=== PATIENT | male | born 1950 | race Caucasian/White ===

== ENCOUNTER 2020-07-18 20:22 | Inpatient (IN) | payer MEDICARE, SELFPAY ==
[2020-07-18 20:31] VITALS: BP 109/72; PULSE 84; RESP 17; TEMP 36.3; O2SAT 97; BMI 38.7
--- NOTE | 2020-07-18 20:43 | CTR_ITS ---
PROCEDURE INFORMATION: Exam: CT Abdomen And Pelvis With Contrast Exam date and time: 07/18/2020 10:46 PM Age: 70 years old Clinical indication: Constipation TECHNIQUE: Imaging protocol: Computed tomography of the abdomen and pelvis with intravenous contrast. Radiation optimization: All CT scans at this facility use at least one of these dose optimization techniques: automated exposure control; mA and/or kV adjustment per patient size (includes targeted exams where dose is matched to clinical indication); or iterative reconstruction. Contrast material: VISI 320; Contrast volume: 95 ml; Contrast route: INTRAVENOUS (IV); COMPARISON: No relevant prior studies available. RADIATION DOSE METRICS: Total DLP (mGy-cm): 1797.71 FINDINGS: Lungs: There is a right upper lobe pulmonary nodularity seen adjacent to the major fissure partially imaged today measuring 3.3 cm AP dimension by 3.5 cm transverse dimension. Further evaluation with a CT examination of the chest is suggested. Liver: Normal. No mass. Gallbladder and bile ducts: Normal. No calcified stones. No ductal dilation. Pancreas: Normal. No ductal dilation. Spleen: Normal. No splenomegaly. Adrenal glands: Normal. No mass. Kidneys and ureters: Normal. No hydronephrosis. Stomach and bowel: Diverticula are seen on the descending and sigmoid colon. There are no inflammatory changes seen to suggest diverticulitis. 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 There is a soft tissue nidus and some fine soft tissue attenuation strands seen within the fatty tumor. There is some irregular bowel wall thickening of the proximal duodenum, possibly the sequela of duodenal ulceration. Appendix: The appendix is visualized and is normal in configuration. Intraperitoneal space: See Vasculature finding. Vasculature: Calcifications are seen within the coronary arteries. Calcifications are present within the thoracic and abdominal aorta, iliac arteries and femoral arteries bilaterally and branches of the celiac and superior mesenteric arteries. Calcifications are seen within the renal arteries bilaterally. There is aneurysmal dilatation of the infrarenal abdominal aorta measuring 3.9 cm transverse dimension by 4.4 cm AP dimension approximately 5 1 cm craniocaudal dimension. Mild irregular mural thrombus is seen predominately within the anterior aspect of the aneurysm. There is no evidence for dissection or extravasation. Lymph nodes: Unremarkable. No enlarged lymph nodes. Urinary bladder: Unremarkable as visualized. Reproductive: Unremarkable as visualized. Bones/joints: Unremarkable. No acute fracture. Soft tissues: See Stomach and bowel finding. CT/CT abdomen pelvis w con* [id number] IMPRESSION: 1. Fat attenuation mucosal mass seen within the stomach along the greater curvature, dimensions given above. Some soft tissue stranding and a soft tissue nidus is seen associated with the fatty mass. 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 2. Irregular bowel wall thickening of the proximal duodenum, possibly the sequela duodenal ulceration. 3. Diverticulosis of the descending and sigmoid colon 4. Aneurysmal dilatation of the infrarenal abdominal aorta measuring 4.4 cm AP dimension and approximately 5.1 cm craniocaudal dimension. There is no evidence for dissection or extravasation. 5. Partially imaged soft tissue nodularity in the right upper lobe adjacent to the major fissure measuring 3.3 cm AP dimension by 3.5 cm transverse dimension. Follow-up evaluation with CT examination is suggested. Radiation Dose CTDIVOL = (mGy): DLP = 1797.71 (mGy-cm)
--- NOTE | 2020-07-18 20:43 | XR_ITS ---
WS: [id number] PORTABLE CHEST HISTORY: sob COMPARISON: None available. Prior CABG. Consolidation in the RIGHT lower lung field. This consolidation has hazy opacification may be related to pleural fluid along the fissure. LEFT lung is clear. Small RIGHT pleural effusion with blunting o f the RIGHT costophrenic angle. Cardiac size: Mildly enlarged cardiac silhouette. Mediastinum/Aorta: Mild atherosclerosis aorta. No osseous abnormality seen. XR/XR chest 1V portable [id number] IMPRESSION: 1. Small RIGHT pleural effusion. 2. Additional hazy opacification at the RIGHT lung base may be fluid along the fissure or pneumonia.
--- NOTE | 2020-07-18 20:43 | CTR_ITS ---
PROCEDURE INFORMATION: Exam: CT Head Without Contrast Exam date and time: 07/18/2020 10:46 PM Age: 70 years old Clinical indication: Weakness, extremity TECHNIQUE: Imaging protocol: Computed tomography of the head without contrast. Radiation optimization: All CT scans at this facility use at least one of these dose optimization techniques: automated exposure control; mA and/or kV adjustment per patient size (includes targeted exams where dose is matched to clinical indication); or iterative reconstruction. COMPARISON: No relevant prior studies available. 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 Mild atrophy and mild white matter chronic microvascular changes are noted. No hemorrhage or CT evidence of acute infarction is seen. Cerebral ventricles: No ventriculomegaly. Bones/joints: Unremarkable. No acute fracture. Paranasal sinuses: Visualized sinuses are unremarkable. No fluid levels. Mastoid air cells: Visualized mastoid air cells are well aerated. Soft tissues: Unremarkable. CT/CT head wo con* [id number] IMPRESSION: No acute intracranial abnormality Radiation Dose CTDIVOL = (mGy): DLP = 857.21 (mGy-cm)
[2020-07-18 20:44] VITALS: BP 124/68; RESP 22; O2SAT 100
--- NOTE | 2020-07-18 20:44 | ECG_ITS ---
[facility] Test Date: 2020-07-18 Pat Name: Ravindra Lam Department: Room: Gender: Male Medical Records Clerk: : 1950 Requested By: Brittany Austin Order Number: [id number] Reading MD: FANAT MARIANO Measurements Intervals [place] Rate: 79 P: 17 WV: 147 QRS: 24 QRSD: 94 T: 93 QT: 359 QTc: 412 Interpretive Statements SINUS RHYTHM NONSPECIFIC ST & T-WAVE ABNORMALITY INTERPRETATION BASED ON A DEFAULT AGE OF 40 YEARS No previous ECG available for comparison Electronically Signed On 07-19-2020 20:05:43 LAMINATING PRESS OPERATOR by FANTA MARIANO [email or web address]/store/NU/[id number] f
--- NOTE | 2020-07-18 20:45 | W.ED.GENADLT ---
HPI - General Adult General: Chief complaint: General Medical Stated complaint: left side numbness/abd swelling Time Seen by Provider: 07/18/20 20:40 Source: patient Mode of arrival: ambulatory Limitations: no limitations History of Present Illness: HPI narrative: 70-year-old male that is here with multiple complaints. He states that he has been having abdominal pain along with nausea and constipation over the last 3 to 4 days. He states his pain is sharp in nature and rates it a 5 out of 10. He also has a history of congestive heart failure and just got over pneumonia 2 weeks ago. He states he had increased swelling in his legs along with chest pain and shortness of breath. He states he had generalized weakness and is having problems getting out of any chairs or standing. He states he is also having numbness to his hands and feet and left side of his face. Associated symptoms: Reports chest pain, dyspnea, malaise and nausea; Deny rash Review of Systems Const: Reports: body aches and malaise Eyes: Denies: blurry vision or eye discomfort ENMT: Denies: throat pain or dental pain Card: Reports: chest pain Resp: Reports: dyspnea GI: Reports: abdominal pain, nausea and constipation : Denies: dysuria Musc: Denies: neck pain or back pain Skin/Breast: Denies: rash Neuro: Reports: numbness in extremities Psych: Denies: depression Simón/Lymph: Denies: easy bruising All/Imm: Denies: urticaria Physical Exam Const: COMMON NORMALS: no acute distress and patient oriented x3 NUTRITIONAL APPEARANCE: obese HENMT: COMMON NORMALS: normocephalic and atraumatic HEAD & SCALP: normocephalic and atraumatic Eye: COMMON NORMALS: Equal, round and reactive pupils present and EOMs intact bilaterally PUPIL: Yes Equal, round and reactive pupils present Neck/C-Spine: COMMON NORMALS: full ROM and supple Chest: COMMONS NORMALS: normal inspection of the chest and normal palpation of entire chest wall Resp: COMMON NORMALS: normal respiratory effort, No retractions, No use of accessory muscles and clear to auscultation bilaterally AUSCULTATION: clear to auscultation bilaterally Cardio: COMMON NORMALS: regular rate, regular rhythm and No murmurs present (Cardio) RATE: regular rate RHYTHM: regular rhythm GI: COMMON NORMALS: Normal to inspection, nondistended, normoactive bowel sounds present, Soft to palpation, non-tender and no masses PALPATION: Yes Soft to palpation Extremity: COMMON NORMALS: normal to inspection and full ROM Neuro: COMMON NORMALS: patient oriented x3, moves all extremities and no focal motor deficits Psych: COMMON NORMALS: mental status grossly normal, Normal thought process present and cooperative THOUGHT PROCESS: Normal thought process present Skin: COMMON NORMALS: no rashes or lesions noted and no wounds GENERAL SKIN EXAM: no rashes or lesions noted Course Vital Signs: Vital signs: Vital Signs Temperature 97.4 F L 07/18/20 20:31 Pulse Rate 90 07/18/20 23:00 Respiratory Rate 14 07/18/20 23:00 Blood Pressure 141/73 07/18/20 23:00 Pulse Oximetry 96 07/18/20 23:00 MDM - General Adult MDM Narrative: Medical decision making narrative: jennifer presents here with generalized weakness and multiple other complaints. CT scan here was negative of his abdomen from no signs of bowel obstruction. Will CT his chest to further evaluate mass seen on CT abdomen. Patient is hyponatremic could be causing his weakness. Spoke to hospitalist will admit for observation for his hyponatremia. Lab Data: Labs: Lab Results 07/18/20 07/18/20 07/18/20 Range/Units 20:49 21:48 21:50 WBC 16.1 H (4.0-10.0) 10^3/ uL RBC 3.17 L (4.1-5.3) 10^6/u L Hgb 9.8 L (11.7-16.6) g/dL Hct 34.2 L (42.0-52.0) % MCV 107.9 H (80-94) fL MCH 30.9 (28.0-34.0) pg MCHC 28.7 L (30.0-36.0) g/dL RDW 13.1 (12.1-15.1) % Plt Count 206 (130-400) 10^3/c mm MPV 10.3 (7.4-10.4) fL Neut % (Auto) 77.0 % Lymph % (Auto) 8.8 % Stephens % (Auto) 10.0 % Eos % (Auto) 2.2 % Baso % (Auto) 0.6 % Neut # (Auto) 12.39 H (1.8-7.7) 10^3/u L Lymph # (Auto) 1.4 (0.8-4.8) 10^3/u L Stephens # (Auto) 1.6 H (0.2-0.9) 10^3/u L Eos # (Auto) 0.4 (0.0-0.8) 10^3/u L Baso # (Auto) 0.1 (0.0-0.1) 10^3/u L Nucleated RBC % (a uto) 0 % Nucleated RBCs # 0.0 /100WBC Sodium (136-145) mmol/L Potassium (3.5-5.1) mmol/L Chloride (98-107) mmol/L Carbon Dioxide (22-29) mmol/L Anion Gap (5-19) BUN (8-23) mg/dL Creatinine (0.7-1.2) mg/dL GFR Calculation (90-130) mL/min Glucose (65-115) mg/dL Calculated Osmolal ity (285-295) mOsm/k g Calcium (8.5-10.5) mg/dL Total Bilirubin (0.15-1.2) mg/dL AST (0-40) U/L ALT (0-41) U/L Alkaline Phosphata se (40-130) IU/L Troponin T Baselin e 40 H (0-15) ng/L NT-Pro-B Natriuret Pep (0-125) pg/mL Total Protein (6.6-8.7) g/dL Albumin (3.5-5.2) g/dL Globulin (1.3-4.6) g/dL Lipase (13-60) U/L Urine Color Yellow (Yellow) Urine Appearance Clear (CLEAR) Urine pH 5 (5-7) Ur Specific Gravit y 1.010 (1.005-1.030) Urine Protein Neg (Negative) Urine Glucose (UA) Norm (Normal) Urine Ketones Negative (Negative) Urine Blood Neg (Negative) Urine Nitrate Negative (Negative) Urine Bilirubin Neg (Negative) Urine Urobilinogen Norm (Negative) mg/dL Ur Leukocyte Mari ase Negative (Negative) SARS-CoV-2 Ag (Rap id) (Negative) 07/18/20 07/18/20 Range/Units 21:50 22:08 WBC (4.0-10.0) 10^3/ uL RBC (4.1-5.3) 10^6/u L Hgb (11.7-16.6) g/dL Hct (42.0-52.0) % MCV (80-94) fL MCH (28.0-34.0) pg MCHC (30.0-36.0) g/dL RDW (12.1-15.1) % Plt Count (130-400) 10^3/c mm MPV (7.4-10.4) fL Neut % (Auto) % Lymph % (Auto) % Stephens % (Auto) % Eos % (Auto) % Baso % (Auto) % Neut # (Auto) (1.8-7.7) 10^3/u L Lymph # (Auto) (0.8-4.8) 10^3/u L Stephens # (Auto) (0.2-0.9) 10^3/u L Eos # (Auto) (0.0-0.8) 10^3/u L Baso # (Auto) (0.0-0.1) 10^3/u L Nucleated RBC % (a uto) % Nucleated RBCs # /100WBC Sodium 124 L (136-145) mmol/L Potassium 4.8 (3.5-5.1) mmol/L Chloride 93 L (98-107) mmol/L Carbon Dioxide 17 L (22-29) mmol/L Anion Gap 18.8 (5-19) BUN 52 H (8-23) mg/dL Creatinine 1.4 H (0.7-1.2) mg/dL GFR Calculation 50.1 L (90-130) mL/min Glucose 102 (65-115) mg/dL Calculated Osmolal ity 272 L (285-295) mOsm/k g Calcium 8.2 L (8.5-10.5) mg/dL Total Bilirubin 0.3 (0.15-1.2) mg/dL AST 17 (0-40) U/L ALT 13 (0-41) U/L Alkaline Phosphata se 68 (40-130) IU/L Troponin T Baselin e (0-15) ng/L NT-Pro-B Natriuret Pep 290 H (0-125) pg/mL Total Protein 6.5 L (6.6-8.7) g/dL Albumin 2.9 L (3.5-5.2) g/dL Globulin 3.6 (1.3-4.6) g/dL Lipase 37 (13-60) U/L Urine Color (Yellow) Urine Appearance (CLEAR) Urine pH (5-7) Ur Specific Gravit y (1.005-1.030) Urine Protein (Negative) Urine Glucose (UA) (Normal) Urine Ketones (Negative) Urine Blood (Negative) Urine Nitrate (Negative) Urine Bilirubin (Negative) Urine Urobilinogen (Negative) mg/dL Ur Leukocyte Mari ase (Negative) SARS-CoV-2 Ag (Rap id) Negative (Negative) Imaging Data^: CT Head: Attestation: I personally reviewed and interpreted this imaging study as follows: Radiologist's impression: [id number] [address] [address] Scan Report Signed Patient: Jennifer Lam Unit #: [id number] : 1950 Age/Sex: 70 / M ADM Date: 07/18/20 Loc: ER Room/Bed: Attending Dr: Ordering Provider/Ordering MD: Brittany Austin MD Date of Service: 07/18/20 Procedure(s): CT head wo con* [id number] Accession Number(s): [id number] Report Number: [id number] PROCEDURE INFORMATION: Exam: CT Head Without Contrast Exam date and time: 07/18/2020 10:46 PM Age: 70 years old Clinical indication: Weakness, extremity TECHNIQUE: Imaging protocol: Computed tomography of the head without contrast. Radiation optimization: All CT scans at this facility use at least one of these dose optimization techniques: automated exposure control; mA and/or kV adjustment per patient size (includes targeted exams where dose is matched to clinical indication); or iterative reconstruction. COMPARISON: No relevant prior studies available. 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 Mild atrophy and mild white matter chronic microvascular changes are noted. No hemorrhage or CT evidence of acute infarction is seen. Cerebral ventricles: No ventriculomegaly. Bones/joints: Unremarkable. No acute fracture. Paranasal sinuses: Visualized sinuses are unremarkable. No fluid levels. Mastoid air cells: Visualized mastoid air cells are well aerated. Soft tissues: Unremarkable. CT/CT head wo con* [id number] IMPRESSION: No acute intracranial abnormality CT Abd/Pel: Radiologist's impression: [facility] [address] [place] [address] CT Scan Report Signed Patient: Jennifer Lam Unit #: [id number] : 1950 Age/Sex: 70 / M ADM Date: 07/18/20 Loc: ER Room/Bed: Attending Dr: Ordering Provider/Ordering MD: Brittany Austin MD Date of Service: 07/18/20 Procedure(s): CT abdomen pelvis w con* [id number] Accession Number(s): [id number] Report Number: [id number] PROCEDURE INFORMATION: Exam: CT Abdomen And Pelvis With Contrast Exam date and time: 07/18/2020 10:46 PM Age: 70 years old Clinical indication: Constipation TECHNIQUE: Imaging protocol: Computed tomography of the abdomen and pelvis with intravenous contrast. Radiation optimization: All CT scans at this facility use at least one of these dose optimization techniques: automated exposure control; mA and/or kV adjustment per patient size (includes targeted exams where dose is matched to clinical indication); or iterative reconstruction. Contrast material: VISI 320; Contrast volume: 95 ml; Contrast route: INTRAVENOUS (IV); COMPARISON: No relevant prior studies available. RADIATION DOSE METRICS: Total DLP (mGy-cm): 1797.71 FINDINGS: Lungs: There is a right upper lobe pulmonary nodularity seen adjacent to the major fissure partially imaged today measuring 3.3 cm AP dimension by 3.5 cm transverse dimension. Further evaluation with a CT examination of the chest is suggested. Liver: Normal. No mass. Gallbladder and bile ducts: Normal. No calcified stones. No ductal dilation. Pancreas: Normal. No ductal dilation. Spleen: Normal. No splenomegaly. Adrenal glands: Normal. No mass. Kidneys and ureters: Normal. No hydronephrosis. Stomach and bowel: Diverticula are seen on the descending and sigmoid colon. There are no inflammatory changes seen to suggest diverticulitis. 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 There is a soft tissue nidus and some fine soft tissue attenuation strands seen within the fatty tumor. There is some irregular bowel wall thickening of the proximal duodenum, possibly the sequela of duodenal ulceration. Appendix: The appendix is visualized and is normal in configuration. Intraperitoneal space: See Vasculature finding. Vasculature: Calcifications are seen within the coronary arteries. Calcifications are present within the thoracic and abdominal aorta, iliac arteries and femoral arteries bilaterally and branches of the celiac and superior mesenteric arteries. Calcifications are seen within the renal arteries bilaterally. There is aneurysmal dilatation of the infrarenal abdominal aorta measuring 3.9 cm transverse dimension by 4.4 cm AP dimension approximately 5 1 cm craniocaudal dimension. Mild irregular mural thrombus is seen predominately within the anterior aspect of the aneurysm. There is no evidence for dissection or extravasation. Lymph nodes: Unremarkable. No enlarged lymph nodes. Urinary bladder: Unremarkable as visualized. Reproductive: Unremarkable as visualized. Bones/joints: Unremarkable. No acute fracture. Soft tissues: See Stomach and bowel finding. CT/CT abdomen pelvis w con* [id number] IMPRESSION: 1. Fat attenuation mucosal mass seen within the stomach along the greater curvature, dimensions given above. Some soft tissue stranding and a soft tissue nidus is seen associated with the fatty mass. 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 2. Irregular bowel wall thickening of the proximal duodenum, possibly the sequela duodenal ulceration. 3. Diverticulosis of the descending and sigmoid colon 4. Aneurysmal dilatation of the infrarenal abdominal aorta measuring 4.4 cm AP dimension and approximately 5.1 cm craniocaudal dimension. There is no evidence for dissection or extravasation. 5. Partially imaged soft tissue nodularity in the right upper lobe adjacent to the major fissure measuring 3.3 cm AP dimension by 3.5 cm transverse dimension. Follow-up evaluation with CT examination is suggested. EKG Data^: EKG 1: Attestation: I personally reviewed and interpreted this EKG as follows: EKG interpretation date: 07/18/20 EKG interpretation time: 21:26 Interpretation: nsr hr [address] or t wave abnormalities qrs 94 qtc 393 Computer generated interpretation: Abdomen/Pelvis CT 07/18/20 20:43 IMPRESSION: 1. Fat attenuation mucosal mass seen within the stomach along the greater curvature, dimensions given above. Some soft tissue stranding and a soft tissue nidus is seen associated with the fatty mass. 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 2. Irregular bowel wall thickening of the proximal duodenum, possibly the sequela duodenal ulceration. 3. Diverticulosis of the descending and sigmoid colon 4. Aneurysmal dilatation of the infrarenal abdominal aorta measuring 4.4 cm AP dimension and approximately 5.1 cm craniocaudal dimension. There is no evidence for dissection or extravasation. 5. Partially imaged soft tissue nodularity in the right upper lobe adjacent to the major fissure measuring 3.3 cm AP dimension by 3.5 cm transverse dimension. Follow-up evaluation with CT examination is suggested. Radiation Dose CTDIVOL = (mGy): DLP = 1797.71 (mGy-cm) Head CT 07/18/20 20:43 IMPRESSION: No acute intracranial abnormality Radiation Dose CTDIVOL = (mGy): DLP = 857.21 (mGy-cm) EKG 2: EKG interpretation date: 07/18/20 EKG interpretation time: 23:11 Interpretation: Normal sinus rhythm heart rate [address] or T wave abnormalities QRS 108 QTc 387 Computer generated interpretation: Abdomen/Pelvis CT 07/18/20 20:43 IMPRESSION: 1. Fat attenuation mucosal mass seen within the stomach along the greater curvature, dimensions given above. Some soft tissue stranding and a soft tissue nidus is seen associated with the fatty mass. 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 2. Irregular bowel wall thickening of the proximal duodenum, possibly the sequela duodenal ulceration. 3. Diverticulosis of the descending and sigmoid colon 4. Aneurysmal dilatation of the infrarenal abdominal aorta measuring 4.4 cm AP dimension and approximately 5.1 cm craniocaudal dimension. There is no evidence for dissection or extravasation. 5. Partially imaged soft tissue nodularity in the right upper lobe adjacent to the major fissure measuring 3.3 cm AP dimension by 3.5 cm transverse dimension. Follow-up evaluation with CT examination is suggested. Radiation Dose CTDIVOL = (mGy): DLP = 1797.71 (mGy-cm) Head CT 07/18/20 20:43 IMPRESSION: No acute intracranial abnormality Radiation Dose CTDIVOL = (mGy): DLP = 857.21 (mGy-cm) Discharge Plan Discharge Patient Disposition: Admitted As Inpatient Clinical Impression: Acute hyponatremia, Weakness Condition: Stable Coding Level of Care Code ED Screen Printer Helper for Mayda Vo
[2020-07-18 22:12] LABS: Add Urine Microscopic? NO
[2020-07-18 22:14] LABS: Basophils # 0.1 10^3/uL (0.0-0.1); Basophils % 0.6 %; Eosinophils # 0.4 10^3/uL (0.0-0.8); Eosinophils % 2.2 %; Hematocrit 34.2 % (42.0-52.0); Hemoglobin 9.8 g/dL (11.7-16.6); Lymphocytes # 1.4 10^3/uL (0.8-4.8); Lymphocytes % 8.8 %; Mean Corpuscular HGB Conc 28.7 g/dL (30.0-36.0); Mean Corpuscular Hemoglobin 30.9 pg (28.0-34.0); Mean Corpuscular Volume 107.9 fL (80-94); Mean Platelet Volume 10.3 fL (7.4-10.4); Monocytes # 1.6 10^3/uL (0.2-0.9); Neutrophils # 12.39 10^3/uL (1.8-7.7); Nucleated Red Blood Cells % 0 %; Platelet Count 206 10^3/cmm (130-400); Red Blood Count 3.17 10^6/uL (4.1-5.3); Red Cell Distribution Width 13.1 % (12.1-15.1); White Blood Count 16.1 10^3/uL (4.0-10.0)
[2020-07-18 22:26] LABS: Bilirubin Urine Neg (Negative); Blood Urine Neg (Negative); Glucose Urine UA Norm (Normal); Ketones Urine Negative (Negative); Leukocyte Esterase Urine Negative (Negative); Nitrate Urine Negative (Negative); Protein Urine Neg (Negative); Urine Appearance Clear (CLEAR); Urine Color Yellow (Yellow); Urobilinogen Urine Norm (Negative); pH Urine 5 (5-7)
[2020-07-18 22:32] LABS: SARS Covid-2 Antigen Negative (Negative)
[2020-07-18 22:35] LABS: Troponin(5th) Baseline 40 ng/L (0-15)
[2020-07-18 22:44] LABS: Alanine Aminotransferase 13 U/L (0-41); Albumin Level 2.9 g/dL (3.5-5.2); Alkaline Phosphatase 68 IU/L (40-130); Blood Urea Nitrogen 52 mg/dL (8-23); Calcium 8.2 mg/dL (8.5-10.5); Carbon Dioxide 17 mmol/L (22-29); Chloride 93 mmol/L (98-107); Globulin 3.6 g/dL (1.3-4.6); Glomerular Filtration Rate 50.1 mL/min (90-130); Glucose 102 mg/dL (65-115); Lipase 37 U/L (13-60); NT Pro B Type Natriuretic Pept 290 pg/mL (0-125); Osmolality Calculated 272 mOsm/kg (285-295); Sodium 124 mmol/L (136-145); Total Bilirubin 0.3 mg/dL (0.15-1.2); Total Protein 6.5 g/dL (6.6-8.7)
--- NOTE | 2020-07-18 22:44 | ECG_ITS ---
[facility] Test Date: 2020-07-18 Pat Name: Ravindra Lam Department: Room: Gender: Male Fiscal Specialist: : 1950 Requested By: Brittany Austin Order Number: [id number] Reading MD: FANTA MARIANO Measurements Intervals [place] Rate: 87 P: 45 AK: 154 QRS: 31 QRSD: 108 T: 87 QT: 342 QTc: 414 Interpretive Statements SINUS RHYTHM WITH OCCASIONAL VENTRICULAR PREMATURE COMPLEXES WITH OCCASIONAL SUPRAVENTRICULAR PREMATURE COMPLEXES NONSPECIFIC ST & T-WAVE ABNORMALITY Compared to ECG 07/18/2020 21:26:39 Ventricular premature complex(es) now present T-wave abnormality still present Electronically Signed On 07-19-2020 20:07:26 RELATIONSHIP EXECUTIVE by FANTA MARIANO [email or web address]/OM/[id number]
[2020-07-18 22:45] LABS: Anion Gap 18.8 (5-19); Aspartate Amino Transferase 17 U/L (0-40); Potassium 4.8 mmol/L (3.5-5.1)
[2020-07-18 22:53] VITALS: BP 124/68; O2SAT 96
[2020-07-18] MEDS: iodixanol 320 mg/mL 100mL Btl IV (22:58)
[2020-07-18 23:00] VITALS: BP 141/73; PULSE 90; RESP 14; O2SAT 96
[2020-07-18] MEDS: sodium chloride 0.9% 1,000 ML 999 ML IV (23:14)
[2020-07-19] VITALS (13 sets, daily range): BP systolic 63–135; BP diastolic 41–74; PULSE 74–108; RESP 16–22; TEMP 36.4–37.1; O2SAT 93–100
--- NOTE | 2020-07-19 00:13 | CTR_ITS ---
PROCEDURE INFORMATION: Exam: CT Chest Without Contrast; Diagnostic Exam date and time: 07/19/2020 12:19 AM Age: 70 years old Clinical indication: Abnormal findings; Abnormal radiologic exam of lung or chest; Prior surgery; Surgery date: 6+ months; Surgery type: Cabg; Additional info: Mass TECHNIQUE: Imaging protocol: Diagnostic computed tomography of the chest without contrast. Radiation optimization: All CT scans at this facility use at least one of these dose optimization techniques: automated exposure control; mA and/or kV adjustment per patient size (includes targeted exams where dose is matched to clinical indication); or iterative reconstruction. COMPARISON: CR XR chest 1V portable [id number] 07/18/2020 9:11 PM RADIATION DOSE METRICS: Total DLP (mGy-cm): 1008.61 FINDINGS: Lungs: Unremarkable. No consolidation. No masses. Pleural space: There is a small right pleural effusion. There is pleural thickening and fluid seen extending into the minor fissure peripherally on the right measuring approximately 3.3 cm transverse dimension by 2.4 cm craniocaudal dimension by 2.5 cm AP dimension. Some irregular parietal pleural thickening is seen inferior to the minor fissure extending to the costophrenic recess as well. Heart: Calcifications are present within the coronary arteries. Aorta: Unremarkable. No aortic aneurysm. Lymph nodes: Unremarkable. No enlarged lymph nodes. Bones/joints: Unremarkable. No acute fracture. Soft tissues: Unremarkable. Other findings: Calcifications are seen within the thoracic and abdominal aorta and within the subclavian arteries bilaterally.. Abdominal findings are reported separately. CT/CT chest con [id number] IMPRESSION: 1. There is a small right pleural effusion 2. There is some irregular pleural thickening seen in the right lower hemithorax with some fluid and pleural thickening seen extending into the minor fissure creating a pseudo mass. This may represent chronic pleural scarring. Radiation Dose CTDIVOL = (mGy): DLP = 1008.61 (mGy-cm)
--- NOTE | 2020-07-19 02:06 | PC.NURSE ---
i agree with this assessment
[2020-07-19 03:34] LABS: Troponin 5 6HR 41.95 ng/L (0-15); Troponin 5 6HR Delta 1.95 ng/L (0-12)
[2020-07-19 03:43] LABS: Thyroid Stimulating Hormone 0.81 uIU/mL (0.27-4.20)
[2020-07-19 03:55] LABS: Cortisol Random 13.94 ug/mL (2.47-19.5)
--- NOTE | 2020-07-19 05:42 | P.HP_ITS ---
Providers/Chief Complaint Admitting Physician: Yu Augustin MD Primary Care Provider: Nellie Joe NP Chief Complaint: left side numbness/abd swelling History of Present Illness Ravindra Lam is a 70 year old male with PMH CAD s/p CABG and stenting, last ~10 years ago, has not had cardiology follow up in few years, HLD, HTN, OA affecting hips and knees per history , recommended multiple joint replacements. Over the past 4-5 months patient has had significant impairment in motility to the point where he is unable to walk, lays on couch at home, has developed pressure ulceration over his sacrum and is developing new weeping ulceration and redness over his left calf. He is able to sit at bedside with much assistance. 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 He follows with [facility] [place] with [facility] most recently. Presented to ER today mainly c/o abdominal discomfort and distension over the past 3-4 days. Though he was constipated an received enema 2 days ago without a BM. Able to pass flatus. Over the same period, also intermittently reports chest disomfort as a band like pain below the ribs radiating to mid chest. He thinks it is made worse by exertion, however unceratin regarding the same. Last stress test was at least 4-5 years ago. No nausea,vomiting. Tolerates po intake. No dyspnea,cough. Diagnostics in the ER notable for leukocytosis with WBC 16, hyponatremia Na 124 (unknown last baseline), Hb 9.8, cr 1.4 , BNP 290, elavted troponin at 40, 2hr delta not significant, negative covid ag. 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 Ct chest with small R pleural effusion and pleural thickening. No gross consolidation. EKG sinus rhythm without acute ST-T wave changes. Review of Systems General: Reports: 10 or more systems reviewed and unremarkable except in HPI and below Const: Denies: fever(s), chills or body aches Eyes: Denies: change in vision, blurry vision or photophobia ENMT: Reports: hoarseness; Denies: throat pain, enlarged tonsils, odynophagia or nasal congestion Card: Denies: chest pain, palpitations, irregular heart rhythm, edema, swelling of feet/ankles, lightheadedness, pre-syncope, dyspnea on exertion or orthopnea Resp: Denies: dyspnea, productive cough, non-productive cough, wheezing, strid or, pain on inspiration, change in phlegm color, hemoptysis or chest congestion GI: Denies: abdominal pain, nausea, vomiting, hematemesis, coffee ground emesis, dysphagia, heartburn, diarrhea, constipation, GI cramping, change in stool character, hematochezia or melena : Denies: flank pain, dysuria, urinary frequency, urinary urgency, urinary hesitancy or hematuria Musc: Denies: neck pain, back pain, extremity pain, joint swelling, joint warmth or deformity Neuro: Denies: headache(s), numbness in extremities, weakness in extremities, sensory changes, difficulty walking, frequent falls, dizziness, vertigo, behavioral changes, Slurred speech present or seizure-like activity Psych: Denies: anxiety, depression, suicidal ideation or homicidal ideation Endo: Denies: polyuria, polydipsia, tired all the time, cold intolerance or hot flashes Simón/Lymph: Denies: easy bruising or easy bleeding Medications/Allergies Home Medications Medication Instructions Recorded Confirmed Last Taken Type atorvastatin 40 mg PO DAILY 07/19/20 07/19/20 Unknown History baclofen 10 mg PO TID PRN 07/19/20 07/19/20 Unknown History carvedilol 12.5 mg PO Q12H 07/19/20 07/19/20 Unknown History furosemide 20 mg PO DAILY 07/19/20 07/19/20 Unknown History gabapentin 400 mg PO TID 07/19/20 07/19/20 Unknown History hydrocodone-acetaminophen 1 tab PO BID PRN 07/19/20 07/19/20 Unknown History lisinopril 40 mg PO DAILY 07/19/20 07/19/20 Unknown History magnesium oxide 400 mg PO DAILY 07/19/20 07/19/20 Unknown History meloxicam 15 mg PO DAILY 07/19/20 07/19/20 Unknown History nitroglycerin 0.4 mg SUBLINGUAL Q5MIN PRN 07/19/20 07/19/20 Unknown History Allergies Allergy/AdvReac Type Severity Reaction Status Date / Time No Known Allergies Allergy Verified 07/18/20 20:38 PFSH Acute PFSH: Medical History (Updated 07/19/20 @ 06:35 by Yu Augustin MD) CAD (coronary artery disease) Hyperlipidemia Surgical History (Updated 07/19/20 @ 06:26 by Yu Augustin MD) Hx of CABG Social History (Updated 07/19/20 @ 06:27 by Yu Augustin MD) Smoking and tobacco status: unknown if ever smoked Vitals/I&O/Wt Last Vital Signs Temp 98.3 F 07/19/20 04:00 Pulse 103 H 07/19/20 04:00 Resp 20 H 07/19/20 04:00 BP 93/60 07/19/20 04:00 Pulse Ox 96 07/19/20 04:00 07/18/20 07/18/20 07/19/20 14:59 22:59 06:59 Output Total 200 / 200 Balance -200 / -200 Weight last 48 hrs Weight 122.47 kg Physical Exam Narrative: EXAM NARRATIVE: GEN: Awake, alert and oriented, no acute distress , CVS: S1S2 N RS: CTA B/L Abd: Soft, nt/nd , bs+ DIRECTOR PARK: no focal neuro deficits, however significantly limited mobility due to arhritis, Ext: joint swelling and deformity over MTP joints, poor pripehral pulses over B/L LE with dusky hue over feet, left mid calf weeping ulcers with cellulitis, Sacral pressure ulcers stage 2, strectched shiny skin, overall appears to be suggestive of PAD. Data : 07/18/20 21:50 07/18/20 21:50 A&P Assessment and plan (1) Cellulitis: Cellulitis and weeping ulcers over LLE start cefazolin empirically and monitor for improvement no reported h/o DM, check HbA1c for screening given CAD, HLD Check LE venous duplex for venous insufficiency Signs of PAD including poor peripheral pulses, dusky feet, strectched shiny skin and ulceration - check LE aretrial duplex to assess for PAD Status: Acute Qualifiers: Site of cellulitis: extremity Site of cellulitis of extremity: lower extremity Laterality: left Qualified Code(s): L03.116 - Cellulitis of left lower limb (2) Pressure ulcer: Over sacrum, stage 2, wet to dry dressing Status: Acute Qualifiers: Pressure injury location: sacral region Pressure injury stage: stage 2 Qualified Code(s): L89.152 - Pressure ulcer of sacral region, stage 2 (3) Acute hyponatremia: unknown last baseline , request records from PMD No neuro deficits check TSH, cortisol, urine lytes Clinically appears to be euvolemic, BNP not elevated Status: Acute (4) Hyperlipidemia: continue statins Status: Acute Qualifiers: Hyperlipidemia type: unspecified Qualified Code(s): E78.5 - Hyper lipidemia, unspecified (5) CAD (coronary artery disease): past h/o CAD with stenting and CABG Lost to f/up with cardiology Do not see ASA on list of medications, he is unsure of his medications Start ASA 81, continue carvediolol, hold lisinorpil given cr 1.4 with unknown baseline C/o atypical chest pain , no acute ST-T wave changes on EKG, tropinin mild elevated but without significant delta, less concerning for AMI, however may need stress test to further evaluate obtain records from PCP echocardiogram to assess for EF, RWMAs Status: Acute Qualifiers: Coronary Disease-Associated Artery/Lesion type: unspecified vessel or lesion type [place] vs. 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 , also concern for duodenal ulceration Start protonix 40mg po BID likely EGD as outpatient Status: Acute (7) CHF (congestive heart failure): unknown if he has CHF, however there is lasix on medication list continue lasix 20mg po for now await echocardiogram currently clinically euvolemic Status: Acute Qualifiers: Heart failure type: unspecified Heart failure chronicity: chronic Qualified Code(s): I50.9 - Heart failure, unspecified (8) Lower limb ulcer: as above Status: Acute Qualifiers: Laterality: left Non-pressure ulcer stage: unspecified non-pressure ulcer stage Qualified Code(s): L97.929 - Non-pressure chronic ulcer of unspecified part of left lower leg with unspecified severity (9) Osteoarthritis: reports OA of knees and hips, has been recommended joint replacements earlier this year due to significant mobility impairment and resulting deconditioing, however this has been delayed due to ongoing pandemic. Currelty mobility restricted to the point of causing pressure ulcers PT/OT eval Family unable to assist with ambulation at home, may benefit from SNF , case mgmt consult for same Status: Acute Qualifiers: Osteoarthritis location: multiple joints Osteoarthritis type: unspecif ied Qualified Code(s): M15.9 - Polyosteoarthritis, unspecified (10) Gait instability: Status: Acute (11) Physical deconditioning: Status: Acute (12) TIMBO (acute kidney injury): unknown last baseline hold lisinorpil for now while awiating records from PCP Stop meloxicam, continue norco and gabapentin for pain Status: Acute Additional A&P Information DVT ppx: lovenox Full code Attestations Medical Necessity Statement*: >anticipate 2midnight admission for iv abx for cellulitis, evalation and management of ulcers incl vascular studies, PT/OT assessment for severe deconditioning, mobility restriction, dispo planning Coding Level of Care Code Acute Internal Affairs Commander for g Fwd Diagnoses Cellulitis L03.116 Site of cellulitis: extremity Site of cellulitis of extremity: lower extremity Laterality: left Pressure ulcer L89.152 Pressure injury location: sacral region Pressure injury stage: stage 2 Acute hyponatremia E87.1 Hyperlipidemia E78.5 Hyperlipidemia type: unspecified CAD (coronary artery disease) I25.119 Coronary Disease-Associated Artery/Lesion type: unspecified vessel or lesion type [place] vs. transplanted heart: [place] heart Associated angina: with unspecified angina Mass of stomach K31.89 CHF (congestive heart failure) I50.9 Heart failure type: unspecified Heart failure chronicity: chronic Lower limb ulcer L97.929 Laterality: left Non-pressure ulcer stage: unspecified non-pressure ulcer stage Osteoarthritis M15.9 Osteoarthritis location: multiple joints Osteoarthritis type: unspecified Gait instability R26.81 Physical deconditioning R53.81 TIMBO (acute kidney injury) N17.9
[2020-07-19] MEDS: enoxaparin 40 mg/0.4 mL Syringe SUBCUT (06:39)
[2020-07-19 06:46] LABS: Chol HDL Ratio 3.42 mg/dL (1.0-5.00); Cholesterol 130 mg/dL (0-200); HDL Cholesterol 38 mg/dL (60-100); LDL Cholesterol Calculated 68 mg/dL (50-129); LDL HDL Ratio 1.79 RATIO (0.00-3.22); Triglycerides 119 mg/dL (0-150)
[2020-07-19 07:18] LABS: Estmated Average Glucose 120; Hemoglobin A1C 5.8 % (4.0-6.0)
[2020-07-19 07:44] LABS: Erythrocyte Sedimentation Rate > 120 mm/hr (0-10)
[2020-07-19 08:21] LABS: Potassium, Radom Urine 37 mmol/L; Urine Creatinine 96 mg/dL (39-259); Urine Random Chloride 24 mmol/L; Urine Random Sodium 29 mmol/L
[2020-07-19] MEDS: carvedilol 12.5 mg Tablet PO (08:27)
[2020-07-19] MEDS: FUROsemide 20 mg Tablet PO (08:27)
[2020-07-19] MEDS: atorvastatin 40 mg Tablet PO (08:27)
[2020-07-19] MEDS: magnesium oxide 400 mg tablet PO (08:27)
[2020-07-19] MEDS: gabapentin 400 mg Capsule PO ×2 (08:27→16:48)
[2020-07-19] MEDS: aspirin 81 mg EC Tablet PO (08:27)
[2020-07-19] MEDS: pantoprazole DR 40 mg Tablet PO ×2 (08:27→18:10)
[2020-07-19] MEDS: HYDROcodone-acetaminophen 5-325 mg Tablet 1 TAB PO (10:11)
[2020-07-19] MEDS: baclofen 10 mg Tablet PO (10:11)
[2020-07-19] MEDS: sodium chloride 0.9% 500 ML 999 ML IV ×2 (13:11→21:34)
[2020-07-19] MEDS: sodium chloride 0.9% 500 ML IV (13:47)
--- NOTE | 2020-07-19 18:05 | ECG_ITS ---
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1950 Requested By: Latasha Addison Order Number: [id number] Reading MD: FANTA MARIANO Measurements Intervals [place] Rate: 110 P: 6 VT: 156 QRS: 6 QRSD: 103 T: 183 QT: 304 QTc: 411 Interpretive Statements SINUS TACHYCARDIA WITH FREQUENT SUPRAVENTRICULAR PREMATURE COMPLEXES ST DEVIATION AND MODERATE T-WAVE ABNORMALITY, CONSIDER IRMA LATERAL ISCHEMIA [-0.1+ mV T WAVE IN I/aVL/V5/V6],Compared to ECG 07/18/2020 23:11:54 Possible ischemia now present Sinus rhythm no longer present Ventricular premature complex(es) no longer present T-wave abnormality still present Electronically Signed On 07-19-2020 19:58:20 PULLING UNIT OPERATOR by FANTA MARIANO [email or web address]
[2020-07-19] MEDS: carvedilol 3.125 mg Tablet PO (18:10)
[2020-07-19] MEDS: sodium chloride 0.9% 500 ML 250 ML IV (18:14)
--- NOTE | 2020-07-19 19:04 | P.PN_ITS ---
Subjective Subjective: Interval history: I have seen patient several times today. This morning he refused echocardiogram and carotid ultrasounds. He was anxious and requesting to go home. I talked with him for a while and he stated that the issue was that he was just not at home. Every time he opened up his eyes he was scared and did not know where he was. At home he takes pain medications frequently by his report, saying that he takes them like candy . He is only prescribed twice daily pain medication that I can see from the home medication list. He does take baclofen sometimes. He had not had any of these in a day or so so we decided to see if he was less anxious or scared after getting them on board. His carvedilol that was at 12.5 mg and Lasix of 20 mg had been given not too long prior to this. After receiving medications, patient's blood pressure dropped as low as 60s to 70s systolic. Responded to fluids, requiring a total of about 2 L over this afternoon. I have decreased his carvedilol to 3.125 p.o. every 12 hours, held the Lasix. Lisinopril is currently held due to unknown baseline renal function. I held nitroglycerin as well. There was no record of him having received any. Twelve- lead EKG with concerning ischemic changes during an episode of chest pain that actually occurred when his blood pressure had normalized. He had no other vital sign changes. He did not receive any specific treatment for the pain and it resolved on its own. Known history of coronary artery disease with prior CABG and stenting though no recent cardiac follow-up. I moved patient to a private room to help deal with his not feeling like he could stay here. He is not willing to admit that he is doing a bit better in this regard but he does seem to be. Discussed EKG findings with Dr. Oneal and he has agreed to see Mr. Lam in consultation. We will move him to first floor for closer monitoring. Vitals/I&O/Wt Last Vital Signs Temp 97.6 F 07/19/20 18:08 Pulse 108 H 07/19/20 18:08 Resp 20 H 07/19/20 18:08 BP 112/65 07/19/20 18:08 Pulse Ox 97 07/19/20 18:08 07/19/20 07/19/20 07/19/20 06:59 14:59 22:59 Intake Total 280 / 280 120 / 400 Output Total 200 / 200 Balance -200 / -200 280 / 280 120 / 400 Weight last 48 hrs Weight 125.6 kg Weight 122.47 kg Physical Exam Narrative: EXAM NARRATIVE: Const: OTHER: Alert, anxious, looks chronically ill and like he does not feel well HENMT: OTHER: Normocephalic atraumatic, moist mucus membranes Eye: OTHER: Extraocular movements intact Neck/C-Spine: OTHER: Supple Resp: OTHER: Clear to auscultation bilaterally, no wheezing noted, no rales or rhonchi Cardio: OTHER: Regular rate and rhythm GI: OTHER: Abdomen soft, nontender, obese, positive bowel sounds Extremity: NARRATIVE EXTREMITY EXAM: Edematous lower extremities Neuro: OTHER: Speech clear, face symmetric, moves all extremities though limited by pain, mildly tremulous when more anxious Skin: OTHER: Chronic stasis changes to both lower extremities, left lower extremity with more erythema and open sores. Erythematous facies. Data : 07/18/20 21:50 07/18/20 21:50 Micro: Microbiology 07/19/20 07:35 MRSA Culture - Final Nose A&P Assessment and plan (1) Weakness: Progressively worsening to the point that he is not able to care for his activities of daily living Status: Acute (2) TIMBO (acute kidney injury): On diuretics and DOYLE inhibitor chronically, volume depleted Status: Acute (3) Hypotension: Timeframe of hypertension developing appears to be related to medication administration including antihypertensives and pain medicine plus muscle relaxers. Has responded to fluids but required boluses today Status: Acute Qualifiers: Hypotension type: hypotension due to drug Qualified Code(s): I95.2 - Hypotension due to drugs (4) Acute hyponatremia: Currently feels secondary to volume but with pulmonary nodule have to keep in mind SIADH Status: Acute (5) Cellulitis: Distal extremities left greater than right Status: Acute Qualifiers: Site of cellulitis: extremity Site of cellulitis of extremity: lower extremity Laterality: left Qualified Code(s): L03.116 - Cellulitis of left lower limb (6) Lower limb ulcer: Left lower extremity Status: Acute Qualifiers: Laterality: left Non-pressure ulcer stage: unspecified non-pressure ulcer stage Qualified Code(s): L97.929 - Non-pressure chronic ulcer of unspecified part of left lower leg with unspecified severity (7) Pressure ulcer: Sacral area Status: Acute Qualifiers: Pressure injury location: sacral region Pressure injury stage: stage 2 Qualified Code(s): L89.152 - Pressure ulcer of sacral region, stage 2 (8) Pulmonary nodule: 3.3 x 3.5 cm right upper lobe noted on CT abs/pelvis; CT chest suggested this was a pseudomass Status: Acute (9) Mass of stomach: 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 and, also noted was some thickening in the duodenum suggesting potential duodenal ulcer Status: Acute (10) CHF (congestive heart failure): Ejection fraction and type unknown, declined echocardiogram this morning but is currently considering allowing it to be done tomorrow Status: Chronic Qualifiers: Heart failure type: unspecified Heart failure chronicity: chronic Qualified Code(s): I50.9 - Heart failure, unspecified (11) CAD (coronary artery disease): With history of previous bypass, has had a couple of episodes of chest pain today and had EKG concerning for ischemic changes, chest pain episode for which EKG was done resolved without focused intervention Status: Chronic Qualifiers: Coronary Disease-Associated Artery/Lesion type: unspecified vessel or lesion type [place] vs. transplanted heart: [place] heart Associated angina: with unspecified angina Qualified Code(s): I25.119 - Atherosclerotic heart disease of [place] coronary artery with unspecified angina pectoris (12) Osteoarthritis: Severe, has been all that he needs joint replacements, limited mobility Status: Chronic Qualifiers: Osteoarthritis location: multiple joints Osteoarthritis type: unspecified Qualified Code(s): M15.9 - Polyosteoarthritis, unspecified (13) Physical deconditioning: Related to above Status: Acute (14) Anxiety: This is a contributing factor to his request to leave AMA today. He does not like the environment because it is not his home and it is not familiar to him. Status: Chronic Additional A&P Information Elevated sed rate Patient moved to a private room to help with his anxiety Added low-dose Xanax to see if it would help Decreased carvedilol to 3.125 mg twice a day, hold Lasix for now Continue fluids Monitor renal function Decreased baclofen dosing secondary to hypotension earlier today, he states that even though it is written as an as needed medicine that he takes it regularly Continue hydrocodone, patient indicated to me that he eats it like candy because he hurts so much though was unable to specify of one particular place hurting more than others Continue antibiotics,wound care Monitor wounds for need for surgical intervention Serial cardiac enzymes Cardiology consultation PPI, watch for any GI bleeding PT eval ordered Lovenox for DVT prpophylaxis Supportive care otherwise Full code Attestations Medical Necessity Statement*: Requires ongoing inpatient stay for management of multiple issues noted above. Coding Level of Care Code Acute Addictions Recovery Specialist for Chg Fwd Diagnoses Weakness R53.1 TIMBO (acute kidney injury) N17.9 Hypotension I95.2 Hypotension type: hypotension due to drug Acute hyponatremia E87.1 Cellulitis L03.116 Site of cellulitis: extremity Site of cellulitis of extremity: lower extremity Laterality: left Lower limb ulcer L97.929 Laterality: left Non-pressure ulcer stage: unspecified non-pressure ulcer stage Pressure ulcer L89.152 Pressure injury location: sacral region Pressure injury stage: stage 2 Pulmonary nodule R91.1 Mass of stomach K31.89 CHF (congestive heart failure) I50.9 Heart failure type: unspecified Heart failure chronicity: chronic CAD (coronary artery disease) I25.119 Coronary Disease-Associated Artery/Lesion type: unspecified vessel or lesion type [place] vs. transplanted heart: [place] heart Associated angina: with unspecified angina Osteoarthritis M15.9 Osteoarthritis location: multiple joints Osteoarthritis type: unspecified Physical deconditioning R53.81 Anxiety F41.9
--- NOTE | 2020-07-19 20:11 | P.CONIM_ITS ---
Providers/Reason For Consult Consulting Physican/Specialty*: Cardiology Reason for Consult*: Hypertension, abnormal EKG Attending Physician: Latasha Addison MD Primary Care Provider: Nellie Joe NP History of Present Illness History of Present Illness Ravindra Lam is a 70 year old male past medical history significant for coronary artery disease history of CABG, history of stent placement in unknown vessels please note that patient is lethargic and confused and not able to ob tain full history data as per Dr. Addison, patient was admitted to the hospital with abdominal distention pain lethargy and confusion. Twelve-lead EKG was suspicious for anterolateral ischemia it is the reason we have been asked to see patient. Patient opens his eyes but do not follow command and go back to sleep he was hypotensive. He has cellulitis on the left leg and sacral ulcer which is also infected. He was also noted to be in acute renal failure. For hypotension he was given IV fluid after that his blood pressure came up above 100 systolic. Twelve-lead repeat EKG showed resolution of anterolateral ST depressions. Currently patient denies any chest pain when I ask him in detail he is he thinks he is feeling better now. Meds/Allergies Home Medications and Allergies Home Medications Medication Instructions Recorded Confirmed Last Taken Type atorvastatin 40 mg PO DAILY 07/19/20 07/19/20 Unknown History baclofen 10 mg PO TID PRN 07/19/20 07/19/20 Unknown History carvedilol 12.5 mg PO Q12H 07/19/20 07/19/20 Unknown History furosemide 20 mg PO DAILY 07/19/20 07/19/20 Unknown History gabapentin 400 mg PO TID 07/19/20 07/19/20 Unknown History hydrocodone-acetaminophen 1 tab PO BID PRN 07/19/20 07/19/20 Unknown History lisinopril 40 mg PO DAILY 07/19/20 07/19/20 Unknown History magnesium oxide 400 mg PO DAILY 07/19/20 07/19/20 Unknown History meloxicam 15 mg PO DAILY 07/19/20 07/19/20 Unknown History nitroglycerin 0.4 mg SUBLINGUAL Q5MIN PRN 07/19/20 07/19/20 Unknown History Allergies Allergy/AdvReac Type Severity Reaction Status Date / Time No Known Allergies Allergy Verified 07/20/20 15:04 Current Medications Current Medications Generic Name Dose Route Start Last Admin Trade Name Freq PRN Reason Stop Dose Admin Hydrocodone Bitart/Acetaminophen 1 tab 07/19/20 05:41 07/19/20 10:11 Hydrocodone-Acetaminophen 5-325 Mg Tablet PO 1 tab BID PRN Administration Pain Aspirin 81 mg 07/19/20 09:00 07/19/20 08:27 Aspirin 81 Mg Ec Tablet PO 81 mg DAILY MANUELA Administration Atorvastatin Calcium 40 mg 07/19/20 09:00 07/19/20 08:27 Atorvastatin 40 Mg Tablet PO 40 mg DAILY MANUELA Administration Carvedilol 3.125 mg 07/19/20 18:00 07/19/20 18:10 Carvedilol 3.125 Mg Tablet PO 3.125 mg Q12H MANUELA Administration Enoxaparin Sodium 40 mg 07/19/20 05:45 07/19/20 06:39 Enoxaparin 40 Mg/0.4 Ml Syringe SUBCUT 40 mg Q24H MANUELA Administration Gabapentin 400 mg 07/19/20 09:00 07/19/20 16:48 Gabapentin 400 Mg Capsule PO 400 mg TID MANUELA Administration Cefazolin Sodium 2,000 mg/ 60 mls @ 100 mls/hr 07/19/20 06:45 07/19/20 15:40 Sodium Chloride IV 100 mls/hr Q8H MANUELA Administration Magnesium Oxide 400 mg 07/19/20 09:00 07/19/20 08:27 Magnesium Oxide 400 Mg Tablet PO 400 mg DAILY MANUELA Administration Pantoprazole Sodium 40 mg 07/19/20 09:00 07/19/20 18:[address] 40 Mg Tablet PO 40 mg BID MANUELA Administration PFSH Acute PFSH: Medical History (Updated 07/20/20 @ 14:47 by Jim Pringle MD) Aneurysm of infrarenal abdominal aorta 4.4cm AP, 5.1 cm craniocaudal on 07/19/2020 CAD (coronary artery disease) CHF (congestive heart failure) Hyperlipidemia Surgical History (Updated 07/19/20 @ 06:26 by Yu Augustin MD) Hx of CABG Social History (Updated 07/19/20 @ 06:27 by Yu Augustin MD) Smoking and tobacco status: unknown if ever smoked Vitals/I&O/Wt Last Vital Signs Temp 98.4 F 07/19/20 19:51 Pulse 79 07/19/20 19:51 Resp 22 H 07/19/20 19:51 BP 93/57 07/19/20 19:51 Pulse Ox 94 07/19/20 19:51 07/19/20 07/19/20 07/19/20 06:59 14:59 22:59 Intake Total 280 / 280 120 / 400 Output Total 200 / 200 Balance -200 / -200 280 / 280 120 / 400 Weight last 48 hrs Weight 276 lb 14.4 oz Weight 270 lb Physical Exam Narrative: EXAM NARRATIVE: GENERAL: Patient is lethargic disoriented and confused opens his eyes occasionally respond to command and try to answer question. He told me he is not any chest pain. NECK: No jugular vein distension. HEENT: No cyanosis. No icterus. No pallor. HEART: Regular S1 and S2. No murmur, rub or gallop. LUNGS: Clear to auscultate bilaterally. ABDOMEN: Mildly distended but nontender no rebound CENTRAL NERVOUS SYSTEM: Grossly nonfocal. EXTREMITIES: Lower extremities with 1+ edema bilaterally. Left leg cellulitis Data Micro: Micro: Microbiology 07/19/20 07:35 MRSA Culture - Fin al Nose A&P Assessment and plan (1) Sepsis: Patient appeared to be septic with white cell count high left leg cellulitis diffuse sacral wound and hypertension. We will give him IV bolus and continue IV fluid. Cultures and antibiotic at as per medicine Status: Acute (2) CAD (coronary artery disease): Currently denies chest pain however abdominal pain could be from coronary artery disease may need other etiology to be ruled out. Continue monitoring cardiac markers. EKG changes due to hypotension and underlying coronary artery disease with demand ischemia. Status: Chronic Qualifiers: Associated angina: with unspecified angina Coronary Disease-Associated Artery/Lesion type: unspecified vessel or lesion type [place] vs. transplanted heart: [place] heart Qualified Code(s): I25.119 - Atherosclerotic heart disease of [place] coronary artery with unspecified angina pectoris (3) Abnormal EKG: As above could be due to demand ischemia secondary to hypotension and sepsis. Continue to monitor repeat EKG shows resolution of anterolateral ST depression and ST elevation in the aVR after bolus of IV fluid Status: Acute (4) CHF (congestive heart failure): Currently on dry side. Discontinue diuretics Status: Chronic Qualifiers: Heart failure chronicity: chronic Heart failure type: unspecified Qualified Code(s): I50.9 - Heart failure, unspecified (5) Hypotension: Secondary to sepsis continue IV fluid and antibiotics Status: Acute (6) TIMBO (acute kidney injury): Due to prerenal, IV fluid challenge was given continue IV fluid Status: Acute (7) Cellulitis: Antibiotics as per medicine. Status: Acute Qualifiers: Laterality: left Site of cellulitis: extremity Site of cellulitis of extremity: lower extremity Qualified Code(s): L03.116 - Cellulitis of left lower limb Consult Attestations Medical Necessity Statement: Patient requires continuation of general hospitalization for above defined care. Coding Level of Care Code New Pt Acute Viscera Washer for Chg Fwd Patient Type New History Comprehensive Exam Comprehensive Medical Decision Making High Complexity Diagnoses Sepsis A41.9 CAD (coronary artery disease) I25.119 Associated angina: with unspecified angina Coronary Disease-Associated Artery/Lesion type: unspecified vessel or lesion type [place] vs. transplanted heart: [place] heart Abnormal EKG R94.31 CHF (congestive heart failure) I50.9 Heart failure chronicity: chronic Heart failure type: unspecified Hypotension I95.9 TIMBO (acute kidney injury) N17.9 Cellulitis L03.116 Laterality: left Site of cellulitis: extremity Site of cellulitis of extremity: lower extremity
[2020-07-19 20:46] LABS: Troponin(5th) Baseline 88 ng/L (0-15)
--- NOTE | 2020-07-19 20:46 | PC.NURSE ---
Patient received from [facility] via bed. Patient is lethargic. Will open eyes to touch. No verbal response. Dr Oneal in to see patient. EKG obtained. Received verbal orders for NS bolus 500ml now and to NS to run 100ml/hr continuous. Assessment completed as documented.
--- NOTE | 2020-07-19 20:59 | ECG_ITS ---
[facility] Test Date: 2020-07-19 Pat Name: Ravindra Lam Department: Room: 107 Gender: Male Hat Maker: : 1950 Requested By: Latasha Addison Order Number: [id number] Paola MD: FANTA MARIANO Measurements Intervals [place] Rate: 77 P: 11 MT: 158 QRS: 16 QRSD: 98 T: 123 QT: 360 QTc: 408 Interpretive Statements SINUS RHYTHM ST ELEVATION, CONSIDER INFERIOR INJURY [MARKED ST ELEVATION W/O NORMALLY INFLECTED T WAVE IN II/aVF] ACUTE SD INTERPRETATION BASED ON A DEFAULT AGE OF 40 YEARS Compared to ECG 07/19/2020 18:14:59 ST (T wave) deviation now present Myocardial infarct finding now present Sinus tachycardia no longer present Possible ischemia no longer present Possible ischemia no longer present T-wave abnormality no longer present Electronically Signed On 07-20-2020 18:15:04 TIN DIPPER by FANTA MARIANO [id number]
--- NOTE | 2020-07-19 21:15 | XRR_ITS ---
PROCEDURE INFORMATION: Exam: XR Left Tibia and Fibula Exam date and time: 07/19/2020 9:19 PM Age: 70 years old Clinical indication: Swelling, leg or foot; Additional info: Evalute for osteomyelitis TECHNIQUE: Imaging protocol: XR Left tibia and fibula. Views: 2 views. COMPARISON: No relevant prior studies available. FINDINGS: Bones/joints: No visible active or acute osseous pathology. Osteopenia/osteoporosis. No visible osteolytic or osteoblastic destructive process. Soft tissues: No visible soft tissue swelling, soft tissue emphysema, or radiopaque foreign body other than surgical sutures. XR/XR tibia fibula LT 2V [id number] IMPRESSION: Nonacute.
--- NOTE | 2020-07-19 21:27 | PC.PHAR ---
Vancomycin is dosed at 1250mg IVPB every 12 hours to produce a predicted trough level of 19.14 (population based pharmacokinetic analysis). A trough level has been ordered from the lab to be obtained before the fourth dose to confirm and adjust if needed. The Zosyn is dosed at 3.375gm IVPB every 8 hours on basis of creatinine clearance of 64.4. Each dose is to be infused over four hours per extended infusion protocol.
[2020-07-19] MEDS: enoxaparin 120 mg/0.8 mL Syringe SUBCUT (21:32)
[2020-07-19] MEDS: sodium chloride 0.9% 1,000 ML 100 ML IV (22:11)
[2020-07-19] MEDS: vancomycin 1,250 MG/250 ML PIGGYBACK 250 MG IV (22:16)
[2020-07-19 22:31] LABS: Troponin 5 2HR 108.2 ng/L (0-15); Troponin 5 2HR Delta 20.2 ABS# (0-10)
[2020-07-19] MEDS: piperacillin-tazobactam 3.375 GM in sodium chloride 0.9% (plus) 50 ML IV (23:27)
[2020-07-20] VITALS (95 sets, daily range): BP systolic 64–143; BP diastolic 41–88; PULSE 64–128; RESP 11–30; TEMP 36.4–38.2; O2SAT 83–100
--- NOTE | 2020-07-20 00:10 | PC.NURSE ---
At 2330 noted patient to have BP at 60/41 per monitor. Obtained manual blood pressure at that time and got 62/38. Patient extremely lethargic. BP has been high and low at times. Informed Dr Augustin. Orders received. Will move to ICU. Martin catheter placed. New IV initiated to left ac. Patient tolerated both well. Levophed delivered to patient's room by pharmacy. Not started at this time. current blood pressure 138/81. Patient was more awake but confused while martin placed and iv started. Patient is currently resting with eyes closed. Dr Augustin in room and noted patient blood pressure was improved but to continue to move to ICU for close monitoring due to instability of blood pressures.
[2020-07-20 00:35] LABS: ABG PCO2 34.5 mmHg (35-45); ABG PH Result 7.41 (7.35-7.45); Alveolar-Arterial Oxygen Gradi 1.6 mmHg (5-10); Arterial Blood Gas Hematocrit 22.9 % (42-52); Base Excess ABG -2.3 mmol/L (-2.0-2.0); Blood Gas Allen Test Pos; Blood Gas Sample Type Arterial; Carboxyhemoglobin 1.1 %THgb (0.4-20.1); HCO3 ABG 21.9 mmol/L (22-26); HGB O2 Sat 96.3 % (95-100); Ionized Calcium Level - ABG 1.2 mmol/L (1.1-1.4); Methemoglobin 1.3 % (0.4-1.5); Oxygen Saturation ABG 98.7; PO2 ABG 94.8 mmHg (80.0-100.0); Potassium Level - ABG 4.5 mmol/L (3.5-5.0); Total Hemoglobin 7.5 g/dL (14-18)
[2020-07-20 00:37] LABS: Blood Gas Operator Identificat JB; Blood Gas Sample Site Radial, right; Oxygen Device NC
--- NOTE | 2020-07-20 00:59 | ECG_ITS ---
[facility] Test Date: 2020-07-20 Pat Name: Ravindra Lam Department: Room: ICU10 Gender: Male Sample Case Porter: : 1950 Requested By: Latasha Addison Order Number: [id number] Reading MD: FANTA MARIANO Measurements Intervals [place] Rate: 89 P: 16 MN: 158 QRS: 19 QRSD: 96 T: 76 QT: 364 QTc: 445 Interpretive Statements SINUS RHYTHM NONSPECIFIC ST & T-WAVE ABNORMALITY Compared to ECG 07/19/2020 20:39:01 T-wave abnormality now present ST (T wave) deviation no longer present Myocardial infarct finding no longer present Electronically Signed On 07-20-2020 18:15:00 AUDIOVISUAL LIBRARIAN by FANTA MARIANO [id number]
--- NOTE | 2020-07-20 01:12 | PC.NURSE ---
Arrived to unit at this time. Pt awake slow to respond at first. Pt is oriented to place, person and month. Breathing is even and non-labored on 2L NC. Lung sounds diminished throughout, apical rhythm distant and regular. Pt is pink and warm with 3+ radial pulses. Unable to palpate bilateral pedal pulses, obtained pulses via doppler. Right leg 1+ pitting edema, left leg hot to touch with 2+ pitting and weepy edema. Cellulitis with ulcerations noted to left lower leg. Erythema and slough covered ulcers. Hardy draining clear pale yellow urine. Pt denies pain of any kind. EKG preformed on arrival to unit due to prior ECG changes. Pt sinus rhythm on bedside monitor. Fluids and zosyn hanging on arrival to unit.
--- NOTE | 2020-07-20 01:18 | PC.NURSE ---
Patient taken to ICU 10. Report called to Lorenza at 0025.
[2020-07-20 01:31] LABS: Basophils # 0.1 10^3/uL (0.0-0.1); Basophils % 0.5 %; Eosinophils # 0.3 10^3/uL (0.0-0.8); Eosinophils % 2.2 %; Hematocrit 24.7 % (42.0-52.0); Hemoglobin 7.5 g/dL (11.7-16.6); Lymphocytes # 2.1 10^3/uL (0.8-4.8); Lymphocytes % 13.6 %; Mean Corpuscular HGB Conc 30.4 g/dL (30.0-36.0); Mean Corpuscular Volume 98.8 fL (80-94); Mean Platelet Volume 10.5 fL (7.4-10.4); Monocytes # 1.7 10^3/uL (0.2-0.9); Neutrophils # 11.09 10^3/uL (1.8-7.7); Neutrophils % 71.4 %; Nucleated Red Blood Cells % 0 %; Platelet Count 276 10^3/cmm (130-400); Red Cell Distribution Width 13.2 % (12.1-15.1); White Blood Count 15.5 10^3/uL (4.0-10.0)
[2020-07-20 01:33] LABS: Alanine Aminotransferase 10 U/L (0-41); Albumin Level 2.7 g/dL (3.5-5.2); Alkaline Phosphatase 61 IU/L (40-130); Anion Gap 18.6 (5-19); Aspartate Amino Transferase 11 U/L (0-40); Blood Urea Nitrogen 65 mg/dL (8-23); Calcium 8.5 mg/dL (8.5-10.5); Carbon Dioxide 20 mmol/L (22-29); Chloride 100 mmol/L (98-107); Creatinine Clr Calc Pharmacy 50.7932; Globulin 3.4 g/dL (1.3-4.6); Glomerular Filtration Rate 37.5 mL/min (90-130); Glucose 97 mg/dL (65-115); Osmolality Calculated 297 mOsm/kg (285-295); Potassium 4.6 mmol/L (3.5-5.1); Sodium 134 mmol/L (136-145); Total Bilirubin 0.2 mg/dL (0.15-1.2); Total Protein 6.1 g/dL (6.6-8.7)
[2020-07-20 01:44] LABS: Troponin 5 6HR 135.4 ng/L (0-15); Troponin 5 6HR Delta 47.4 ng/L (0-12)
[2020-07-20 01:45] LABS: NT Pro B Type Natriuretic Pept 861 pg/mL (0-125)
--- NOTE | 2020-07-20 01:54 | PC.NURSE ---
[place] Non-invasive hemodyamics Basline results CI 2.6 SVI 31 TPRI 1806 PLR method used to assess fluid status. Change in SVI 42.6%. Pt is fluid responsive. Pt tolerated well.
[2020-07-20 04:15] LABS: Basophils # 0.1 10^3/uL (0.0-0.1); Basophils % 0.5 %; Eosinophils # 0.3 10^3/uL (0.0-0.8); Eosinophils % 2.4 %; Hematocrit 24.3 % (42.0-52.0); Hemoglobin 7.5 g/dL (11.7-16.6); Lymphocytes % 13.7 %; Mean Corpuscular HGB Conc 30.9 g/dL (30.0-36.0); Mean Corpuscular Hemoglobin 29.9 pg (28.0-34.0); Mean Corpuscular Volume 96.8 fL (80-94); Monocytes # 1.7 10^3/uL (0.2-0.9); Monocytes % 11.8 %; Neutrophils # 10.05 10^3/uL (1.8-7.7); Neutrophils % 70.1 %; Nucleated Red Blood Cells % 0 %; Platelet Count 308 10^3/cmm (130-400); Red Blood Count 2.51 10^6/uL (4.1-5.3); Red Cell Distribution Width 13.1 % (12.1-15.1); White Blood Count 14.3 10^3/uL (4.0-10.0)
[2020-07-20 04:34] LABS: INR 1.16 (0.8-1.2)
[2020-07-20 04:35] LABS: Partial Thromboplastin Time 48.8 SECONDS (23.9-36.7)
[2020-07-20 04:47] LABS: Procalcitonin 0.37 ng/mL (0-0.5)
[2020-07-20 05:02] LABS: Alanine Aminotransferase 10 U/L (0-41); Albumin Level 2.5 g/dL (3.5-5.2); Alkaline Phosphatase 58 IU/L (40-130); Anion Gap 18.3 (5-19); Aspartate Amino Transferase 10 U/L (0-40); Blood Urea Nitrogen 58 mg/dL (8-23); Calcium 8.6 mg/dL (8.5-10.5); Carbon Dioxide 19 mmol/L (22-29); Chloride 98 mmol/L (98-107); Creatinine Clr Calc Pharmacy 50.7932; Globulin 3.7 g/dL (1.3-4.6); Glomerular Filtration Rate 37.5 mL/min (90-130); Glucose 96 mg/dL (65-115); Osmolality Calculated 288 mOsm/kg (285-295); Potassium 4.3 mmol/L (3.5-5.1); Sodium 131 mmol/L (136-145); Total Bilirubin 0.3 mg/dL (0.15-1.2); Total Protein 6.2 g/dL (6.6-8.7); Uric Acid 9.1 mg/dL (3.4-7.0)
--- NOTE | 2020-07-20 05:19 | CTR_ITS ---
PROCEDURE INFORMATION: Exam: CT Abdomen And Pelvis Without Contrast Exam date and time: 07/20/2020 5:56 AM Age: 70 years old Clinical indication: Other: Hb drop, hypotension; Additional info: Evalute for aaa rupture TECHNIQUE: Imaging protocol: Computed tomography of the abdomen and pelvis without contrast. Radiation optimization: All CT scans at this facility use at least one of these dose optimization techniques: automated exposure control; mA and/or kV adjustment per patient size (includes targeted exams where dose is matched to clinical indication); or iterative reconstruction. COMPARISON: CT abdomen pelvis w con* [id number] 07/18/2020 10:49 PM RADIATION DOSE METRICS: Total DLP (mGy-cm): 1410.1 FINDINGS: Pleural space: There are small bilateral pleural effusions, right larger than left. Strandy and patchy opacities superimposed over the right pleural effusion likely representing atelectasis although pneumonia cannot be entirely excluded. Additionally, there is a thick walled cavitary mass present within the right lower lobe laterally measuring 3.3 x 3.1 cm. This appears stable compared with 07/18/2020. Liver: Normal. No mass. Gallbladder and bile ducts: Hyperdense material seen within the gallbladder lumen likely representing vicarious excretion contrast material from prior CT examination. Pancreas: Normal. No ductal dilation. Spleen: Normal. No splenomegaly. Adrenal glands: Normal. No mass. Kidneys and ureters: Normal. No hydronephrosis. Stomach and bowel: A fat attenuation mucosal kari is again seen within the stomach. Diverticula are present on the sigmoid colon. Appendix: The appendix is visualized and is normal in configuration. Intraperitoneal space: See Vasculature finding. Vasculature: There is an infrarenal abdominal aortic aneurysm present appearing stable compared with 07/18/2020. There is no evidence for dissection or extravasation. Lymph nodes: Unremarkable. No enlarged lymph nodes. Urinary bladder: Hardy catheter is present the bladder appears decompressed. Reproductive: Unremarkable as visualized. Bones/joints: Unremarkable. No acute fracture. Soft tissues: Unremarkable. CT/CT abdomen pelvis wo con [id number] IMPRESSION: There is no change in the CT appearance of the abdomen and pelvis compared with 07/18/2020. There is a stable infrarenal abdominal aortic aneurysm without evidence of dissection or extravasation. Radiation Dose CTDIVOL = (mGy): DLP = 1410.1 (mGy-cm)
--- NOTE | 2020-07-20 05:22 | CTR_ITS ---
PROCEDURE INFORMATION: Exam: CT Head Without Contrast Exam date and time: 07/20/2020 5:56 AM Age: 70 years old Clinical indication: Altered mental status/memory loss; Additional info: Change in mental status, evalute for CVA TECHNIQUE: Imaging protocol: Computed tomography of the head without contrast. Radiation optimization: All CT scans at this facility use at least one of these dose optimization techniques: automated exposure control; mA and/or kV adjustment per patient size (includes targeted exams where dose is matched to clinical indication); or iterative reconstruction. COMPARISON: CT head wo con* [id number] 07/18/2020 10:47 PM RADIATION DOSE METRICS: Total DLP (mGy-cm): 857.77 FINDINGS: Brain: There is mild diffuse cerebral atrophy. Patchy areas of hypoattenuation seen in the deep white matter of the cerebral hemispheres bilaterally compatible with deep white matter microvascular disease. 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 Punctate calcifications are seen at the apices of the basal ganglia bilaterally compatible with idiopathic basal ganglia mineralization. Cerebral ventricles: No ventriculomegaly. Bones/joints: Unremarkable. No acute fracture. Paranasal sinuses: Visualized sinuses are unremarkable. No fluid levels. Mastoid air cells: Visualized mastoid air cells are well aerated. Soft tissues: Unremarkable. CT/CT head wo con* [id number] IMPRESSION: There are no acute intracranial findings. Stable head CT compared with 07/18/2020. Radiation Dose CTDIVOL = (mGy): DLP = 857.77 (mGy-cm)
--- NOTE | 2020-07-20 05:22 | PM.MISC ---
Miscellaneous Note Purpose of Documentation: event note Note: At around midnight after being transferred to [facility] patient's BP was noted to drop to 60 systolic associated withe xtreme lethargy and change in mentation. patient was obtunded, only woke up to state his name but otherwise confused. Hr was 70 at the time. He was started on levophed infusion, currently at 10mcg and transferred to ICU stat labs incl CBC, CMP and Abg obtained rising tropinins and ekg changes earlier in the evening suggestive of NSTEMI per discussion with cardiology, may be type 2 OK from sepsis- abx broadened to zosyn/vanc and blood cx obtained Cbc with Hb drop to 7.5, again at 4 am noted to be at 7.5, one unit transfusion ordered to keep hb goal of 8 in cardiac patient and with ongoing hemodynamic compromise CT abdomen/pelvis ordred as large AAA was noted on CT yesetreday, with Hb and BP drop and full dose lovenox now on board for NSTEMI, would want to exclude dissection or rupture Ct head given fluctuating mental status
--- NOTE | 2020-07-20 06:27 | ECG_ITS ---
[facility] Test Date: 2020-07-20 Pat Name: Ravindra Lam Department: Room: ICU10 Gender: Male Silk Soaker: : 1950 Requested By: Nanda Mariano Order Number: [id number] Reading MD: NANDA MARIANO Measurements Intervals [place] Rate: 107 P: 60 RI: 184 QRS: 16 QRSD: 109 T: 137 QT: 325 QTc: 434 Interpretive Statements SINUS TACHYCARDIA WITH OCCASIONAL SUPRAVENTRICULAR PREMATURE COMPLEXES ANTEROLATERAL ST & T-WAVE ABNORMALITY suggestive of possible ischemia Compared to ECG 07/20/2020 01:02:30 Sinus rhythm no longer present T-wave abnormality still present Electronically Signed On 07-20-2020 18:13:49 TEAROOM HOST/HOSTESS by NANDA MARIANO [id number]
--- NOTE | 2020-07-20 07:07 | PC.NURSE ---
To CT scan at 0605 via bed and transport monitor. Back to unit at 0630. En route back to unit patient started to complain of chest pain rating 7/10. Complaining of jaw discomfort and arm numbness. Sinus tach noted on monitor rate of 116. On arrival back to unit EKG preformed showed sinus tach rate of 107 with pvc's. After few minutes patient reports chest pain easing up reports 4/10. Dr. Augustin notified via phone at 0645 of event, no orders for nitro due to BP issues and on levophed. PRN order for morphine received .Will continue to monitor.
[2020-07-20] MEDS: piperacillin-tazobactam 3.375 GM in sodium chloride 0.9% (plus) 50 ML IV ×2 (07:32→16:30)
--- NOTE | 2020-07-20 08:52 | USR_ITS ---
PROCEDURE INFORMATION: Exam: US Duplex Lower Extremity Veins, Bilateral Exam date and time: 07/20/2020 9:05 AM Age: 70 years old Clinical indication: Swelling (edema) of limb; Lower extremity, bilateral; Additional info: R/O dvt TECHNIQUE: Imaging protocol: Real-time duplex ultrasound of the extremities with 2-D cazares scale, color Doppler flow and spectral waveform analysis with image documentation. Complete exam focused on the bilateral lower extremity veins. COMPARISON: No relevant prior studies available. FINDINGS: Right deep veins: Deep venous thrombosis in the visualized right popliteal, peroneal, and posterior tibial veins. Right superficial veins: Saphenofemoral junction is patent without thrombus. Left deep veins: Deep venous thrombosis in the visualized left common femoral, femoral, popliteal, and peroneal veins. Left superficial veins: Saphenofemoral junction is patent without thrombus. Soft tissues: Subcutaneous edema. US/[place] [id number] IMPRESSION: Bilateral deep venous thrombosis as described above. The aforementioned findings initiated a critical results communication pathway. An addendum will be issued at the time of clincian notification.
[2020-07-20] MEDS: azithromycin 500 MG in sodium chloride 0.9% 250 ML 250 MG IV (09:12)
[2020-07-20] MEDS: pantoprazole 40 mg SDV IVP (09:16)
[2020-07-20] MEDS: atorvastatin 40 mg Tablet PO (09:19)
[2020-07-20] MEDS: aspirin 81 mg EC Tablet PO (09:19)
[2020-07-20] MEDS: magnesium oxide 400 mg tablet PO (09:19)
[2020-07-20] MEDS: sucralfate 1 gm Tablet PO ×2 (09:19→18:23)
[2020-07-20] MEDS: enoxaparin 120 mg/0.8 mL Syringe SUBCUT (09:19)
[2020-07-20] MEDS: sodium chloride 0.9% (100 ml) 100 ML ×2 (09:27→19:21)
[2020-07-20 09:47] LABS: Ferritin 712 ng/mL (30-400); Iron 33 ug/dL (59-158); Lactate (Lactic Acid level) 0.8 mmol/L (0.5-2.2); Percent Saturation 24.4 % (20-50); Total Iron Binding Capacity 135 mcg/dl; Unsaturated Iron Binding 102 ug/dL (112-347)
[2020-07-20] MEDS: sodium chloride 0.9% 1,000 ML 10 ML IV (10:55)
[2020-07-20] MEDS: vancomycin 1,250 MG/250 ML PIGGYBACK 250 MG IV (10:56)
--- NOTE | 2020-07-20 12:04 | NMR_ITS ---
PROCEDURE INFORMATION: Exam: RI Lung Ventilation and Perfusion Imaging Exam date and time: 07/20/2020 12:54 PM Age: 70 years old Clinical indication: Shortness of breath; Prior surgery; Surgery date: 6+ months; Surgery type: Cabg; Patient HX: SOB, bilateral extremity dvts TECHNIQUE: Imaging protocol: Nuclear pulmonary ventilation with aerosol or gas was performed followed by perfusion. Views: Ventilation acquired with multiple projections. Perfusion acquired with multiple projections. Radiopharmaceutical: 32.5 mCi DTPA Aersol (Tc-99m DTPA), Inhalation. 5.4 mCi Tc-99m MAA, IV. COMPARISON: CT chest w con* [id number] 07/19/2020 12:19 AM FINDINGS: Ventilation and perfusion: There are several matched ventilation and perfusion defects. Small right pleural effusion. No mismatched defects are seen. RI/RI pul vent and perfus* [id number] IMPRESSION: No evidence of pulmonary embolism.
--- NOTE | 2020-07-20 12:05 | PM.PN ---
Subjective Subjective: Interval history: This morning patient was examined, overnight patient developed hypotensive episodes, requiring transfer to ICU, received fluid boluses, antibiotic coverage broadened, is currently on minimal Levophed going at 4 mcg, on 2 L, alert oriented x3, blood pressures are in the 90s over 60s, he is answering all questions appropriately Patient tells me that he has not seen a physician in over 10 years, what brought him in was 2 complaints chest pain and abdominal pain He has had intermittent chest pain since he has been here, 1 episode when he finished his CT scan, currently chest pain-free, chest pain is substernal, nonradiating, associated with lightheadedness, some shortness of breath, Abdominal pain fairly nonspecific, more generalized, no nausea, no vomiting, no hematemesis, no hemoptysis, denies bloody or black stools Currently denying chest pain, shortness of breath, lightheadedness, dizziness, nausea, no vomiting Vitals/I&O/Wt Last Vital Signs Temp 100.2 F H 07/20/20 09:05 Pulse 82 07/20/20 12:00 Resp 22 H 07/20/20 12:00 BP 99/50 07/20/20 12:00 Pulse Ox 100 07/20/20 12:00 07/19/20 07/20/20 07/20/20 22:59 06:59 14:59 Intake Total 120 / 400 942.405 / 4681.643 9768.182 / 1142.182 Output Total 1550 / 1550 Balance 120 / 400 -607.595 / -992.877 3276.182 / 1142.182 Weight last 48 hrs Weight 133.9 kg Weight 125.6 kg Weight 122.47 kg Physical Exam Const: COMMON NORMALS: no acute distress GENERAL APPEARANCE: ill appearing NUTRITIONAL APPEARANCE: obese ORIENTATION/CONSCIOUSNESS: Yes awake, Yes oriented to person, Yes oriented to place and Yes oriented to time HENMT: COMMON NORMALS: normocephalic HEAD & SCALP: normocephalic Neck/C-Spine: COMMON NORMALS: no JVD Resp: COMMON NORMALS: normal respiratory effort, No retractions and No use of accessory muscles AUSCULTATION: diminished lung sounds Cardio: COMMON NORMALS: no JVD, regular rate, regular rhythm, S1 normal heart sound present and S2 normal heart sound present RATE: regular rate RHYTHM: regular rhythm HEART SOUNDS: S1 normal heart sound present and S2 normal heart sound present GI: COMMON NORMALS: Normal to inspection, nondistended, normoactive bowel sounds present, Soft to palpation, non-tender, No hepatosplenomegaly present, no masses and no bruits PALPATION: Yes Soft to palpation and Yes No hepatosplenomegaly present Extremity: COMMON NORMALS: capillary refill normal and no clubbing, cyanosis or edema NARRATIVE EXTREMITY EXAM: Left lower extremity, erythema, tenderness, swelling, 1+ pitting edema Neuro: SENSORIUM/ORIENTATION: Yes oriented to person, Yes oriented to place and Yes oriented to time Psych: COMMON NORMALS: mental status grossly normal Urinary Catheter Management^: Hardy: Cath Placed During This Visit: yes Reason for Continuing Indwelling Catheter: Accurate Measurement of Urinary Output in Critically Ill Patients Urinary Catheter Date of Insertion: 07/20/20 Urinary Catheter Time of Insertion: 00:05 Data : 07/20/20 04:03 07/20/20 04:03 Micro: Microbiology 07/20/20 06:30 Blood Culture - Preliminary Blood SPECIMEN COLLECTED 07/19/20 00:35 Blood Culture - Preliminary Blood SPECIMEN COLLECTED 07/19/20 07:35 MRSA Culture - Final Nose A&P Assessment and plan (1) Pneumonia: -Right posterior middle lobe pneumonia, with evidence of sepsis, septic shock -I went over CT scan with V RADS, radiologist believes that in fact patient has a right posterior middle lobe pneumonia, it does not look like a pseudomass, it does not look like a empyema, does not look like a lung abscess -But if patient does not clinically improve, might benefit from a biopsy -White blood cell count 14.3, creatinine 1.8, pro-Asim 0.37 Plan: -Admit to ICU -Continue broad-spectrum antibiotics vancomycin, Zosyn and azithromycin -Follow sputum cultures, blood cultures, urine cultures, urine bacterial antigens -Monitor respiratory status closely, inhaler therapy -We will consider possible biopsy, if patient does not clinically improve -Currently on minimal Levophed, going at 4 mcg, maintain MAP greater than 65 -Fluid boluses as required Status: Acute (2) DVT, bilateral lower limbs: -Right deep veins: Deep venous thrombosis in the visualized right popliteal, peroneal, and posterior tibial veins. Right superficial veins: Saphenofemoral junction is patent without thrombus. Left deep veins: Deep venous thrombosis in the visualized left common femoral, femoral, popliteal, and peroneal veins. Left superficial veins: Saphenofemoral junction is patent without thrombus. -We will order ventilation/perfusion scan to rule out pulmonary emboli -If patient continues to have evidence of bleeding, bloody or black stools, hemoglobin dropping, he will require an IVC filter placement Status: Acute (3) Shock: -Multifactorial -Related to septic shock, related to right posterior middle lobe pneumonia, left lower extremity cellulitis -Some component hemorrhagic, given hemoglobin 7.5, CT evidence of duodenal ulcer -Currently receiving fluids, 1 unit PRBC, on Levophed Status: Acute (4) GI bleed: -Hemoglobin 7.5 -Iron 33, ferritin 712, TIBC 135 -BUN 58 -CT of the abdomen shows: Fat attenuation mucosal mass seen within the stomach along the greater curvature, dimensions given above. Some soft tissue stranding and a soft tissue nidus is seen associated with the fatty mass. 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 2. Irregular bowel wall thickening of the proximal duodenum, possibly the sequela duodenal ulceration. 3. Diverticulosis of the descending and sigmoid colon -No complaints of bloody or black bowel movements this morning -We will receive 1 unit PRBC -Given DVTs, I am highly suspicious of a gastric malignancy and or duodenal ulcers -Inherently this will provide difficulty in terms of anticoagulation Plan: -Monitor hemoglobin closely, monitor INR -Switch to heparin, if hemoglobin drops or has bloody or black movements, will stop all anticoagulation, will have to place a IVC filter -Continue Protonix 40 IV twice daily, Carafate -We will possibly discuss with general surgery based on clinical progress Status: Acute (5) NSTEMI (non-ST elevated myocardial infarction): -Baseline troponin 88, 120-minute 108.2, 6-hour 135.4, delta of 47.4 -EKG early in the morning did show mild ST deviation, T wave inversions, inferior leads -EKG this morning shows no acute ST-T wave changes -Did have one episode of chest pain while being moved, no repeat episodes of chest pain -Is on aspirin, statin, beta-angela on hold -On therapeutic Lovenox, will switch to heparin drip, monitor hemoglobin closely -Echocardiogram ordered Status: Acute (6) Weakness: Progressively worsening to the point that he is not able to care for his activities of daily living Status: Acute (7) TIMBO (acute kidney injury): On diuretics and DOYLE inhibitor chronically, volume depleted Status: Acute (8) Acute hyponatremia: Currently feels secondary to volume but with pulmonary nodule have to keep in mind SIADH Status: Acute (9) Cellulitis: Distal extremities left greater than right Status: Acute Qualifiers: Site of cellulitis: extremity Site of cellulitis of extremity: lower extremity Laterality: left Qualified Code(s): L03.116 - Cellulitis of left lower limb (10) Lower limb ulcer: Left lower extremity Status: Acute Qualifiers: Laterality: left Non-pressure ulcer stage: unspecified non-pressure ulcer stage Qualified Code(s): L97.929 - Non-pressure chronic ulcer of unspecified part of left lower leg with unspecified severity (11) Pressure ulcer: Sacral area Status: Acute Qualifiers: Pressure injury location: sacral region Pressure injury stage: stage 2 Qualified Code(s): L89.152 - Pressure ulcer of sacral region, stage 2 (12) Pulmonary nodule: 3.3 x 3.5 cm right upper lobe noted on CT abs/pelvis; CT chest suggested this was a pseudomass Other CTs suggested that this was a cavitary mass Spoke to be vrads, seems more like a right posterior middle lobe pneumonia If patient clinically does not improve ultimately will require biopsy Status: Acute (13) 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 and, also noted was some thickening in the duodenum suggesting potential duodenal ulcer -But cannot rule out underlying gastric carcinoma and/or duodenal ulcer Status: Acute (14) CHF (congestive heart failure): Type unknown, echocardiogram ordered Status: Chronic Qualifiers: Heart failure type: unspecified Heart failure chronicity: chronic Qualified Code(s): I50.9 - Heart failure, unspecified (15) CAD (coronary artery disease): With history of previous bypass, has had a couple of episodes of chest pain today and had EKG concerning for ischemic changes, chest pain episode for which EKG was done resolved without focused intervention Status: Chronic Qualifiers: Coronary Disease-Associated Artery/Lesion type: unspecified vessel or lesion type [place] vs. transplanted heart: [place] heart Associated angina: with unspecified angina Qualified Code(s): I25.119 - Atherosclerotic heart disease of [place] coronary artery with unspecified angina pectoris (16) Osteoarthritis: Severe, has been all that he needs joint replacements, limited mobility Status: Chronic Qualifiers: Osteoarthritis location: multiple joints Osteoarthritis type: unspecified Qualified Code(s): M15.9 - Polyosteoarthritis, unspecified (17) Physical deconditioning: Related to above Status: Acute (18) Anxiety: This is a contributing factor to his request to leave AMA today. He does not like the environment because it is not his home and it is not familiar to him. Status: Chronic Additional A&P Information Moved to the ICU Added low-dose Xanax to see if it would help Hold Lasix hold Coreg Continue fluids Monitor renal function Continue antibiotics,wound care Monitor wounds for need for surgical intervention Serial cardiac enzymes Cardiology consultation PPI, watch for any GI bleeding PT eval ordered Lovenox for DVT prpophylaxis Supportive care otherwise Full code Attestations Medical Necessity Statement*: Patient requires hospitalization for pneumonia, multifactorial shock, DVTs, GI bleed, NSTEMI Coding Level of Care Code Acute Dna Analyst for [facility] Fwd Exam Comprehensive Diagnoses Pneumonia J18.9 DVT, bilateral lower limbs I82.403 Shock R57.9 GI bleed K92.2 NSTEMI (non-ST elevated myocardial infarction) I21.4 Weakness R53.1 TIMBO (acute kidney injury) N17.9 Acute hyponatremia E87.1 Cellulitis L03.116 Site of cellulitis: extremity Site of cellulitis of extremity: lower extremity Laterality: left Lower limb ulcer L97.929 Laterality: left Non-pressure ulcer stage: unspecified non-pressure ulcer stage Pressure ulcer L89.152 Pressure injury location: sacral region Pressure injury stage: stage 2 Pulmonary nodule R91.1 Mass of stomach K31.89 CHF (congestive heart failure) I50.9 Heart failure type: unspecified Heart failure chronicity: chronic CAD (coronary artery disease) I25.119 Coronary Disease-Associated Artery/Lesion type: unspecified vessel or lesion type [place] vs. transplanted heart: [place] heart Associated angina: with unspecified angina Osteoarthritis M15.9 Osteoarthritis location: multiple joints Osteoarthritis type: unspecified Physical deconditioning R53.81 Anxiety F41.9
--- NOTE | 2020-07-20 15:00 | PC.NURSE ---
Pt back to ICu from [facility]. Pt stated he had a BM. Massive amount of melena noted. Collected and sent to lab. Dr Beasley called and notified of melena. Pericare provided. stat CBC and coags collected.
--- NOTE | 2020-07-20 15:03 | P.CONIM_ITS ---
Providers/Reason For Consult Consulting Physican/Specialty*: Anupam Waddell MD Reason for Consult*: GI BLEED Attending Physician: Jim Pringle MD Primary Care Provider: Nellie Joe NP History of Present Illness History of Present Illness Chief complaint: unobtainable HPI: Mr Ravindra Lam is a 70 year old male with multiple medical comorbidities patient was admitted to the hospitalist service c/o abdominal discomfort and distension over the past few days. also intermittently reports chest disomfort as a band like pain below the ribs radiating to mid chest was found to be anemic, and started shifting his H&H that requiring further resuscitation, initially I was contacted by the hospitalist service for potential EGD due to CT scan findings that showed lesion in the stomach associated with hematochezia.Patient continued to be stable yet upon evaluating the patient in the ICU his blood pressure started to drift down and that the status post nuclear medicine study as the patient had large amount of hematochezia preceded his unstable vital signs. I was able to see the patient in the ICU and participate in the resuscitation and placed an emergency right subclavian central line. Hospitalist service was involved in resuscitation as well and started the patient on pressors. Around the same time family came bedside included the spouse and patient's son, and I was able to explain for them the overall clinical picture According to the spouse when I asked her patient never had a colonoscopy before or upper endoscopy. CT can findings: COMPARISON: CT abdomen pelvis w con* [id number] 07/18/2020 10:49 PM RADIATION DOSE METRICS: Total DLP (mGy-cm): 1410.1 FINDINGS: Pleural space: There are small bilateral pleural effusions, right larger than left. Strandy and patchy opacities superimposed over the right pleural effusion likely representing atelectasis although pneumonia cannot be entirely excluded. Additionally, there is a thick walled cavitary mass present within the right lower lobe laterally measuring 3.3 x 3.1 cm. This appears stable compared with 07/18/2020. Liver: Normal. No mass. Gallbladder and bile ducts: Hyperdense material seen within the gallbladder lumen likely representing vicarious excretion contrast material from prior CT examination. Pancreas: Normal. No ductal dilation. Spleen: Normal. No splenomegaly. Adrenal glands: Normal. No mass. Kidneys and ureters: Normal. No hydronephrosis. Stomach and bowel: A fat attenuation mucosal kari is again seen within the stomach. Diverticula are present on the sigmoid colon. Appendix: The appendix is visualized and is normal in configuration. Intraperitoneal space: See Vasculature finding. Vasculature: There is an infrarenal abdominal aortic aneurysm present appearing stable compared with 07/18/2020. There is no evidence for dissection or extravasation. Lymph nodes: Unremarkable. No enlarged lymph nodes. Urinary bladder: Hardy catheter is present the bladder appears decompressed. Reproductive: Unremarkable as visualized. Bones/joints: Unremarkable. No acute fracture. Soft tissues: Unremarkable. CT/CT abdomen pelvis wo con [id number] IMPRESSION: There is no change in the CT appearance of the abdomen and pelvis compared with 07/18/2020. There is a stable infrarenal abdominal aortic aneurysm without evidence of dissection or extravasation. Venous duplex Right deep veins: Deep venous thrombosis in the visualized right popliteal, peroneal, and posterior tibial veins. Right superficial veins: Saphenofemoral junction is patent without thrombus. Left deep veins: Deep venous thrombosis in the visualized left common femoral, femoral, popliteal, and peroneal veins. Left superficial veins: Saphenofemoral junction is patent without thrombus. Soft tissues: Subcutaneous edema. Patient was supposed to get an IVC filter today by cardiac services Pulmonary perfusion images FINDINGS: Ventilation and perfusion: There are several matched ventilation and perfusion defects. Small right pleural effusion. No mismatched defects are seen. NM/NM pul vent and perfus* [id number] IMPRESSION: No evidence of pulmonary embolism. Post right subclavian central line placement chest x-ray: COMPARISON: CT chest w con* [id number] 07/19/2020 12:19 AM FINDINGS: Tubes, catheters and devices: Right subclavian approach central venous catheter tip terminates in the right atrium. Lungs: There are patchy opacities at the right lung base. Pleural space: Small right pleural effusion. Heart/Mediastinum: Heart size not optimally evaluated with a single AP view of the chest. Bones/joints: There are posterior sternotomy changes and postoperative changes overlying the mediastinum. XR/XR chest 1V portable [id number] IMPRESSION: 1. Right subclavian approach central venous catheter tip terminates in the right atrium. 2. Small right pleural effusion. 3. There are patchy opacities at the right lung base. Review of Systems General: Reports: 10 or more systems reviewed and unremarkable except in HPI and below Meds/Allergies Home Medications and Allergies Home Medications Medication Instructions Recorded Confirmed Last Taken Type atorvastatin 40 mg PO DAILY 07/19/20 07/19/20 Unknown History baclofen 10 mg PO TID PRN 07/19/20 07/19/20 Unknown History carvedilol 12.5 mg PO Q12H 07/19/20 07/19/20 Unknown History furosemide 20 mg PO DAILY 07/19/20 07/19/20 Unknown History gabapentin 400 mg PO TID 07/19/20 07/19/20 Unknown History hydrocodone-acetaminophen 1 tab PO BID PRN 07/19/20 07/19/20 Unknown History lisinopril 40 mg PO DAILY 07/19/20 07/19/20 Unknown History magnesium oxide 400 mg PO DAILY 07/19/20 07/19/20 Unknown History meloxicam 15 mg PO DAILY 07/19/20 07/19/20 Unknown History nitroglycerin 0.4 mg SUBLINGUAL Q5MIN PRN 07/19/20 07/19/20 Unknown History Allergies Allergy/AdvReac Type Severity Reaction Status Date / Time No Known Allergies Allergy Verified 07/20/20 16:29 Current Medications Current Medications Generic Name Dose Route Start Last Admin Trade Name Freq PRN Reason Stop Dose Admin Hydrocodone Bitart/Acetaminophen 1 tab 07/19/20 05:41 07/19/20 10:11 Hydrocodone-Acetaminophen 5-325 Mg Tablet PO 1 tab BID PRN Administration Pain Aspirin 81 mg 07/19/20 09:00 07/20/20 09:19 Aspirin 81 Mg Ec Tablet PO 81 mg DAILY MANUELA Administration Atorvastatin Calcium 40 mg 07/19/20 09:00 07/20/20 09:19 Atorvastatin 40 Mg Tablet PO 40 mg DAILY MANUELA Administration Carvedilol 3.125 mg 07/19/20 18:00 07/19/20 18:10 Carvedilol 3.125 Mg Tablet PO 3.125 mg Q12H MANUELA Administration Gabapentin 400 mg 07/19/20 09:00 07/19/20 21:03 Gabapentin 400 Mg Capsule PO Not Given TID MANUELA Sodium Chloride 1,000 mls @ 100 mls/hr 07/19/20 21:15 07/20/20 10:55 Sodium Chloride 0.9% IV 10 mls/hr .Q10H MANUELA Administration Piperacillin Sod/Tazobactam 50 mls @ 12.5 mls/hr 07/19/20 23:00 07/20/20 07:32 Sod 3.375 gm/ Sodium Chloride IV 12.5 mls/hr Q8H MANUELA Administration Protocol As Directed Vancomycin/PEG/NADA/Lysine/Water 1,250 mg in 250 mls @ 250 mls/hr 07/19/20 22:00 07/20/20 10:56 Vancocin IV 250 mls/hr Q12H MANUELA Administration Norepinephrine Bitartrate 4 mg 254 mls @ 0 mls/hr 07/19/20 23:45 07/20/20 10:57 / Dextrose IV 4 mcg/min .Q0M MANUELA 15.2 mls/hr Titration Protocol Per Protocol Azithromycin 500 mg/ Sodium 250 mls @ 250 mls/hr 07/20/20 08:00 07/20/20 10:20 Chloride IV Infused Q24H MANUELA Infusion Protocol Magnesium Oxide 400 mg 07/19/20 09:00 07/20/20 09:19 Magnesium Oxide 400 Mg Tablet PO 400 mg DAILY MANUELA Administration Pantoprazole Sodium 40 mg 07/20/20 09:00 07/20/20 09:16 Pantoprazole 40 Mg Sdv IVP 40 mg Q12H MANUELA Administration Sucralfate 1 gm 07/20/20 09:00 07/20/20 09:19 Sucralfate 1 Gm Tablet PO 1 gm BIDAC MANUELA Administration PFSH Acute PFSH: Medical History Aneurysm of infrarenal abdominal aorta 4.4cm AP, 5.1 cm craniocaudal on 07/19/2020 CAD (coronary artery disease) CHF (congestive heart failure) Hyperlipidemia Surgical History Hx of CABG Social History Smoking and tobacco status: unknown if ever smoked Vitals/I&O/Wt Last Vital Signs Temp 99.7 F H 07/20/20 11:30 Pulse 82 07/20/20 12:00 Resp 22 H 07/20/20 12:00 BP 99/50 07/20/20 12:00 Pulse Ox 100 07/20/20 12:00 07/20/20 07/20/20 07/20/20 06:59 14:59 22:59 Intake Total 942.405 / 2984.048 9368.182 / 1177.182 Output Total 1550 / 1550 1750 / 1750 Balance -607.595 / -207.595 -572.818 / -572.818 Weight last 48 hrs Weight 295 lb 3.2 oz Weight 276 lb 14.4 oz Weight 270 lb Physical Exam Narrative: EXAM NARRATIVE: Patient is conscious, confused 55/42 BMI 42.4 Head and neck examination PERRLA no masses no cervical lymphadenopathy no jaundice Cardiac examination audible S1-S2 no murmurs no gallops no arrhythmias Chest is clear bilateral,abscence of Rhonchi or wheezes,no surgical emphysema Abdomen nontender nondistended soft no organomegaly guarding or rigidity/no signs of peritonitis Umbilical hernia chronically incarcerated Profound hematochezia Urinary Catheter Management^: Hardy: Cath Placed During This Visit: yes Reason for Continuing Indwelling Catheter: Accurate Measurement of Urinary Output in Critically Ill Patients Urinary Catheter Date of Insertion: 07/20/20 Urinary Catheter Time of Insertion: 00:05 Data Micro: Micro: Microbiology 07/20/20 06:30 Blood Culture - Pr eliminary Blood SPECIMEN [facility] 07/19/20 00:35 Blood Culture - Pr eliminary Blood SPECIMEN [facility] 07/19/20 07:35 MRSA Culture - Fin al Nose A&P Assessment and plan (1) GI bleed: Emergency right subclavian central line placement bedside From surgical standpoint of view patient is unstable for any invasive procedure, and after history taking which was mostly obtained from the hospitalist service, physical examination and reviewing the chart and images with my personal interpretation, in the absence of hematemesis and the overall radiological evaluation of the mass in the stomach less likely the bleeding is coming from the stomach mass and most likely the bleeding is originating from one of the diverticula in sigmoid colon. Patient responding to resuscitation.After further stabilization patient will require an EGD and colonoscopy yet in the presence of unstable picture resuscitation including but not limited to blood transfusion and continuous monitoring in the ICU would be very appropriate at this point. Also giving the fact of bilateral DVTs patient was originally scheduled by cardiac services to get an IVC filter this evening, which make the patient in a higher risk of any invasive procedure without obtaining an IVC filter. Placement of NG T to decompress the stomach and evaluate for potential blood in stomach if any PPI therapy Repeated physical exam Transfusion of blood and blood products per protocol and hospitalist service Strict I's and O's Certainly angioembolization would be a potential requirement if the bleeding source is not being identified or stopped The spouse and patient's son were thoroughly updated with the overall clinical picture and potential outcomes and they do understand that the patient may be in need to be transferred to higher level of care. Assurance and education All questions have been answered and all concerns have been addressed to patient's family satisfaction. Status: Acute Consult Attestations Medical Necessity Statement: Ongoing inpatient hospitalization and critical care in the ICU Time Spent in Patient Care: Greater than 35 minutes (>than 50% of time spent in counselling and/or direct pt care on unit) . Procedures Central Line Placement^ Right SC: Time out performed: Yes Patient placed on monitor/pulse ox: Yes MD prep: mask, gown and gloves Central line prep: Chlorhexidine scrub Ultrasound used for placement: No Central line lumen inserted: triple (7 [place]) Post procedure: sutured in place, good blood return, all ports aspirated, flushed, capped and sterile dressing applied Post procedure x-ray: tip of catheter in good position and no pneumothorax seen Patient tolerated procedure: well Complications: none Coding Level of Care Code Acute Flight Radio Officer for [facility] Diagnoses GI bleed K92.2
[2020-07-20 15:13] LABS: Basophils # 0.1 10^3/uL (0.0-0.1); Basophils % 0.6 %; Eosinophils # 0.4 10^3/uL (0.0-0.8); Eosinophils % 2.4 %; Hematocrit 21.7 % (42.0-52.0); Hemoglobin 6.8 g/dL (11.7-16.6); Lymphocytes # 1.6 10^3/uL (0.8-4.8); Lymphocytes % 10.7 %; Mean Corpuscular HGB Conc 31.3 g/dL (30.0-36.0); Mean Corpuscular Hemoglobin 30.2 pg (28.0-34.0); Mean Corpuscular Volume 96.4 fL (80-94); Mean Platelet Volume 9.9 fL (7.4-10.4); Monocytes # 1.5 10^3/uL (0.2-0.9); Monocytes % 9.7 %; Neutrophils # 11.28 10^3/uL (1.8-7.7); Neutrophils % 74.7 %; Nucleated Red Blood Cells % 0 %; Platelet Count 298 10^3/cmm (130-400); Red Blood Count 2.25 10^6/uL (4.1-5.3); Red Cell Distribution Width 13.6 % (12.1-15.1); White Blood Count 15.1 10^3/uL (4.0-10.0)
[2020-07-20 15:30] LABS: INR 1.28 (0.8-1.2)
--- NOTE | 2020-07-20 15:39 | P.PN_ITS ---
Subjective Subjective: Interval history: Patient was moved to the unit last night due to persistent hypotension given IV fluid found to have low hemoglobin suspicious for GI bleed. Patient was given packed red blood cell and started on Levophed. Now he is stable blood pressure device he was also noted to have DVT on both legs left side up to common femoral right side in the popliteal. This morning he has been GI bleed hemoglobin was dropped down to 7.0 Vitals/I&O/Wt Last Vital Signs Temp 99.7 F H 07/20/20 11:30 Pulse 82 07/20/20 12:00 Resp 22 H 07/20/20 12:00 BP 99/50 07/20/20 12:00 Pulse Ox 100 07/20/20 12:00 07/20/20 07/20/20 07/20/20 06:59 14:59 22:59 Intake Total 942.405 / 3681.033 3421.182 / 1177.182 Output Total 1550 / 1550 1750 / 1750 Balance -607.595 / -207.595 -572.818 / -572.818 Weight last 48 hrs Weight 295 lb 3.2 oz Weight 276 lb 14.4 oz Weight 270 lb Physical Exam Narrative: EXAM NARRATIVE: GENERAL: Patient is lethargic disoriented and confused opens his eyes occasionally respond to command and try to answer question. He told me he is not any chest pain. NECK: No jugular vein distension. HEENT: No cyanosis. No icterus. No pallor. HEART: Regular S1 and S2. No murmur, rub or gallop. LUNGS: Clear to auscultate bilaterally. ABDOMEN: Mildly distended but nontender no rebound CENTRAL NERVOUS SYSTEM: Grossly nonfocal. EXTREMITIES: Lower extremities with 1+ edema bilaterally. Left leg cellulitis Urinary Catheter Management^: Hardy: Cath Placed During This Visit: yes Reason for Continuing Indwelling Catheter: Accurate Measurement of Urinary Output in Critically Ill Patients Urinary Catheter Date of Insertion: 07/20/20 Urinary Catheter Time of Insertion: 00:05 Data : 07/20/20 15:05 07/20/20 04:03 Micro: Microbiology 07/20/20 06:30 Blood Culture - Preliminary Blood SPECIMEN COLLECTED 07/19/20 00:35 Blood Culture - Preliminary Blood SPECIMEN COLLECTED 07/19/20 07:35 MRSA Culture - Final Nose A&P Assessment and plan (1) Sepsis: Continue IV antibiotics broad-spectrum as per ID recommendation. Status: Acute (2) CAD (coronary artery disease): Stable. EKG has stabilized with mild ST depression in anterolateral continue to manage medically due to GI bleed hypotension sepsis at this point we will manage conservatively. Before discharge we may will ask for stress test Status: Chronic Qualifiers: Coronary Disease-Associated Artery/Lesion type: unspecified vessel or lesion type [place] vs. transplanted heart: [place] heart Associated angina: with unspecified angina Qualified Code(s): I25.119 - Atherosclerotic heart disease of [place] coronary artery with unspecified angina pectoris (3) Abnormal EKG: Due to demand ischemia. Now improved and better patient denies any chest pain. Status: Acute (4) CHF (congestive heart failure): Stable and compensated. Status: Chronic Qualifiers: Heart failure type: unspecified Heart failure chronicity: chronic Qualified Code(s): I50.9 - Heart failure, unspecified (5) Hypotension: Improved on pressor and after transfusion. Status: Acute Qualifiers: Hypotension type: hypotension due to drug Qualified Code(s): I95.2 - Hypotension due to drugs (6) TIMBO (acute kidney injury): Most likely secondary to hypotension GI bleed. Hopefully it will improve after improvement of the blood pressure and transfusion. Status: Acute (7) Cellulitis: Antibiotics as per medicine. Status: Acute Qualifiers: Site of cellulitis: extremity Site of cellulitis of extremity: lower extremity Laterality: left Qualified Code(s): L03.116 - Cellulitis of left lower limb (8) Dvt femoral (deep venous thrombosis): Patient has DVT in the left side common femoral and right side popliteal which is new and active. Patient has GI bleed because of that he obtained transfusion and cannot get anticoagulation. Medicine and surgery recommended IVC filter and I agree. We have discussed with the patient and the family all risk benefit and alternative for the procedure patient understand the risk of IVC filter being clogged leading to lower extremity edema, he understand the risk of laceration of IVC during procedure he understand the risk of pulmonary embolism. He would like to proceed with it. I will place IVC filter today hopefully once bleeding resolves we may will take it out within the next 2 to 3 months. Status: Acute (9) GI bleed: Status post transfusion. EGD tomorrow morning with Dr. Waddell. Continue Protonix as per medicine. Status: Acute Attestations Medical Necessity Statement*: Patient require continuation hospitalization for above defined care. Coding Level of Care Code Established Pt Acute Neurological Surgeon for Laurieg Gilda Patient Type Established History Comprehensive Exam Comprehensive Medical Decision Making High Complexity Diagnoses Sepsis A41.9 CAD (coronary artery disease) I25.119 Coronary Disease-Associated Artery/Lesion type: unspecified vessel or lesion type [place] vs. transplanted heart: [place] heart Associated angina: with unspecified angina Abnormal EKG R94.31 CHF (congestive heart failure) I50.9 Heart failure type: unspecified Heart failure chronicity: chronic Hypotension I95.2 Hypotension type: hypotension due to drug TIMBO (acute kidney injury) N17.9 Cellulitis L03.116 Site of cellulitis: extremity Site of cellulitis of extremity: lower extremity Laterality: left Dvt femoral (deep venous thrombosis) I82.419 GI bleed K92.2
--- NOTE | 2020-07-20 16:19 | PC.PT ---
PT note; Dr. Lawrence recommends hold PT evaluation ?2 days, due to bilateral DVTs are a new finding
[2020-07-20] MEDS: sodium chloride 0.9% (100 ml) 100 ML 999 ML ×2 (16:32→16:33)
[2020-07-20] MEDS: sodium chloride 0.9% 1,000 ML 50 ML IV (16:32)
--- NOTE | 2020-07-20 16:33 | XRR_ITS ---
PROCEDURE INFORMATION: Exam: XR Chest, 1 View Exam date and time: 07/20/2020 4:33 PM Age: 70 years old Clinical indication: Other vascular access device placement or adjustment; Central line, non-tunnelled; Prior surgery; Additional info: Central lineplacement TECHNIQUE: Imaging protocol: XR of the chest Views: 1 view. COMPARISON: CT chest w con* [id number] 07/19/2020 12:19 AM FINDINGS: Tubes, catheters and devices: Right subclavian approach central venous catheter tip terminates in the right atrium. Lungs: There are patchy opacities at the right lung base. Pleural space: Small right pleural effusion. Heart/Mediastinum: Heart size not optimally evaluated with a single AP view of the chest. Bones/joints: There are posterior sternotomy changes and postoperative changes overlying the mediastinum. XR/XR chest 1V portable [id number] IMPRESSION: 1. Right subclavian approach central venous catheter tip terminates in the right atrium. 2. Small right pleural effusion. 3. There are patchy opacities at the right lung base.
--- NOTE | 2020-07-20 17:00 | PC.NURSE ---
After first maroon BM, within the hour pt had three more copious maroon stools. Pt turned deathly pale, very lethargic, not making sense talking, and his knees mottled. Pt stated he was feeling anxious. Pt placed supine. Dr Tay at bedside to do consult. Pt became hypotensive, O2 sats dropped to 85%. Oxygen increased to 4lpm. Pt placed in [place] position. Pt then had another maroon stool. IV fluid rate increased to 999ml/hr. Levophed rate increased to 12mcg/min from 4 mcg/min. Dr Tay emergently placed a CVL. in right subclavian. B/P drops further, Levophed increased to 17mcg/min. Pt stated he was going to leave us. Dr Pringle and RT now at bedside. Dr Pringle said to increase the levophed to 20mcg/min. Family notified of dire situation by Dr Lala.Unit of PRBC started. Dr Pringle stated to increase Levophed to 25mcg/min. Second unit of PRBS started infusing thorugh pressure bag. Family in at bedside. Vassopressin gtt started. After about an hour pt started to become more coherent and skin getting color back. Family remained at bedside. Dr Pringle and Dr Tay frequently updating family. SBP over 100. Levophed at 25mcg/min and Vasopressin at 0.04unit/hour.
[2020-07-20] MEDS: phytonadione (ADULT) 10 mg/mL Ampule 1 mL SUBCUT (17:06)
[2020-07-20] MEDS: sodium chloride 0.9% 1,000 ML 100 ML IV (19:30)
--- NOTE | 2020-07-20 19:30 | PC.NURSE ---
Shift summary: Pt resting with eyes closed. Pt remains alert and oriented. Pt rested in bed and watched TV most of the morning. US showed DVTs bilat legs. V/Q scan ordered and completed. While at V/Q scan pt stated he had pooped, upon arrival back to ICU noted that it was a copious amount of maroon stool. He had several more bouts of maroon stool, his knees mottled, his O2sats decreased and his B/P decreased significantly. CVL placement done emergently. He ws maxed out on Levophed gtt. Started on Vassopressin gtt. He has recieved 3 units of PRBC, 4th infusing right now. He has received 1 unit of FFP. Vit K administered. Urine output 2300ml of pale yellow urine. His VSS are improving, Levophed decreased some now. See MAR. Family allowed in due to extremely critical condition.
--- NOTE | 2020-07-20 20:44 | USCV_ITS ---
Ravindra Lam Age: 70 Gender: M : 1950 Exam Date: 07/20/2020 07:12 Ordering Phys: Latasha Addison MD Technologist: Radha Sosa Exam Location: [facility] – [place] Indication: CAD, CHF, ABNORMAL EKG BP: 109 / 58 HR: 85 Rhythm: Sinus Technical Quality: Technically difficult study MEASUREMENTS (Male / Female) Normal Values 2D ECHO LV Diastolic Diameter PLAX 3.9 cm 4.2 - 5.9 / 3.9 - 5.3 cm LV Systolic Diameter PLAX 3.0 cm LV Chamber Size 3.0 cm IVS Diastolic Thickness 1.6 cm 0.6 - 1.0 / 0.6 - 0.9 cm IVS Systolic Thickness 0.9 cm LVPW Diastolic Thickness 1.3 cm 0.6 - 1.0 / 0.6 - 0.9 cm LVPW Systolic Thickness 1.6 cm RV Chamber Size 3.6 cm LVOT Diameter 2.0 cm LV Ejection Fraction 2D Teich 49.0 % LA Diameter 4.2 cm LA Width 2.6 cm LA Height 6.0 cm RA Width 2.2 cm RA Height 5.7 cm Aorta at Sinotubular Diameter 2.7 cm M-MODE LV Diastolic Diameter MM 4.9 cm 4.2 - 5.9 / 3.9 - 5.3 cm LV Systolic Diameter MM 3.8 cm LV Ejection Fraction MM Teich 47.2 % IVS Diastolic Thickness MM 1.8 cm 0.6 - 1.0 / 0.6 - 0.9 cm IVS Systolic Thickness MM 1.9 cm LVPW Diastolic Thickness MM 1.4 cm 0.6 - 1.0 / 0.6 - 0.9 cm LVPW Systolic Thickness MM 1.6 cm RV Diastolic Diameter MM 1.8 cm Aortic Annulus Diameter 3.7 cm LA Ao Ratio MM 1.2 MV E Point Septal Separation 0.6 cm DOPPLER AV Peak Velocity 159.7 cm/s LVOT Peak Velocity 119.0 cm/s AV Area Cont Eq vti 2.6 cm squared AV Area Cont Eq pk 2.4 cm squared MV Area PHT 2.6 cm squared Mitral E to A Ratio 0.8 MV E' Velocity 41.0 cm/s Mitral E to MV E' Ratio 7.3 Mitral E to LV E' Lateral Ratio 6.3 Mitral E to LV E' Septal Ratio 8.7 TV Peak E Velocity 83.0 cm/s Right Atrial Pressure 3.0 mmHg PV Peak Velocity 104.0 cm/s RV Acceleration Time 0.1 s RV Ejection Time 0.2 s RV AcT/ET 0.4 FINDINGS Left Ventricle Normal left ventricular cavity size. Hyperdynamic left ventricular systolic function.left ventricular ejection fraction is estimated at 70 %. Grade I/IV diastolic dysfunction (abnormal relaxation filling pattern), normal to mildly elevated filling pressures. Right Ventricle The right ventricle is normal in size and function. RVSP could not be calculated due to incomplete tricuspid regurgitation velocity profile. Right Atrium The right atrium is normal in size. Left Atrium The left atrium is normal in size. Mitral Valve Structurally normal mitral valve without significant stenosis or prolapse. There is no mitral regurgitation. Aortic Valve Structurally normal aortic valve without significant sclerosis or stenosis. There is no aortic regurgitation. Tricuspid Valve Structurally normal tricuspid valve without significant stenosis or regurgitation. Pulmonic Valve Structurally normal pulmonic valve without significant stenosis. There is no pulmonic regurgitation. Pericardium Normal pericardium without effusion. Aorta Normal ascending aorta dimension. CONCLUSIONS 1-Normal left ventricular cavity size. Hyperdynamic left ventricular systolic function.left ventricular ejection fraction is estimated at 70 %. Grade I/IV diastolic dysfunction (abnormal relaxation filling pattern), normal to mildly elevated filling pressures. 2-There is no pericardial effusion. 3-No significant valve abnormalities. 4-Right atrial pressure is around 0 mm of mercury. Patient appears to be volume depleted. 5-There are no prior echocardiogram studies to compare. Nanda Oneal MD (Electronically Signed) Final Date: 20 July 2020 19:36 S
--- NOTE | 2020-07-20 21:30 | PC.NURSE ---
Bed Assignment Nico Bullock, medication coordinator at [facility] called at this time. Assigned neurotrauma bed 26. Receiving physician Dr. Oleary. Floor # for report [phone]
--- NOTE | 2020-07-20 21:30 | PC.NURSE ---
Report Called to Jacob Del Valle RN at this time.
[2020-07-20] MEDS: LORazepam 2 mg/mL INJ 1 mL 1 MG IVP (22:01)
--- NOTE | 2020-07-20 22:45 | PC.NURSE ---
Air evac lifeteam arrived to unit to facility at this time. Pt left unit on 14mcg/min levophed drip Vasopression at 0.05unit/min and IVF infusing at 100ml/hr. Ativan effective for anxiety of flying, pt is alert, cooperative and confused since administration of ativan. Pt started to have large maroon bm with blood clots. 5th unit of PRBC's spiked and hung for transfer at this time. [facility] notified of transfer and bed assignment at this time.
--- NOTE | 2020-07-21 13:58 | P.TS_ITS ---
Transfer Summary Providers Date of Admission: 07/19/20 00:12 Date of Discharge: 07/21/20 Attending Provider at Admission: Yu Augustin MD Attending Provider at Transfer: Jim Pringle MD Primary Care Provider: Nellie Joe NP Anticipated Date of Transfer: Anticipated date of transfer: 07/21/20 Receiving Facility & Provider: Receiving Provider: [] Receiving facility: [] Diagnoses at Discharge Discharge Diagnosis (1) GI bleed: Status: Acute Reason for Visit Reason for Visit: left side numbness/abd swelling Hospital Course Hospital Course This is a 70-year-old male, with a past medical history of CAD status post CABG and stenting 10 years ago, hypertension, hyperlipidemia, osteoarthritis who presents to [facility] due to chest pain abdominal pain Patient was admitted to [facility], for abdominal pain, fairly initially nonspecific, CT scan of the abdomen showed a fat attenuation mucosal mass along the greater curvature, some soft tissue stranding and soft tissue nidus is seen associated with a fatty mass; in addition CT scan showed irregular bowel thickening of the proximal duodenum, possible duodenal ulceration, diverticulosis. On admission patient was hemodynamically stable, hemoglobin on admission was 9.8, no bloody or black stools. However through the patient's hospital course, his hemoglobin did decrease to 7.5, had hypotensive episodes requiring ICU admission. On admission patient was placed on Lovenox for NSTEMI, which was subsequently stopped on 07/20/2020 when patient's hemoglobin was 7.5, he received 1 unit PRBC. On the evening of 07/20/2020, patient developed significant episodes of bloody stools with clots, roughly 5 units of blood loss, GI bleed with hemorrhagic shock, required an urgent right subclavian central line placement, 4 units of blood, 2 units of FFP, fluid boluses, Levophed, vasopressin. After discussion with patient and family, there was concerns for GI bleed and hemorrhagic shock secondary to gastric malignancy and or duodenal ulcer and or diverticular bleed. Patient was stabilized, had received 4 units of blood, 2 units FFP, Protonix drip, on 20 of Levophed, 0.4 vasopressin, blood pressures were 120s over 80s, patient alert oriented x3, answering all questions appropriately. However patient continued to have bloody stools, patient at this point in my mind required an urgent angiographic embolization procedure that could not be performed at [facility]. After discussion with patient and his family about the risks and benefits of transport, there is significant risks associated with transport and transfer, they voiced understanding, all questions answered, agreed to proceed to transport to [facility]. 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 Patient on admission also was found to have nstemi, baseline troponin 88, 120- minute 108.2, delta 20.2, 6-hour 135.4, 6-hour delta 47.[address] wave changes and T wave inversions, did have a couple of chest pain episodes while inpatient, was on aspirin, statin, Lovenox, beta-angela. Echocardiogram showed a ejection fraction of 70%, grade 1 out of 4 diastolic dysfunction. Cardiology was consulted, felt that likely patient had a type II NSTEMI related to shock and GI bleed and pneumonia and sepsis, however could not rule out underlying cardiac etiology given risk factors, however could not continue Lovenox given GI bleed as above. Patient was transferred to [facility]. Patient also was found to have extensive DVTs of bilateral lower extremities, VQ scan did not show any evidence of a pulmonary emboli, was on anticoagulation with Lovenox, however given GI bleed anticoagulation was discontinued. After discussion with cardiology, plans were to place a IVC filter, however this was delayed given GI bleed as above. Patient was transferred to [facility]. Patient also was found to have sepsis secondary to left lower extremity cellulitis, right posterior middle lobe pneumonia, was placed on broad-spectrum antibiotics, received blood cultures, sputum cultures, urine cultures. Patient was found to have a right posterior middle lobe pneumonia, I reviewed th e CT scan with physician at [facility], as there was different readings based on different physicians, a few of the readings stated it was a cavitary lesion, other readings said that it was more of a pseudomass related to fluid in the fissure. Patient will likely require further CTs to delineate the right posterior middle lobe, if there is no significant change it might require a biopsy Patient also had shock multifactorial related to sepsis, hemorrhagic shock, on vasopressin and Levophed as above. Physical Exam Const: COMMON NORMALS: alert GENERAL APPEARANCE: anxious and ill appearing ORIENTATION/CONSCIOUSNESS: Yes awake, Yes oriented to person, Yes oriented to place and Yes oriented to time Neck/C-Spine: COMMON NORMALS: no JVD OTHER: Right subclavian line in place Chest: COMMONS NORMALS: normal inspection of the chest Resp: COMMON NORMALS: normal respiratory effort, No retractions, No use of accessory muscles and clear to auscultation bilaterally AUSCULTATION: clear to auscultation bilaterally Cardio: COMMON NORMALS: no JVD, regular rate, regular rhythm, S1 normal heart sound present and S2 normal heart sound present RATE: regular rate RHYTHM: regular rhythm HEART SOUNDS: S1 normal heart sound present and S2 normal heart sound present GI: COMMON NORMALS: Normal to inspection, nondistended, normoactive bowel sounds present, Soft to palpation, non-tender and No hepatosplenomegaly present PALPATION: Yes Soft to palpation and Yes No hepatosplenomegaly present : COMMON NORMALS: Yes no CVA tenderness BLADDER/KIDNEY EXAM: Yes no CVA tenderness Back/Pelvis: COMMON NORMALS: no CVA tenderness Extremity: COMMON NORMALS: capillary refill normal, no clubbing, cyanosis or edema and no pedal edema Neuro: SENSORIUM/ORIENTATION: Yes alert, Yes oriented to person, Yes oriented to place and Yes oriented to time Urinary Catheter Management^: Hardy: Cath Placed During This Visit: yes Reason for Continuing Indwelling Catheter: Accurate Measurement of Urinary Output in Critically Ill Patients Urinary Catheter Date of Insertion: 07/20/20 Urinary Catheter Time of Insertion: 00:05 TS Data Data Completed and Pending: Completed Studies During Hospitalization Category Date Time Status CT abdomen pelvis w con* [id number] Urge nt Cat Scan 07/18/20 20:[address] abdomen pelvis wo con 18024 Rout ine Cat Scan 07/20/20 05:[address] chest wo con 7 1250 Urgent Cat Scan 07/19/20 00:[address] head wo con* 7 0450 Routine Cat Scan 07/20/20 05:[address] head wo con* 7 0450 Urgent Cat Scan 07/18/20 20:43 Completed XR chest 1V sarika ble [id number] Stat Exams 07/20/20 16:33 Completed XR chest 1V sarika ble [id number] Urgent Exams 07/18/20 20:43 Completed XR tibia fibula L T 2V [id number] Routine Exams 07/19/20 21:15 Completed NM pul vent and p erfus* [id number] Routi ne Nuc Med 07/20/20 12:04 Completed CV echo complete* [id number] Routine Ultrasound 07/20/20 20:44 [place] [id number] Stat Ultrasound 07/20/20 08:52 Completed Pending at discharge Category Date Time Status [employer]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 Routin e Exams 07/20/20 15:31 Ordered ABO/Rh Type Routi ne Lab 07/20/20 06:30 Results Blood Culture Sta t Lab 07/19/20 00:35 Results Complete Crossmat ch Routine Lab 07/20/20 06:30 Results Frozen Plasma FZ <24 1st Cont Routi ne Lab 07/20/20 06:30 Results Leukocyte Reduced RBC Routine Lab 07/20/20 06:30 Results Rfmbhvxfsth-PU-Ck ld Plus Stat Lab 07/20/20 15:05 Received Type and Screen R outine Lab 07/20/20 06:30 Results Urine Culture Sta t Lab 07/20/20 12:36 Results Labs from last 24 hours 07/20/20 07/20/20 07/20/20 15:05 15:05 15:05 WBC 15.1 H RBC 2.25 L Hgb 6.8 L Hct 21.7 L MCV 96.4 H MCH 30.2 MCHC 31.3 RDW 13.6 Plt Count 298 MPV 9.9 Neut % (Auto) 74.7 Lymph % (Auto) 10.7 [place] % (Auto) 9.7 Eos % (Auto) 2.4 Baso % (Auto) 0.6 Neut # (Auto) 11.28 H Lymph # (Auto) 1.6 [place] # (Auto) 1.5 H Eos # (Auto) 0.4 Baso # (Auto) 0.1 Nucleated RBC % (a uto) 0 Nucleated RBCs # 0.0 PT 16.40 H INR 1.28 H TB (QFT) Gold In T ube Pending TB Test (QFT) Nil Pending TB Test (QFT) Ricky gen Pending TB Test Mitogen - Nil Pending TB Test TB - Nil Pending Blood Type Rho(D) Type Antibody Screen Crossmatch 07/20/20 06:30 WBC RBC Hgb Hct MCV MCH MCHC RDW Plt Count MPV Neut % (Auto) Lymph % (Auto) [place] % (Auto) Eos % (Auto) Baso % (Auto) Neut # (Auto) Lymph # (Auto) [place] # (Auto) Eos # (Auto) Baso # (Auto) Nucleated RBC % (a uto) Nucleated RBCs # PT INR TB (QFT) Gold In T ube TB Test (QFT) Nil TB Test (QFT) Ricky gen TB Test Mitogen - Nil TB Test TB - Nil Blood Type O Positive Rho(D) Type Positive Antibody Screen Negative Crossmatch See Detail Vitals: Last Vital Signs Temp 98.0 F 07/20/20 23:24 Pulse 124 H 07/20/20 23:24 Resp 14 07/20/20 23:24 BP 95/65 07/20/20 23:24 Pulse Ox 99 07/20/20 23:24 TS Medications Medications Home Medications atorvastatin 40 mg PO DAILY 07/19/20 [History Confirmed 07/19/20] baclofen 10 mg PO TID PRN 07/19/20 [History Confirmed 07/19/20] carvedilol 12.5 mg PO Q12H 07/19/20 [History Confirmed 07/19/20] furosemide 20 mg PO DAILY 07/19/20 [History Confirmed 07/19/20] gabapentin 400 mg PO TID 07/19/20 [History Confirmed 07/19/20] hydrocodone-acetaminophen 1 tab PO BID PRN 07/19/20 [History Confirmed 07/19/20] lisinopril 40 mg PO DAILY 07/19/20 [History Confirmed 07/19/20] magnesium oxide 400 mg PO DAILY 07/19/20 [History Confirmed 07/19/20] meloxicam 15 mg PO DAILY 07/19/20 [History Confirmed 07/19/20] nitroglycerin 0.4 mg SUBLINGUAL Q5MIN PRN 07/19/20 [History Confirmed 07/19/20] Discharge Plan Discharge Patient Disposition: Xfer Other Condition: Stable Prescriptions: No Action atorvastatin 40 mg tablet 40 mg PO DAILY RF: 0 carvedilol 12.5 mg tablet 12.5 mg PO Q12H RF: 0 hydrocodone-acetaminophen 5-325 mg tablet 1 tab PO BID PRN (Reason: Pain) RF: 0 meloxicam 15 mg tablet 15 mg PO DAILY RF: 0 gabapentin 400 mg capsule 400 mg PO TID RF: 0 magnesium oxide 400 mg (241.3 mg magnesium) Tablet 400 mg PO DAILY RF: 0 baclofen 10 mg tablet 10 mg PO TID PRN (Reason: Muscle Spasm) RF: 0 nitroglycerin 0.4 mg tablet, sublingual 0.4 mg sublingual Q5MIN PRN (Reason: Chest Pain) RF: 0 furosemide 20 mg Tablet 20 mg PO DAILY RF: 0 lisinopril 40 mg tablet 40 mg PO DAILY RF: 0 Discharge Orders: Discharge Order (Routine); Ordered 07/20/20 Ordered By: Jim Pringle Referrals: Nellie Joe STRAIGHT TRUCK DRIVER [Primary Care Provider] - Transfer Attestations Time Spent in Transfer Care*: critical care time Critical Care Time (min): 120 Quality Metrics Clinical Quality Measures: During this hospital stay, did patient experience: None Coding Level of Care Code Acute Cell Reliner for Chg Fwd Diagnoses GI bleed K92.2
[2020-07-23 12:04] LABS: Quantiferon Mitogen 7.67 IU/mL; Quantiferon Nil 0.03 IU/mL; Quantiferon TB Gold NEGATIVE (NEGATIVE)
== END 2020-07-20 22:50 | disposition short-term general hospital (02) | DRG 871 ==
LOC: ER 23:34 → MEDSURG 07-19 07:36 → CSU 07-19 20:35 → ICU 07-20 00:52
PROVIDERS: Hospitalist; Admitting Provider Student in an Organized Health Care Education/Training Program; Emergency Provider Emergency Medicine; PCP Nurse Practitioner Family; Visit Provider Family Medicine
DX: A41.9 Sepsis, unspecified organism (principal); J18.9 Pneumonia, unspecified organism; R65.21 Severe sepsis with septic shock; I21.A1 Myocardial infarction type 2; L03.116 Cellulitis of left lower limb; E87.1 Hypo-osmolality and hyponatremia; N17.9 Acute kidney failure, unspecified; L97.929 Non-pressure chronic ulcer of unspecified part of left lower leg with unspecified severity; K92.2 Gastrointestinal hemorrhage, unspecified; I82.412 Acute embolism and thrombosis of left femoral vein; I82.431 Acute embolism and thrombosis of right popliteal vein; E78.5 Hyperlipidemia, unspecified; M19.90 Unspecified osteoarthritis, unspecified site; K31.89 Other diseases of stomach and duodenum; I25.119 Atherosclerotic heart disease of native coronary artery with unspecified angina pectoris; Z95.1 Presence of aortocoronary bypass graft; Z95.5 Presence of coronary angioplasty implant and graft; L89.152 Pressure ulcer of sacral region, stage 2; I95.89 Other hypotension; I50.9 Heart failure, unspecified; I11.0 Hypertensive heart disease with heart failure; I71.4 Abdominal aortic aneurysm, without rupture; R53.81 Other malaise; F41.9 Anxiety disorder, unspecified
CPT/HCPCS: 12345; 36415; 36430; 51702; 70450; 71045; 71250; 73590; 74176; 74177; 78014; 80051; 80053; 80061; 81003; 82274; 82330; 82436; 82533; 82570; 82728; 82805; 83036; 83540; 83550; 83605; 83690; 83880; 84133; 84145; 84300; 84443; 84484; 84550; 85025; 85045; 85610; 85651; 85730; 86480; 86850; 86900; 86920; 86927; 87040; 87086; 87426; 87641; 90471; 90686; 93005; 93306; 93970; 96372; 96375; 99282; A9540; A9567; C9113; J0456; J0690; J1650; J2060; J2543; J3370; J3430; J3490; J7030; J7040; J7050; P9016; P9017; Q9967

== ENCOUNTER 2020-08-25 09:36 | Emergency (ER) | payer MEDICARE, SELFPAY ==
[2020-08-25] VITALS (15 sets, daily range): BP systolic 104–164; BP diastolic 73–119; PULSE 69–93; RESP 16–23; TEMP 36.8; O2SAT 92–95; BMI 35.9
--- NOTE | 2020-08-25 09:49 | ED_ITS ---
Documented by User: SPRING Torres 08/25/20 13:39 HPI - General Adult General: Chief complaint: Weakness Stated complaint: INCREASED SHAKING; C DIFF POS Time Seen by Provider: 08/25/20 09:39 Source: patient and EMS Mode of arrival: EMS Limitations: no limitations History of Present Illness: HPI narrative: Patient is a 70-year-old male who presents to ED today via EMS from [facility] for complaints of shaking and jerking motions . [facility] states patient was having trouble eating due to the shaking. Patient tells me he has had shaking for many years now however [facility] staff member states she has had patient all weekend and has not noticed shaking until today. He was apparently also complaining of a cough and trouble swallowing this morning at breakfast. He does have a history of this and recently had barium swallow study and is on liquid diet per [facility] staff. Patient is non-ambulatory. group home staff states his told them he did this a few months ago prior to being admitted for sepsis. Dr. Tilley was notified of patient by [facility] and recommended he come to the ED for further evaluation. [facility] also tells me patient has C. Diff. His medication list from [facility] states he is on Vancomycin. PMH significant for CAD status post CABG and stenting 10 years ago, bilateral LE DVTs, hypertension, hyperlipidemia, osteoarthritis. He was recently admitted to our hospital for a NSTEMI, possible GI bleed, L LE cellulitis, pneumonia/sepsis. He was subsequently transferred to [facility] for further management. Associated symptoms: Deny chest pain, confusion, dyspnea, headache(s), malaise, nausea, palpitations, syncope or vomiting Review of Systems Const: Denies: fever(s), chills, body aches, fatigue or malaise ENMT: Reports: other (pt denies trouble swallowing currently); Denies: odynophagia, hoarseness, mouth pain or oral sores Card: Reports: edema (he states is chronic) and swelling of feet/ankles (chronic); Denies: chest pain, palpitations, irregular heart rhythm, syncope or pre-syncope Resp: Denies: dyspnea, productive cough, non-productive cough, pain on inspiration, change in phlegm color, hemoptysis or chest congestion GI: Denies: abdominal pain, nausea, vomiting or diarrhea : Denies: difficulty urinating, dysuria or urinary urgency Musc: Denies: neck pain or back pain Skin/Breast: Reports: other (redness to L LE that he states is not worsening, redness to R great toe) Neuro: Denies: headache(s), sensory changes, frequent falls, dizziness or confusion PFSH ED PFSH: Medical History Aneurysm of infrarenal abdominal aorta 4.4cm AP, 5.1 cm craniocaudal on 07/19/2020 CAD (coronary artery disease) CHF (congestive heart failure) Hyperlipidemia Surgical History Hx of CABG Social History Smoking and tobacco status: unknown if ever smoked Physical Exam Const: COMMON NORMALS: no acute distress, patient oriented x3, no limitations and alert GENERAL APPEARANCE: cooperative NUTRITIONAL APPEARANCE: obese ORIENTATION/CONSCIOUSNESS: Yes oriented to person, Yes oriented to place and Yes oriented to time OTHER: very mild shaking noted during exam HENMT: COMMON NORMALS: normocephalic and atraumatic HEAD & SCALP: normocephalic and atraumatic Resp: COMMON NORMALS: normal respiratory effort and clear to auscultation louise aterally AUSCULTATION: clear to auscultation bilaterally Cardio: COMMON NORMALS: regular rate and regular rhythm RATE: regular rate RHYTHM: regular rhythm GI: COMMON NORMALS: Normal to inspection, nondistended, normoactive bowel sounds present, Soft to palpation, non-tender, No hepatosplenomegaly present and no masses PALPATION: Yes Soft to palpation and Yes No hepatosplenomegaly present Extremity: OTHER: bilateral LE edema Neuro: COMMON NORMALS: patient oriented x3, CN's II-XII intact bilaterally, moves all extremities, no focal motor deficits and no sensory deficits noted SENSORIUM/ORIENTATION: Yes alert, Yes oriented to person, Yes oriented to place and Yes oriented to time Skin: OTHER: mild erythema to L anterior lower extremity; redness and swelling to supeior aspect of R great toe; [facility] staff are aware of these and feel they may be worsening; he has a stage II sacral ulcer-[facility] staff they have been dressing this and it seems to be improving Course Vital Signs: Vital signs: Vital Signs Temperature 98.2 F 08/25/20 09:42 Pulse Rate 73 08/25/20 13:33 Respiratory Rate 20 H 08/25/20 13:33 Blood Pressure 164/91 08/25/20 13:33 Pulse Oximetry 92 08/25/20 13:33 MDM - General Adult MDM Narrative: Medical decision making narrative: I have spoken to Dr. Vasquez in regards to this patient. He will see patient and assume care and speak to Dr. Tilley regarding plan. Lab Data: Labs: Lab Results 08/25/20 08/25/20 08/25/20 Range/Units 09:52 10:10 10:10 WBC Cancelled Corrected WBC Cancelled RBC Cancelled Hgb Cancelled Hct Cancelled MCV Cancelled MCH Cancelled MCHC Cancelled RDW Cancelled Plt Count Cancelled MPV Cancelled Gran % Cancelled Neut % (Auto) Cancelled Lymph % (Auto) Cancelled Edmunds % (Auto) Cancelled Eos % (Auto) Cancelled Baso % (Auto) Cancelled Neut # (Auto) Cancelled Lymph # (Auto) Cancelled Edmunds # (Auto) Cancelled Eos # (Auto) Cancelled Baso # (Auto) Cancelled Absolute Gran (aut o) Cancelled Nucleated RBC % (a uto) Cancelled Nucleated RBCs # Cancelled PT (12.1-14.9) SECO NDS INR (0.8-1.2) APTT (23.9-36.7) SECO NDS Sodium 135 L (136-145) mmol/L Potassium 4.6 (3.5-5.1) mmol/L Chloride 98 (98-107) mmol/L Carbon Dioxide 27 (22-29) mmol/L Anion Gap 14.6 (5-19) BUN 13 (8-23) mg/dL Creatinine 1.3 H (0.7-1.2) mg/dL GFR Calculation 54.6 L (90-130) mL/min Glucose 137 H (65-115) mg/dL POC Glucose 110 (70-110) mg/dL Calculated Osmolal ity 282 L (285-295) mOsm/k g Lactic Acid (0.5-2.2) mmol/L Calcium 9.0 (8.5-10.5) mg/dL Magnesium 1.7 (1.7-2.3) mg/dL Total Bilirubin 0.3 (0.15-1.2) mg/dL AST 18 (0-40) U/L ALT 15 (0-41) U/L Alkaline Phosphata se 71 (40-130) IU/L Troponin T Baselin e (0-15) ng/L Troponin T 120 Min [facility] (0-15) ng/L Delta Troponin T (0-10) ABS# C-Reactive Protein 9.2 H (0.0-4.9) mg/L NT-Pro-B Natriuret Pep 703 H (0-125) pg/mL Total Protein 6.2 L (6.6-8.7) g/dL Albumin 3.2 L (3.5-5.2) g/dL Globulin 3.0 (1.3-4.6) g/dL Procalcitonin 0.13 (0-0.5) ng/mL Urine Color (Yellow) Urine Appearance (CLEAR) Urine pH (5-7) Ur Specific Gravit y (1.005-1.030) Urine Protein (Negative) Urine Glucose (UA) (Normal) Urine Ketones (Negative) Urine Blood (Negative) Urine Nitrate (Negative) Urine Bilirubin (Negative) Urine Urobilinogen (Negative) mg/dL Ur Leukocyte Mari ase (Negative) 08/25/20 08/25/20 08/25/20 Range/Units 10:10 10:10 10:10 WBC Corrected WBC RBC Hgb Hct MCV MCH MCHC RDW Plt Count MPV Gran % Neut % (Auto) Lymph % (Auto) Edmunds % (Auto) Eos % (Auto) Baso % (Auto) Neut # (Auto) Lymph # (Auto) Edmunds # (Auto) Eos # (Auto) Baso # (Auto) Absolute Gran (aut o) Nucleated RBC % (a uto) Nucleated RBCs # PT 13.50 (12.1-14.9) SECO NDS INR 1.00 (0.8-1.2) APTT 21.3 L (23.9-36.7) SECO NDS Sodium (136-145) mmol/L Potassium (3.5-5.1) mmol/L Chloride (98-107) mmol/L Carbon Dioxide (22-29) mmol/L Anion Gap (5-19) BUN (8-23) mg/dL Creatinine (0.7-1.2) mg/dL GFR Calculation (90-130) mL/min Glucose (65-115) mg/dL POC Glucose (70-110) mg/dL Calculated Osmolal ity (285-295) mOsm/k g Lactic Acid 2.0 (0.5-2.2) mmol/L Calcium (8.5-10.5) mg/dL Magnesium (1.7-2.3) mg/dL Total Bilirubin (0.15-1.2) mg/dL AST (0-40) U/L ALT (0-41) U/L Alkaline Phosphata se (40-130) IU/L Troponin T Baselin e 48 H (0-15) ng/L Troponin T 120 Min [facility] (0-15) ng/L Delta Troponin T (0-10) ABS# C-Reactive Protein (0.0-4.9) mg/L NT-Pro-B Natriuret Pep (0-125) pg/mL Total Protein (6.6-8.7) g/dL Albumin (3.5-5.2) g/dL Globulin (1.3-4.6) g/dL Procalcitonin (0-0.5) ng/mL Urine Color (Yellow) Urine Appearance (CLEAR) Urine pH (5-7) Ur Specific Gravit y (1.005-1.030) Urine Protein (Negative) Urine Glucose (UA) (Normal) Urine Ketones (Negative) Urine Blood (Negative) Urine Nitrate (Negative) Urine Bilirubin (Negative) Urine Urobilinogen (Negative) mg/dL Ur Leukocyte Mari ase (Negative) 08/25/20 08/25/20 08/25/20 Range/Units 12:15 12:25 12:25 WBC 11.2 H Corrected WBC RBC 3.61 L Hgb 10.3 L Hct 34.1 L MCV 94.5 H MCH 28.5 MCHC 30.2 RDW 16.4 H Plt Count 340 MPV 10.6 H Gran % Neut % (Auto) 76.0 Lymph % (Auto) 10.6 Edmunds % (Auto) 9.3 Eos % (Auto) 2.8 Baso % (Auto) 0.8 Neut # (Auto) 8.52 H Lymph # (Auto) 1.2 Edmunds # (Auto) 1.0 H Eos # (Auto) 0.3 Baso # (Auto) 0.1 Absolute Gran (aut o) Nucleated RBC % (a uto) 0 Nucleated RBCs # 0.0 PT (12.1-14.9) SECO NDS INR (0.8-1.2) APTT (23.9-36.7) SECO NDS Sodium (136-145) mmol/L Potassium (3.5-5.1) mmol/L Chloride (98-107) mmol/L Carbon Dioxide (22-29) mmol/L Anion Gap (5-19) BUN (8-23) mg/dL Creatinine (0.7-1.2) mg/dL GFR Calculation (90-130) mL/min Glucose (65-115) mg/dL POC Glucose (70-110) mg/dL Calculated Osmolal ity (285-295) mOsm/k g Lactic Acid (0.5-2.2) mmol/L Calcium (8.5-10.5) mg/dL Magnesium (1.7-2.3) mg/dL Total Bilirubin (0.15-1.2) mg/dL AST (0-40) U/L ALT (0-41) U/L Alkaline Phosphata se (40-130) IU/L Troponin T Baselin e (0-15) ng/L Troponin T 120 Min [facility] 47.30 H (0-15) ng/L Delta Troponin T -0.70 L (0-10) ABS# C-Reactive Protein (0.0-4.9) mg/L NT-Pro-B Natriuret Pep (0-125) pg/mL Total Protein (6.6-8.7) g/dL Albumin (3.5-5.2) g/dL Globulin (1.3-4.6) g/dL Procalcitonin (0-0.5) ng/mL Urine Color Straw (Yellow) Urine Appearance Clear (CLEAR) Urine pH 5 (5-7) Ur Specific Gravit y 1.005 (1.005-1.030) Urine Protein Neg (Negative) Urine Glucose (UA) Norm (Normal) Urine Ketones Negative (Negative) Urine Blood Neg (Negative) Urine Nitrate Negative (Negative) Urine Bilirubin Neg (Negative) Urine Urobilinogen Norm (Negative) mg/dL Ur Leukocyte Mari ase Negative (Negative) Imaging Data^: CXR: Radiologist's impression: [address] [address] XRay Report Signed Patient: Ravindra Lam Unit #: [id number] : 1950 Age/Sex: 70 / M ADM Date: 08/25/20 Loc: ER Room/Bed: Attending Dr: Ordering Provider/Ordering MD: Nanci Montalvo Date of Service: 08/25/20 Procedure(s): XR chest 1V portable [id number] Accession Number(s): [id number] Report Number: [id number] PROCEDURE INFORMATION: Exam: XR Chest, 1 View Exam date and time: 08/25/2020 9:50 AM Age: 70 years old Clinical indication: Shortness of breath; Additional info: Cough TECHNIQUE: Imaging protocol: XR of the chest Views: 1 view. COMPARISON: CR XR chest 1V portable [id number] 07/20/2020 4:29 PM FINDINGS: Lungs: There are small patchy hazy opacities in the right base which may represent mild atelectasis or small amount of fluid in the fissures. No new pulmonary infiltrates are seen. Pleural space: Unremarkable. No pleural effusion. No pneumothorax. Heart/Mediastinum: The patient has undergone coronary bypass surgery. The heart may be normal for the AP semi lordotic projection. Bones/joints: Unremarkable. XR/XR chest 1V portable [id number] IMPRESSION: 1. No significant change in patchy hazy right basilar density consistent with mild atelectasis or small effusion. Dictated By: Ravindra Ayoub Signed By: Ravindra Ayoub Signed Date/Time: 08/25/20 1034 DD/ 1032 Discharge Plan Discharge Patient Disposition: SNF w Plan Readm Clinical Impression: Cellulitis and abscess of toe of right foot, Tremor Condition: Stable Prescriptions: New doxycycline hyclate 100 mg capsule 100 mg PO BID 7 Days Qty: 14 RF: 0 Continued atorvastatin 40 mg tablet 40 mg PO DAILY RF: 0 carvedilol 12.5 mg tablet 12.5 mg PO Q12H RF: 0 hydrocodone-acetaminophen 5-325 mg tablet 1 tab PO BID PRN (Reason: Pain) RF: 0 meloxicam 15 mg tablet 15 mg PO DAILY RF: 0 gabapentin 400 mg capsule 400 mg PO TID RF: 0 magnesium oxide 400 mg (241.3 mg magnesium) Tablet 400 mg PO DAILY RF: 0 baclofen 10 mg tablet 10 mg PO TID PRN (Reason: Muscle Spasm) RF: 0 nitroglycerin 0.4 mg tablet, sublingual 0.4 mg sublingual Q5MIN PRN (Reason: Chest Pain) RF: 0 furosemide 20 mg Tablet 20 mg PO DAILY RF: 0 lisinopril 40 mg tablet 40 mg PO DAILY RF: 0 Discharge Orders: Discharge ED (Routine); Ordered 08/25/20 Ordered By: Lenora Vasquez Referrals: Nellie Joe NP [Primary Care Provider] - Aniket Tilley DO [Physician] - 1-3 days Discharge Diet: Usual diet Discharge Activity: Resume usual activity Patient Instructions: Cellulitis (ED) Activity Restrictions/Additional Instructions: Return for any new or worsening symptoms. Follow-up with your primary care provider within 3 days. Take the antibiotic as prescribed. Continue home medications. Coding Level of Care Code ED Airport Driver for Chg Fwd Exam Detailed Documented by User: Lenora Vasquez MD, [facility] 08/25/20 14:02 HPI - General Adult General: Chief complaint: Weakness Stated complaint: INCREASED SHAKING; C DIFF POS Time Seen by Provider: 08/25/20 09:39 PFSH ED PFSH: Medical History Aneurysm of infrarenal abdominal aorta 4.4cm AP, 5.1 cm craniocaudal on 07/19/2020 CAD (coronary artery disease) CHF (congestive heart failure) Hyperlipidemia Surgical History Hx of CABG Social History Smoking and tobacco status: unknown if ever smoked Course Consultations: Consultation #1: Discussed the patient with his primary care provider, Dr. Tilley. Described the clinical findings including the history, examination, lab findings. Also advised that if patient states his symptoms are not new and he feels fine and wants to be discharged back to the [place] [facility]. Advised that I see no reason to keep him in the hospital. Dr. Tilley agreed to accept him back to the facility. Time: 12:53 Vital Signs: Vital signs: Vital Signs Temperature 98.2 F 08/25/20 09:42 Pulse Rate 73 08/25/20 13:33 Respiratory Rate 20 H 08/25/20 13:33 Blood Pressure 164/91 08/25/20 13:33 Pulse Oximetry 92 08/25/20 13:33 MDM - General Adult MDM Narrative: Medical decision making narrative: Please see the PA's note for a complete history and examination. I evaluated and examined this patient also. 70 [place] who [place]. They felt he was having seizures . The patient's explained that he has been having tremors and this is not new. The patient also states that his symptoms are not new. Evaluation in the emergency department is unremarkable other than a small abscess on his right great toe. The patient states that this is not new and he is receiving treatment for it. Since evaluation is unremarkable he is being discharged back to the [place] [facility]. Lab Data: Labs: Lab Results 08/25/20 08/25/20 08/25/20 Range/Units 09:52 10:10 10:10 WBC Cancelled Corrected WBC Cancelled RBC Cancelled Hgb Cancelled Hct Cancelled MCV Cancelled MCH Cancelled MCHC Cancelled RDW Cancelled Plt Count Cancelled MPV Cancelled Gran % Cancelled Neut % (Auto) Cancelled Lymph % (Auto) Cancelled Edmunds % (Auto) Cancelled Eos % (Auto) Cancelled Baso % (Auto) Cancelled Neut # (Auto) Cancelled Lymph # (Auto) Cancelled Edmunds # (Auto) Cancelled Eos # (Auto) Cancelled Baso # (Auto) Cancelled Absolute Gran (aut o) Cancelled Nucleated RBC % (a uto) Cancelled Nucleated RBCs # Cancelled PT (12.1-14.9) SECO NDS INR (0.8-1.2) APTT (23.9-36.7) SECO NDS Sodium 135 L (136-145) mmol/L Potassium 4.6 (3.5-5.1) mmol/L Chloride 98 (98-107) mmol/L Carbon Dioxide 27 (22-29) mmol/L Anion Gap 14.6 (5-19) BUN 13 (8-23) mg/dL Creatinine 1.3 H (0.7-1.2) mg/dL GFR Calculation 54.6 L (90-130) mL/min Glucose 137 H (65-115) mg/dL POC Glucose 110 (70-110) mg/dL Calculated Osmolal ity 282 L (285-295) mOsm/k g Lactic Acid (0.5-2.2) mmol/L Calcium 9.0 (8.5-10.5) mg/dL Magnesium 1.7 (1.7-2.3) mg/dL Total Bilirubin 0.3 (0.15-1.2) mg/dL AST 18 (0-40) U/L ALT 15 (0-41) U/L Alkaline Phosphata se 71 (40-130) IU/L Troponin T Baselin e (0-15) ng/L Troponin T 120 Min [facility] (0-15) ng/L Delta Troponin T (0-10) ABS# C-Reactive Protein 9.2 H (0.0-4.9) mg/L NT-Pro-B Natriuret Pep 703 H (0-125) pg/mL Total Protein 6.2 L (6.6-8.7) g/dL Albumin 3.2 L (3.5-5.2) g/dL Globulin 3.0 (1.3-4.6) g/dL Procalcitonin 0.13 (0-0.5) ng/mL Urine Color (Yellow) Urine Appearance (CLEAR) Urine pH (5-7) Ur Specific Gravit y (1.005-1.030) Urine Protein (Negative) Urine Glucose (UA) (Normal) Urine Ketones (Negative) Urine Blood (Negative) Urine Nitrate (Negative) Urine Bilirubin (Negative) Urine Urobilinogen (Negative) mg/dL Ur Leukocyte Mari ase (Negative) 08/25/20 08/25/20 08/25/20 Range/Units 10:10 10:10 10:10 WBC Corrected WBC RBC Hgb Hct MCV MCH MCHC RDW Plt Count MPV Gran % Neut % (Auto) Lymph % (Auto) Edmunds % (Auto) Eos % (Auto) Baso % (Auto) Neut # (Auto) Lymph # (Auto) Edmunds # (Auto) Eos # (Auto) Baso # (Auto) Absolute Gran (aut o) Nucleated RBC % (a uto) Nucleated RBCs # PT 13.50 (12.1-14.9) SECO NDS INR 1.00 (0.8-1.2) APTT 21.3 L (23.9-36.7) SECO NDS Sodium (136-145) mmol/L Potassium (3.5-5.1) mmol/L Chloride (98-107) mmol/L Carbon Dioxide (22-29) mmol/L Anion Gap (5-19) BUN (8-23) mg/dL Creatinine (0.7-1.2) mg/dL GFR Calculation (90-130) mL/min Glucose (65-115) mg/dL POC Glucose (70-110) mg/dL Calculated Osmolal ity (285-295) mOsm/k g Lactic Acid 2.0 (0.5-2.2) mmol/L Calcium (8.5-10.5) mg/dL Magnesium (1.7-2.3) mg/dL Total Bilirubin (0.15-1.2) mg/dL AST (0-40) U/L ALT (0-41) U/L Alkaline Phosphata se (40-130) IU/L Troponin T Baselin e 48 H (0-15) ng/L Troponin T 120 Min [facility] (0-15) ng/L Delta Troponin T (0-10) ABS# C-Reactive Protein (0.0-4.9) mg/L NT-Pro-B Natriuret Pep (0-125) pg/mL Total Protein (6.6-8.7) g/dL Albumin (3.5-5.2) g/dL Globulin (1.3-4.6) g/dL Procalcitonin (0-0.5) ng/mL Urine Color (Yellow) Urine Appearance (CLEAR) Urine pH (5-7) Ur Specific Gravit y (1.005-1.030) Urine Protein (Negative) Urine Glucose (UA) (Normal) Urine Ketones (Negative) Urine Blood (Negative) Urine Nitrate (Negative) Urine Bilirubin (Negative) Urine Urobilinogen (Negative) mg/dL Ur Leukocyte Mari ase (Negative) 08/25/20 08/25/20 08/25/20 Range/Units 12:15 12:25 12:25 WBC 11.2 H Corrected WBC RBC 3.61 L Hgb 10.3 L Hct 34.1 L MCV 94.5 H MCH 28.5 MCHC 30.2 RDW 16.4 H Plt Count 340 MPV 10.6 H Gran % Neut % (Auto) 76.0 Lymph % (Auto) 10.6 Edmunds % (Auto) 9.3 Eos % (Auto) 2.8 Baso % (Auto) 0.8 Neut # (Auto) 8.52 H Lymph # (Auto) 1.2 Edmunds # (Auto) 1.0 H Eos # (Auto) 0.3 Baso # (Auto) 0.1 Absolute Gran (aut o) Nucleated RBC % (a uto) 0 Nucleated RBCs # 0.0 PT (12.1-14.9) SECO NDS INR (0.8-1.2) APTT (23.9-36.7) SECO NDS Sodium (136-145) mmol/L Potassium (3.5-5.1) mmol/L Chloride (98-107) mmol/L Carbon Dioxide (22-29) mmol/L Anion Gap (5-19) BUN (8-23) mg/dL Creatinine (0.7-1.2) mg/dL GFR Calculation (90-130) mL/min Glucose (65-115) mg/dL POC Glucose (70-110) mg/dL Calculated Osmolal ity (285-295) mOsm/k g Lactic Acid (0.5-2.2) mmol/L Calcium (8.5-10.5) mg/dL Magnesium (1.7-2.3) mg/dL Total Bilirubin (0.15-1.2) mg/dL AST (0-40) U/L ALT (0-41) U/L Alkaline Phosphata se (40-130) IU/L Troponin T Baselin e (0-15) ng/L Troponin T [address] [facility] 47.30 H (0-15) ng/L Delta Troponin T -0.70 L (0-10) ABS# C-Reactive Protein (0.0-4.9) mg/L NT-Pro-B Natriuret Pep (0-125) pg/mL Total Protein (6.6-8.7) g/dL Albumin (3.5-5.2) g/dL Globulin (1.3-4.6) g/dL Procalcitonin (0-0.5) ng/mL Urine Color Straw (Yellow) Urine Appearance Clear (CLEAR) Urine pH 5 (5-7) Ur Specific Gravit y 1.005 (1.005-1.030) Urine Protein Neg (Negative) Urine Glucose (UA) Norm (Normal) Urine Ketones Negative (Negative) Urine Blood Neg (Negative) Urine Nitrate Negative (Negative) Urine Bilirubin Neg (Negative) Urine Urobilinogen Norm (Negative) mg/dL Ur Leukocyte Mari ase Negative (Negative) Discharge Plan Discharge Patient Disposition: SNF w Plan Readm Clinical Impression: Cellulitis and abscess of toe of right foot, Tremor Condition: Stable Prescriptions: New doxycycline hyclate 100 mg capsule 100 mg PO BID 7 Days Qty: 14 RF: 0 Continued atorvastatin 40 mg tablet 40 mg PO DAILY RF: 0 carvedilol 12.5 mg tablet 12.5 mg PO Q12H RF: 0 hydrocodone-acetaminophen 5-325 mg tablet 1 tab PO BID PRN (Reason: Pain) RF: 0 meloxicam 15 mg tablet 15 mg PO DAILY RF: 0 gabapentin 400 mg capsule 400 mg PO TID RF: 0 magnesium oxide 400 mg (241.3 mg magnesium) Tablet 400 mg PO DAILY RF: 0 baclofen 10 mg tablet 10 mg PO TID PRN (Reason: Muscle Spasm) RF: 0 nitroglycerin 0.4 mg tablet, sublingual 0.4 mg sublingual Q5MIN PRN (Reason: Chest Pain) RF: 0 furosemide 20 mg Tablet 20 mg PO DAILY RF: 0 lisinopril 40 mg tablet 40 mg PO DAILY RF: 0 Discharge Orders: Discharge ED (Routine); Ordered 08/25/20 Ordered By: Lenora Vasquez Referrals: Nellie Joe NP [Primary Care Provider] - Aniket Tilley DO [Physician] - 1-3 days Discharge Diet: Usual diet Discharge Activity: Resume usual activity Patient Instructions: Cellulitis (ED) Activity Restrictions/Additional Instructions: Return for any new or worsening symptoms. Follow-up with your primary care provider within 3 days. Take the antibiotic as prescribed. Continue home medications. Coding Level of Care Code ED Airport Driver for Mayda Fwsteve Exam Detailed
[2020-08-25 09:54] LABS: Glucose Point of Care 110 mg/dL (70-110)
--- NOTE | 2020-08-25 10:01 | ECG_ITS ---
[facility] Test Date: 2020-08-25 Pat Name: Ravindra Lam Department: Room: Gender: Male Passenger Relations Representative: : 1950 Requested By: Nanic Montalvo Order Number: [id number] Paola MD: Geovanni Knapp M.D. Measurements Intervals [place] Rate: 83 P: 62 NM: 166 QRS: 19 QRSD: 92 T: 68 QT: 366 QTc: 431 Interpretive Statements SINUS RHYTHM NONSPECIFIC T-WAVE ABNORMALITY Compared to ECG 07/20/2020 06:24:37 Sinus tachycardia no longer present Possible ischemia no longer present T-wave abnormality still present Electronically Signed On 08-25-2020 17:47:08 SPLITTING MACHINE FEEDER by Geovanni Knapp M.D. [id number]
[2020-08-25 10:42] LABS: Troponin(5th) Baseline 48 ng/L (0-15)
[2020-08-25 10:53] LABS: NT Pro B Type Natriuretic Pept 703 pg/mL (0-125); Procalcitonin 0.13 ng/mL (0-0.5)
[2020-08-25 10:56] LABS: Partial Thromboplastin Time 21.3 SECONDS (23.9-36.7)
[2020-08-25 11:06] LABS: Alanine Aminotransferase 15 U/L (0-41); Albumin Level 3.2 g/dL (3.5-5.2); Alkaline Phosphatase 71 IU/L (40-130); Anion Gap 14.6 (5-19); Aspartate Amino Transferase 18 U/L (0-40); Blood Urea Nitrogen 13 mg/dL (8-23); C Reactive Protein 9.2 mg/L (0.0-4.9); Carbon Dioxide 27 mmol/L (22-29); Chloride 98 mmol/L (98-107); Glomerular Filtration Rate 54.6 mL/min (90-130); Glucose 137 mg/dL (65-115); Magnesium 1.7 mg/dL (1.7-2.3); Osmolality Calculated 282 mOsm/kg (285-295); Potassium 4.6 mmol/L (3.5-5.1); Sodium 135 mmol/L (136-145); Total Bilirubin 0.3 mg/dL (0.15-1.2); Total Protein 6.2 g/dL (6.6-8.7)
[2020-08-25 12:15] LABS: Add Urine Microscopic? NO
[2020-08-25 12:16] LABS: Bilirubin Urine Neg (Negative); Blood Urine Neg (Negative); Glucose Urine UA Norm (Normal); Ketones Urine Negative (Negative); Leukocyte Esterase Urine Negative (Negative); Nitrate Urine Negative (Negative); Protein Urine Neg (Negative); Specific Gravity, Urine 1.005 (1.005-1.030); Urine Appearance Clear (CLEAR); Urine Color Straw (Yellow); Urobilinogen Urine Norm (Negative); pH Urine 5 (5-7)
[2020-08-25 12:32] LABS: Basophils # 0.1 10^3/uL (0.0-0.1); Basophils % 0.8 %; Eosinophils # 0.3 10^3/uL (0.0-0.8); Eosinophils % 2.8 %; Hematocrit 34.1 % (42.0-52.0); Hemoglobin 10.3 g/dL (11.7-16.6); Lymphocytes # 1.2 10^3/uL (0.8-4.8); Lymphocytes % 10.6 %; Mean Corpuscular HGB Conc 30.2 g/dL (30.0-36.0); Mean Corpuscular Hemoglobin 28.5 pg (28.0-34.0); Mean Corpuscular Volume 94.5 fL (80-94); Mean Platelet Volume 10.6 fL (7.4-10.4); Monocytes % 9.3 %; Neutrophils # 8.52 10^3/uL (1.8-7.7); Nucleated Red Blood Cells % 0 %; Platelet Count 340 10^3/cmm (130-400); Red Blood Count 3.61 10^6/uL (4.1-5.3); Red Cell Distribution Width 16.4 % (12.1-15.1); White Blood Count 11.2 10^3/uL (4.0-10.0)
--- NOTE | 2020-08-27 16:58 | PC.NURSE ---
blood culture 1 of 3 gram positive rods preliminary results
== END 2020-08-25 14:42 ==
PROVIDERS: Physician Assistant; Emergency Provider Family Medicine; PCP Nurse Practitioner Family
DX: L03.031 Cellulitis of right toe (principal); L02.611 Cutaneous abscess of right foot; R25.1 Tremor, unspecified; I25.10 Atherosclerotic heart disease of native coronary artery without angina pectoris; I50.9 Heart failure, unspecified; E78.5 Hyperlipidemia, unspecified; Z95.1 Presence of aortocoronary bypass graft
CPT/HCPCS: 12345; 36415; 36416; 71045; 80053; 81003; 82962; 83605; 83735; 83880; 84145; 84484; 85025; 85610; 85730; 86140; 87040; 87205; 93005; 96361; 96374; 99282; 99284

== ENCOUNTER → 2022-07-06 13:51 | Outpatient (BNVA) | payer MEDICARE, SELFPAY | PROVIDERS: PCP Nurse Practitioner Family; Visit Provider Thoracic Surgery (Cardiothoracic Vascular Surgery) | DX: I96 Gangrene, not elsewhere classified (principal); L89.892 Pressure ulcer of other site, stage 2; L89.303 Pressure ulcer of unspecified buttock, stage 3 | CPT/HCPCS: 97597; 97598; 99213 ==

== ENCOUNTER → 2022-07-13 15:19 | Outpatient (BNVA) | payer MEDICARE, SELFPAY | PROVIDERS: PCP Nurse Practitioner Family; Visit Provider Nurse Practitioner Family | DX: I96 Gangrene, not elsewhere classified (principal); L89.313 Pressure ulcer of right buttock, stage 3; L89.892 Pressure ulcer of other site, stage 2 | CPT/HCPCS: 11042; A6197 ==

== ENCOUNTER → 2022-07-20 15:06 | Outpatient (BNVA) | payer MEDICARE, SELFPAY | PROVIDERS: PCP Nurse Practitioner Family; Visit Provider Nurse Practitioner Family | DX: I96 Gangrene, not elsewhere classified (principal); L89.313 Pressure ulcer of right buttock, stage 3; L89.892 Pressure ulcer of other site, stage 2 | CPT/HCPCS: 11042 ==

== ENCOUNTER → 2022-07-27 13:10 | Outpatient (BNVA) | payer MEDICARE, SELFPAY | PROVIDERS: PCP Nurse Practitioner Family; Visit Provider Nurse Practitioner Family | DX: I96 Gangrene, not elsewhere classified (principal); L89.892 Pressure ulcer of other site, stage 2; L89.303 Pressure ulcer of unspecified buttock, stage 3 | CPT/HCPCS: 11042 ==

== ENCOUNTER → 2022-08-03 12:54 | Outpatient (BNVA) | payer MEDICARE, SELFPAY | PROVIDERS: PCP Nurse Practitioner Family; Visit Provider Nurse Practitioner Family | DX: I96 Gangrene, not elsewhere classified (principal); L89.303 Pressure ulcer of unspecified buttock, stage 3; L89.892 Pressure ulcer of other site, stage 2 | CPT/HCPCS: 11042 ==

== ENCOUNTER → 2022-08-10 13:34 | Outpatient (BNVA) | payer MEDICARE, SELFPAY | PROVIDERS: PCP Nurse Practitioner Family; Visit Provider Thoracic Surgery (Cardiothoracic Vascular Surgery) | DX: I96 Gangrene, not elsewhere classified (principal); L89.892 Pressure ulcer of other site, stage 2; L89.303 Pressure ulcer of unspecified buttock, stage 3 | CPT/HCPCS: 11042; A6252 ==

== ENCOUNTER 2022-08-31 13:41 | Outpatient (CLI) | payer MEDICARE, SELFPAY ==
--- NOTE | 2022-08-31 13:57 | XRR_ITS ---
PROCEDURE INFORMATION: Exam: XR Right Foot Exam date and time: 08/31/2022 1:57 PM Age: 72 years old Clinical indication: Condition or disease; Other: Non-healing ulcer bone expos; Patient HX: Hammer toe pain; Additional info: Non-healing ulcer bone expos; R/O osteomyelitis of R big toe, attn to right great toe ulceration and bone TECHNIQUE: Imaging protocol: Radiologic exam of the Right foot. Views: 3 or more views. COMPARISON: [place] [id number] 07/20/2020 9:21 AM FINDINGS: Bones/joints: There is extensive toe flexion which markedly limits the exam. Moderate midfoot DJD. No definite acute fracture. No definite bone destruction. Soft tissues: Diffuse soft tissue swelling. Other findings: Extensive artifacts overlie the foot. XR/XR foot RT min 3V* [id number] IMPRESSION: Challenging exam as described with no strong evidence of focal bone destruction. If concern remains, MRI may be helpful to assess the great toe. Due to flexion deformities, the great toe is not well assessed overall.
== END 2022-08-31 13:42 | disposition home or self-care (01) ==
LOC: RAD 13:49
PROVIDERS: PCP Nurse Practitioner Family; Visit Provider Thoracic Surgery (Cardiothoracic Vascular Surgery)
DX: L97.512 Non-pressure chronic ulcer of other part of right foot with fat layer exposed (principal)
CPT/HCPCS: 11042; 73630; A6212

== ENCOUNTER → 2022-09-07 14:59 | Outpatient (BNVA) | payer MEDICARE, SELFPAY | PROVIDERS: PCP Nurse Practitioner Family; Visit Provider Thoracic Surgery (Cardiothoracic Vascular Surgery) | DX: I96 Gangrene, not elsewhere classified (principal); L89.892 Pressure ulcer of other site, stage 2; L89.303 Pressure ulcer of unspecified buttock, stage 3 | CPT/HCPCS: 11043; 97597; A6212 ==

== ENCOUNTER 2025-08-11 18:15 | Inpatient (IN) | payer MEDICARE, SELFPAY ==
[2025-08-11] VITALS (11 sets, daily range): BP systolic 119–217; BP diastolic 66–124; PULSE 73–92; RESP 16–18; TEMP 36.6–36.7; O2SAT 93–96; BMI 34.4
--- OUTSIDE RECORDS SUMMARY | 2025-08-11 18:23 | XMS_ITS | Encounter Summary ---
Author Organization [facility] Address [address] [place] [address] Care Team Providers Care Hoop Riveting Machine Operator Helper Name Role Phone Nellie Joe SEAT SCOOPER MACHINE Primary Care Provider [phone] Encounter Details Date Type Department Care Team (Late st Contact Info) Description 08/02/2020 Lab Requisition [facility] Laboratory Services [address] [place] [phone] Luis Angel Gavin MD [address] [place] [address] Social History Tobacco Use Types Packs/Day Years Used Date Smoking Tobacco: Former Cigarettes 1 35 0 11/30/1952 - 12/01/1987 Smokeless Tobacco: Never Alcohol Use Standard Drinks/Week Comments Yes 0 (1 standard drink = 0.6 oz pur e alcohol) socially Sex and Gender Information Value Date Recorded Sex Assigned at Not on file Legal Sex Male 3:37 AM BUSINESS APPLICATIONS SPECIALIST Gender Identity Not on file Sexual Orientation Not on file Occupation Industry Job Start Date Job End Date Not on file Not on file Not on file Not on file documented as of this encounter Plan of Treatment Not on file documented as of this encounter Procedures Procedure Name Priority Date/Time Associated Diagnosis Comments MAGNESIUM LEVEL Routine 08/02/2020 1:10 PM BUSINESS APPLICATIONS SPECIALIST documented in this encounter Results * MAGNESIUM LEVEL (08/02/2020 1:10 PM BUSINESS APPLICATIONS SPECIALIST) MAGNESIUM 2.2 1.6 - 2.4 mg/dL 08/02/2020 7:25 PM BUSINESS APPLICATIONS SPECIALIST [facility] [employer] [facility] Blood Collection / Unknown 08/02/2020 1:10 PM BUSINESS APPLICATIONS SPECIALIST 08/02/2020 7:10 PM BUSINESS APPLICATIONS SPECIALIST us Luis Angel Gavin MD CHEMISTRY ORDERABLES Final Res ult [facility] [address] [place] [address] documented in this encounter Visit Diagnoses Not on filedocumented in this encounter Care Teams Hoop Riveting Machine Operator Helper Relationship Specialty Start Date End Date Nellie Joe FNP [address] [place] [address] PCP - General Nurse Practitioner Family 03/07/20 documented as of this encounter
--- OUTSIDE RECORDS SUMMARY | 2025-08-11 18:23 | XMS_ITS | Encounter Summary ---
Author Organization [facility] Address [address] [place] [address] Care Team Providers Care Staff Therapist Name Role Phone Nellie Joe Primary Care Provider [phone] Encounter Details Date Type Department Care Team (Late Contact [facility]) Description 09/23/2005 Outpatient Historical [facility] Neurology [address], [address] [place] [address] Social History Tobacco Use Types Packs/Day Years Used Date Smoking Tobacco: Never Assessed Sex and Gender Information Value Date Recorded Sex Assigned at Not on file Legal Sex Male 3:37 AM ROUSTABOUT PUSHER Gender Identity Not on file Sexual Orientation Not on file documented as of this encounter Plan of Treatment Not on file documented as of this encounter Visit Diagnoses Not on filedocumented in this encounter Care Teams Staff Therapist Relationship Specialty Start Date End Date Nellie Joe FNP [address] [place] [address] PCP - General Nurse Practitioner Family 03/07/20 documented as of this encounter
--- OUTSIDE RECORDS SUMMARY | 2025-08-11 18:23 | XMS_ITS | Encounter Summary ---
Author Organization [facility] Address [address] [place] [address] Care Team Providers Care Lgsw Name Role Phone Nellie Joe Primary Care Provider Encounter Details Date Type Department Care Team (Latest Contact Info) Description 10/16/2005 Outpatient Historical [facility] [address] [place] [address] [place] [address] [address] Tomás Garcia MD NO ADDRESS ON FILE CARPAL TUNNEL SYNDROME (Primary Dx) Social History Tobacco Use Types Packs/Day Years Used Date Smoking Tobacco: Never Assessed Sex and Gender Information Value Date Recorded Sex Assigned at Not on file Legal Sex Male 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
--- OUTSIDE RECORDS SUMMARY | 2025-08-11 18:23 | XMS_ITS | Encounter Summary ---
Author Organization [facility] Address [address] [place] [address] Care Team Providers Care Utility Systems Repairer Operator Name Role Phone Nellie Joe Primary Care Provider [phone] Encounter Details Date Type Department Care Team (Latest Contact Info) Description 01/21/2005 Outpatient Historical [facility] [address] [place] [phone] Lavell Beaulieu MD [address] [facility] [address] [place] [address] PRECORDIAL PAIN (Primary Dx) Social History Tobacco Use Types Packs/Day Years Used Date Smoking Tobacco: Never Assessed Sex and Gender Information Value Date Recorded Sex Assigned at Not on file Legal Sex Male 3:37 AM INTERMEDIATE ACCOUNTANT Gender Identity Not on file Sexual Orientation Not on file documented as of this encounter Plan of Treatment Not on file documented as of this encounter Visit Diagnoses Diagnosis Precordial pain- Primary documented in this encounter Care Teams Utility Systems Repairer Operator Relationship Specialty Start Date End Date Nellie Joe FNP [address] [place] [phone] PCP - General Nurse Practitioner Family 03/07/20 documented as of this encounter
--- OUTSIDE RECORDS SUMMARY | 2025-08-11 18:23 | XMS_ITS | Encounter Summary ---
Author Organization [facility] Address [address] [place] [address] Care Team Providers Care Cut Off Tender Glass Name Role Phone Nellie Joe Primary Care Provider [phone] Encounter Details Date Type Department Care Team (Latest Contact Info) Description 02/12/2005 Outpatient Historical [facility] PreAdmission [place] [address] [place] [address] [place] [phone] Kyle Magaña MD NO ADDRESS ON FILE PREOP EXAM OTHER SPECIFIED (Primary Dx) Social History Tobacco Use Types Packs/Day Years Used Date Smoking Tobacco: Never Assessed Sex and Gender Information Value Date Recorded Sex Assigned at Not on file Legal Sex Male 3:37 AM TAX REVENUE OFFICER Gender Identity Not on file Sexual Orientation Not on file documented as of this encounter Plan of Treatment Not on file documented as of this encounter Visit Diagnoses Diagnosis Other specified pre-operative examination- Primary documented in this encounter Care Teams Cut Off Tender Glass Relationship Specialty Start Date End Date Nellie Joe FNP [address] [place] [phone] PCP - General Nurse Practitioner Family 03/07/20 documented as of this encounter
--- OUTSIDE RECORDS SUMMARY | 2025-08-11 18:23 | XMS_ITS | Encounter Summary ---
Author Organization [facility] Address [address] [place] [address] Care Team Providers Care River [place] Soundings Group Leader Name Role Phone Nellie Joe Primary Care Provider [phone] Encounter Details Date Type Department Care Team (Latest Contact Info) Description 10/28/2005 Outpatient Historical [facility] Orthopedics- [address] [place] [place] [address] Tomás Garcia MD NO ADDRESS ON FILE Carpal Tunnel Syndrome (Primary Dx) Social History Tobacco Use Types Packs/Day Years Used Date Smoking Tobacco: Never Assessed Sex and Gender Information Value Date Recorded Sex Assigned at Not on file Legal Sex Male 3:37 AM SMOKING TOBACCO CUTTER OPERATOR Gender Identity Not on file Sexual Orientation Not on file documented as of this encounter Plan of Treatment Not on file documented as of this encounter Visit Diagnoses Diagnosis Carpal tunnel syndrome- Primary documented in this encounter Care Teams [place] Soundings Group Leader Relationship Specialty Start Date End Date Nellie Joe FNP [address] [place] [address] PCP - General Nurse Practitioner Family 03/07/20 documented as of this encounter
--- OUTSIDE RECORDS SUMMARY | 2025-08-11 18:23 | XMS_ITS | Encounter Summary ---
Author Organization [facility] Address [address] [place] [address] Care Team Providers Care Bailing Machine Operator Name Role Phone Nellie Joe Primary Care Provider [phone] Encounter Details Date Type Department Care Team (Latest Contact Info) Description 09/15/2005 Outpatient Historical [facility] Neurology [address], [address] [place] [address] Tereza Oates MD [address] [place] [address] Pain in limb (Primary Dx); CERVICALGIA Social History Tobacco Use Types Packs/Day Years Used Date Smoking Tobacco: Never Assessed Sex and Gender Information Value Date Recorded Sex Assigned at Not on file Legal Sex Male 3:37 AM WIRER PASSENGER CAR Gender Identity Not on file Sexual Orientation Not on file documented as of this encounter Plan of Treatment Not on file documented as of this encounter Visit Diagnoses Diagnosis Pain in limb- Primary Pain in soft tissues of limb Cervicalgia documented in this encounter Care Teams Bailing Machine Operator Relationship Specialty Start Date End Date Nellie Joe FNP [address] [place] [phone] PCP - General Nurse Practitioner Family 03/07/20 documented as of this encounter
--- OUTSIDE RECORDS SUMMARY | 2025-08-11 18:23 | XMS_ITS | Encounter Summary ---
Author Organization [facility] Address [address] [facility] [place] [address] Care Team Providers Care Roller Inspector And Mender Name Role Phone Nellie Joe Primary Care Provider [phone] Encounter Details Date Type Department Care Team (Latest Contact Info) Description 09/23/2005 Outpatient Historical [facility] Imaging Services [place] [address] [place] [address] Tereza Oates MD [address] [address] CERVICALGIA (Primary Dx) Social History Tobacco Use Types Packs/Day Years Used Date Smoking Tobacco: Never Assessed Sex and Gender Information Value Date Recorded Sex Assigned at Not on file Legal Sex Male 3:37 AM EXHAUSTER ENGINEER Gender Identity Not on file Sexual Orientation Not on file documented as of this encounter Plan of Treatment Not on file documented as of this encounter Visit Diagnoses Diagnosis Cervicalgia- Primary documented in this encounter Care Teams Roller Inspector And Mender Relationship Specialty Start Date End Date Nellie Joe FNP [address] [place] [phone] PCP - General Nurse Practitioner Family 03/07/20 documented as of this encounter
--- OUTSIDE RECORDS SUMMARY | 2025-08-11 18:23 | XMS_ITS | Encounter Summary ---
Author Organization [facility] Address [address] [place] [address] Care Team Providers Care Orchestra Leader Name Role Phone Nellie Joe Primary Care Provider [phone] Encounter Details Date Type Department Care Team (Latest Contact Info) Description 01/28/2005 Outpatient Historical [facility] Cardiology- [place] [address] [place] [address] Luis Angel Beaulieu MD NO ADDRESS ON FILE ANGINA PECTORIS NEC/NOS (Primary Dx); HYPERTENSION NOS; Pure hypercholesterolem Social History Tobacco Use Types Packs/Day Years Used Date Smoking Tobacco: Never Assessed Sex and Gender Information Value Date Recorded Sex Assigned at Not on file Legal Sex Male 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
--- OUTSIDE RECORDS SUMMARY | 2025-08-11 18:23 | XMS_ITS | Encounter Summary ---
Author Organization [facility] Address [address] [place] [address] Care Team Providers Care Malt House Kiln Operator Name Role Phone Nellie Joe Primary Care Provider [phone] Encounter Details Date Type Department Care Team (Latest Contact Info) Description 12/23/2005 Outpatient Historical [facility] Orthopedics- [address] [place] [address] Tomás Garcia MD NO ADDRESS ON FILE Carpal Tunnel Syndrome (Primary Dx) Social History Tobacco Use Types Packs/Day Years Used Date Smoking Tobacco: Never Assessed Sex and Gender Information Value Date Recorded Sex Assigned at Not on file Legal Sex Male 3:37 AM CUSTOMER SUCCESS ASSOCIATE Gender Identity Not on file Sexual Orientation Not on file documented as of this encounter Plan of Treatment Not on file documented as of this encounter Visit Diagnoses Diagnosis Carpal tunnel syndrome- Primary documented in this encounter Care Teams Malt House Kiln Operator Relationship Specialty Start Date End Date Nellie Joe FNP [address] [place] [address] PCP - General Nurse Practitioner Family 03/07/20 documented as of this encounter
--- OUTSIDE RECORDS SUMMARY | 2025-08-11 18:23 | XMS_ITS | Encounter Summary ---
Author Organization [facility] Address [address] [place] [address] Care Team Providers Care Header Boss Name Role Phone Nellie Joe Primary Care Provider [phone] Encounter Details Date Type Department Care Team (Latest Contact Info) Description 09/30/2005 Outpatient Historical [facility] Orthopedics- [address] [place] 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
--- OUTSIDE RECORDS SUMMARY | 2025-08-11 18:23 | XMS_ITS | Encounter Summary ---
Author Organization [facility] Address [address] [place] [address] Care Team Providers Care Clinical Manager Name Role Phone Nellie Joe Primary Care Provider [phone] Encounter Details Date Type Department Care Team (Latest Contact Info) Description 02/12/2005 Outpatient Historical [facility] Cardiac Thoracic Vascular Surg [place] [address] [place] [address] Chuckie Crenshaw MD NO ADDRESS ON FILE CORON ATHEROSCL [place] CORON VESSEL (Primary Dx) Social History Tobacco Use Types Packs/Day Years Used Date Smoking Tobacco: Never Assessed Sex and Gender Information Value Date Recorded Sex Assigned at Not on file Legal Sex Male 3:37 AM HHAS Gender Identity Not on file Sexual Orientation Not on file documented as of this encounter Plan of Treatment Not on file documented as of this encounter Visit Diagnoses Diagnosis Coronary atherosclerosis of [place] coronary artery- Primary documented in this encounter Care Teams Clinical Manager Relationship Specialty Start Date End Date Nellie Joe FNP [address] [place] [address] PCP - General Nurse Practitioner Family 03/07/20 documented as of this encounter
--- OUTSIDE RECORDS SUMMARY | 2025-08-11 18:23 | XMS_ITS | Encounter Summary ---
Author Organization [facility] Address [address] [place] [address] Care Team Providers Care Senior Cobol Developer Name Role Phone Nellie Joe CHEMIST STEROIDS Primary Care Provider Encounter Details Date Type Department Care Team (Latest Contact Info) Description 02/04/2005 Outpatient Historical [facility] Cardiac Reinforced Concrete Inspector [address] [place] [address] Luis Angel Beaulieu MD NO ADDRESS ON FILE CORON ATHEROSCL [place] CORON VESSEL (Primary Dx) Social History Tobacco Use Types Packs/Day Years Used Date Smoking Tobacco: Never Assessed Sex and Gender Information Value Date Recorded Sex Assigned at Not on file Legal Sex Male 3:37 AM CAT OPERATOR Gender Identity Not on file Sexual Orientation Not on file documented as of this encounter Plan of Treatment Not on file documented as of this encounter Procedures Procedure Name Priority Date/Time Associated Diagnosis Comments PT AND APTT Routine 02/04/2005 10:11 AM CDT CBC WITHOUT DIFFERENTIAL Routine 02/04/2005 10:11 AM CDT BASIC METABOLIC PANEL Routine 02/04/2005 10:11 AM CDT documented in this encounter Results * PT AND APTT (02/04/2005 10:11 AM CDT) PROTIME 14.1 12.4 - 14.9 Secs INTERFACE SYSTEM Comment: As of 04 note change in normal range. INR 1.0 INTERFACE SYSTEM Comment: Expected Values for INR: DVT/PE Goal INR 2.5; range 2.0 - 3.0 Valve Replacement Tissue Goal INR 2.5; range 2.0 - 3.0 Mechanical Goal INR 3.0; range 2.5 - 3.5 POST-IN Goal INR 2.5; range 2.0 - 3.0 or Goal 3.0; range 2.5 - 3.5 Atrial Fibrillation Goal INR 2.5; range 2.0 - 3.0 Ischemic Stroke Goal INR 2.5; range 2.0 - 3.0 For additional information see Guidelines for Anticoagulation available from the pharmacy [facility]. PTT 30.8 24.3 - 37.5 Secs INTERFACE SYSTEM Comment:Therapeutic Range: 02/04/2005 10:1 1 AM CDT Luis Angel Beaulieu MD HEMATOLOGY ORDERABLES Final Re sult INTERFACE SYSTEM Refer to clinic/hospital department * CBC WITHOUT DIFFERENTIAL (02/04/2005 10:11 AM CDT) WBC 8.9 4.8 - 10.8 K/ul INTERFACE SYSTEM RBC 5.33 4.60 - 6.20 Mil/ul INTERFACE SYSTEM HEMOGLOBIN 15.6 14.0 - 18.0 g/dL INTERFACE SYSTEM HEMATOCRIT 48.0 41.0 - 53.0 % INTERFACE SYSTEM MCV 90.1 84.0 - 103.0 Fl INTERFACE SYSTEM MCH 29.3 27.0 - 34.0 pg INTERFACE SYSTEM MCHC 32.5 30.0 - 35.0 g/dL INTERFACE SYSTEM RDW 12.4 11.0 - 14.5 % INTERFACE SYSTEM PLATELETS 214 140 - 440 K/ul INTERFACE SYSTEM MPV 11.5 8.9 - 12.8 Fl INTERFACE SYSTEM NEUTROPHILS 63.9 42.2 - 75.2 % INTERFACE SYSTEM LYMPHOCYTES 26.5 24.0 - 44.0 % INTERFACE SYSTEM MONOCYTES 6.8 2.0 - 10.0 % INTERFACE SYSTEM EOSINOPHILS 2.4 0.0 - 7.0 % INTERFACE SYSTEM BASOPHILS 0.4 0.0 - 1.0 % INTERFACE SYSTEM NEUTROPHIL ABSOLUTE 5.7 2.0 - 8.0 K/uL INTERFACE SYSTEM LYMPHOCYTE ABSOLUTE 2.4 1.2 - 4.0 K/ul INTERFACE SYSTEM MONOCYTE ABSOLUTE 0.6 0.1 - 0.6 K/ul INTERFACE SYSTEM EOSINOPHIL ABSOLUTE 0.2 0.0 - 0.7 K/ul INTERFACE SYSTEM BASOPHILS ABSOLUTE 0.0 0.0 - 0.2 K/ul INTERFACE SYSTEM 02/04/2005 10:1 1 AM CDT Luis Angel Beaulieu MD HEMATOLOGY ORDERABLES Final Re sult Performing Organization Address [facility] Co de Phone Number INTERFACE SYSTEM Refer to clinic/hospital department * BASIC METABOLIC PANEL (02/04/2005 10:11 AM CDT) GLUCOSE 86 70 - 110 mg/dL INTERFACE SYSTEM BUN 17 9 - 20 mg/dL INTERFACE SYSTEM CREATININE 0.9 0.7 - 1.5 mg/dL INTERFACE SYSTEM SODIUM 142 136 - 145 mEq/L INTERFACE SYSTEM POTASSIUM 3.9 3.5 - 5.0 mEq/L INTERFACE SYSTEM CHLORIDE 105 95 - 110 mEq/L INTERFACE SYSTEM CO2 26 22 - 32 mmol/l INTERFACE SYSTEM ANION GAP 15 9 - 20 mEq/L INTERFACE SYSTEM OSMOLALITY, CALCULATED 292 275 - 295 mOsm/Kg INTERFACE SYSTEM CALCIUM 8.6 8.4 - 10.5 mg/dL INTERFACE SYSTEM 02/04/2005 10:1 1 AM CDT Luis Angel Beaulieu MD CHEMISTRY ORDERABLES Final Res ult Performing Organization Address City/[facility] Co de Phone Number INTERFACE SYSTEM Refer to clinic/hospital department documented in this encounter Visit Diagnoses Diagnosis Coronary atherosclerosis of [place] coronary artery- Primary documented in this encounter Care Teams Senior Cobol Developer Relationship Specialty Start Date End Date Nellie Joe FNP [address] [place] [phone] PCP - General Nurse Practitioner Family 03/07/20 documented as of this encounter
--- OUTSIDE RECORDS SUMMARY | 2025-08-11 18:23 | XMS_ITS | Encounter Summary ---
Author Organization [facility] Address [address] [place] [address] Care Team Providers Care Political Worker Name Role Phone Nellie Joe Primary Care Provider [phone] Encounter Details Date Type Department Care Team (Latest Contact Info) Description 09/23/2005 Outpatient Historical [facility] Neurology [address], [address] [place] [address] Tereza Oates MD [address] [place] [address] Skin sensation disturb (Primary Dx); Pain in limb Social History Tobacco Use Types Packs/Day Years Used Date Smoking Tobacco: Never Assessed Sex and Gender Information Value Date Recorded Sex Assigned at Not on file Legal Sex Male 3:37 AM TOOLMAN Gender Identity Not on file Sexual Orientation Not on file documented as of this encounter Plan of Treatment Not on file documented as of this encounter Visit Diagnoses Diagnosis Skin sensation disturb- Primary Disturbance of skin sensation Pain in limb Pain in soft tissues of limb documented in this encounter Care Teams Political Worker Relationship Specialty Start Date End Date Nellie Joe FNP [address] [place] [phone] PCP - General Nurse Practitioner Family 03/07/20 documented as of this encounter
--- OUTSIDE RECORDS SUMMARY | 2025-08-11 18:23 | XMS_ITS | Encounter Summary ---
Author Organization [facility] Address [address] [place] [address] Care Team Providers Care Paper Machine Tender Name Role Phone Nellie Joe MAURA Primary Care Provider [phone] Reason for Referral * Radiology Services (Routine) - Closed Specialty Diagnoses / Procedures Referred By Mian bains Referred To Contact Diagnoses Lumbar radiculitis Procedures XR FLUORO NEEDLE GUIDANCE SPINE Marty Alvarez MD [address] [place] [address] Phone: tel: fax: Referral ID Status Reason Start Date Expiration Date Visits Re quested Visits Authorized [id number] Closed 03/27/2020 04/27/2021 1 1 Encounter Details Date Type Department Care Team (Late st Contact Info) Description 03/27/2020 Ancillary Orders [facility] Pain Management Procedures [place] [address] [place] [address] Marty Alvarez MD [address] [place] [address] Lumbar radiculitis Social History Tobacco Use Types Packs/Day Years Used Date Smoking Tobacco: Former Cigarettes 1 35 0 11/30/1952 - 12/01/1987 Smokeless Tobacco: Never Alcohol Use Standard Drinks/Week Comments Yes 0 (1 standard drink = 0.6 oz pur e alcohol) socially Sex and Gender Information Value Date Recorded Sex Assigned at Not on file Legal Sex Male 3:37 AM MANAGER DRUG Gender Identity Not on file Sexual Orientation Not on file Occupation Industry Job Start Date Job End Date Not on file Not on file Not on file Not on file COVID-19 Exposure Response Date Recorded In the last month, have you been in contact with someone who was confirmed or suspected to have Coronavirus / COVID-19? No / Unsure 03/27/2020 8:36 AM CDT documented as of this encounter Plan of Treatment Not on file documented as of this encounter Results * XR FLUORO NEEDLE GUIDANCE SPINE (03/27/2020 9:25 AM CDT) Narrative 03/27/2020 9:27 AM CDT Order information only. Exam was auto-finalized. us Marty Alvarez MD DIAGNOSTIC IMAGING ORDERAB LES Final Result documented in this encounter Visit Diagnoses Diagnosis Lumbar radiculitis Thoracic or lumbosacral neuritis or radiculitis, unspecified Lumbar radiculitis Thoracic or lumbosacral neuritis or radiculitis, unspecified documented in this encounter Care Teams Paper Machine Tender Relationship Specialty Start Date End Date Nellie Joe FNP [address] [place] [address] PCP - General Nurse Practitioner Family 03/07/20 documented as of this encounter
--- OUTSIDE RECORDS SUMMARY | 2025-08-11 18:23 | XMS_ITS | Clinical Summary ---
Author Organization [facility] Address [address] [facility] Attn: Epic Prelude ADT MEGAN SCHNEIDER [address] Care Team Providers Care [employer] Compliance Internship Name Role Phone Nellie Joe TELEPHONE AD TAKER Primary Care Provider [phone] Allergies Active Allergy Reactions Criticality Noted Date Comments Latex Hives High 09/30/2022 Medications gabapentin (NEURONTIN) 400 mg capsule TAKE 1 CAPSULE BY MOUTH THREE TIMES DAILY 270 Capsule 2 11/09/2019 Active Miscellaneous Medical Supply Seated wheeled walker. 1 Each 0 01/25/2019 Active baclofen (LIORESAL) 10 mg tablet TAKE 1 TABLET BY MOUTH THREE TIMES DAILY NEEDED FOR PAIN 270 Tablet 1 08/31/2019 Active Miscellaneous Medical Supply Wheeled seated walker. 1 Each 0 04/13/2019 Active nitroglycerin (NITROSTAT) 0.4 mg Tablet, Sublingual Place 1 Tablet (0.4 mg) under tongue every 5 minutes as needed for Chest Pain. 25 Tablet 2 12/16/2017 Active carvediloL (COREG) 25 mg tablet Take 0.5 Tablet (12.5 mg) by mouth every 12 hours. 30 Tablet 11 05/07/2016 Active magnesium oxide (MAG-OX) 400 mg (241.3 mg magnesium) tablet Take 400 mg by mouth daily. 08/02/2015 Active furosemide (LASIX) 20 mg tabletIndicatio ns:NSTEMI (non-ST elevated myocardial infarction) (CMS/HCC) Take 1 Tablet (20 mg) by mouth 2 times daily. 90 Tablet 3 10/08/2022 Active atorvastatin (LIPITOR) 40 mg tablet Take 1 Tablet (40 mg) by mouth daily at bedtime. 30 Tablet 3 10/07/2022 Active docusate sodium (COLACE) 100 mg capsule Take 1 Capsule (100 mg) by mouth 2 times daily. 30 Capsule 3 10/07/2022 Active hydrophilic wound dressing (TRIAD) Apply to affected area 2 times daily. 71 Gram 1 10/07/2022 Active pantoprazole (PROTONIX) 40 mg Tablet, Delayed Release (E.C.) Take 1 Tablet (40 mg) by mouth 2 times daily. 60 Tablet 1 10/07/2022 Active sertraline (ZOLOFT) 25 mg tablet Take 1 Tablet (25 mg) by mouth daily. 30 Tablet 1 10/08/2022 Active lisinopriL (PRINIVIL) 2.5 mg tablet Take 1 Tablet (2.5 mg) by mouth daily. 30 Tablet 11 05/05/2023 Active miconazole (ELIOT COPELAND R EMEDY AF) 2 % Cream Apply to affected area 2 times daily. 92 Gram 06/08/2023 Active spironolactone (ALDACTONE) 25 mg tablet Take 0.5 Tablets (12.5 mg) by mouth daily. 45 Tablet 06/16/2024 Active Eliquis 5 mg tablet Take 1 tablet by mouth twice daily 60 Tablet 11/13/2024 Active Active Problems Problem Noted Date Diagnosed Date Bleeding from wound 10/31/2023 History of atrial fibrillation 10/30/2023 Shingles 10/30/2023 Activity of daily living alteration 10/30/2023 Generalized weakness 10/30/2023 Decreased oral intake 10/30/2023 Leukocytosis 06/03/2023 TIMBO (acute kidney injury) 06/03/2023 CKD (chronic kidney disease) stage 3, GFR 30-59 ml/min 06/03/2023 Chronic diastolic heart fail ure with preserved ejection fraction 10/04/2022 Atrial fibrillation with rapid ventricular respo nse 10/02/2022 Acute on chronic combined sy stolic and diastolic CHF (congestive heart failure) 10/02/2022 Encephalopathy acute 09/30/2022 COPD (chronic obstructive pulmonary disease) 03/2023 Acute respiratory failure with hypoxia and hyper capnia 09/30/2022 Acute kidney injury superimposed on CKD 09/30/19 23 Severe sepsis without septic shock 09/30/2022 Diabetes mellitus with hyperglycemia 09/30/2022 Decubitus ulcer of buttock, stage 4 09/30/2022 Acute on chronic heart failure 09/30/2022 Severe left ventricular systolic dysfunction 08/2018 Dyslipidemia 12/21/2018 Pseudophakia of both eyes 06/21/2018 Regular astigmatism of both eyes 06/21/2018 History of coronary artery stent placement 12/20 Arthritis of both knees 12/11/2016 Chronic pain of both knees 12/01/2016 Morbid obesity with body mass index of 40.0-49.9 06/01/2016 Neuroforaminal stenosis of spine 12/03/2015 DDD (degenerative disc disease), lumbar 12/03/19 16 Lumbar facet arthropathy 12/03/2015 Spinal stenosis of lumbar re gion with neurogenic claudication 12/03/2015 Overview (12/19/2020): severe L4-5; moderate L5S1 Lumbar radiculitis 12/03/2015 Obese 03/29/2015 Overview (12/19/2020): Body mass index is 37.12 kg/(m^2). Old DC (myocardial infarction) 09/20/2014 Stroke 07/06/2014 Overview (12/19/2020): Atherosclerotic, Atheroemoblic Subacute right pontine infarction. NIHSS 2 on admission. 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 Mild stenoses involving the proximal internal carotid arteries bilaterally, as well as the distal cervical segment of the left internal carotid artery. 2. Severe long segment stenosis involving the proximal right vertebral artery. 3. Multifocal stenoses involving the left vertebral artery, including severe stenosis of the mid cervical segment and intracranial segment. ASHD (arteriosclerotic heart disease) 11/03/2013 CHF (congestive heart failure) Essential hypertension S/P CABG (coronary artery bypass graft) Borderline blood pressure Resolved Problems Problem Noted Date Diagnosed Date Resolved Date Dehydration 10/31/2023 11/04/2023 Pseudophakia, left eye 05/17/201806/21 Symptomatic bradycardia 12/03/2015 05/0 08/2018 PVC (premature ventricular contraction) 04/05/2015 12/21/2018 Ventricular bigeminy 04/05/2015 019 Acute exacerbation of CHF (c ongestive heart failure) 03/22/2015 12/21/2018 Unstable angina 09/28/2014 12/21/2018 Systolic congestive heart fa ilure, NYHA class 3 09/28/2014 12/21/2018 Abnormal stress test 09/28/2014 019 S/P coronary artery stent placement 09/28/2014 12/21/2018 Overview (12/18/2020): 09/28/14 drug eluting stent placement to saphenous vein graft to diagonal NSTEMI (non-ST elevated myoc ardial infarction) 11/03/2013 12/21/2018 Overview (12/18/2020): Effient stopped, changed to clopidogrel (per Dr Gilmore and Dr Greyson Segovia) due to an acute stroke 07/06/2014. Hypertension, uncontrolled 11/03/2013 0 12/21/2018 Coronary artery disease invo lving barrow coronary artery without angina pectoris 12/21/2018 Encounters Date Type Department Care Team Description 06/26/2025 External Device Data STL ABSTRACTION Provider, Abstract from Last 3 Months Immunizations Immunization Administration Dates Next Due (PREVNAR 13)(6 WKS UP) PNEUM OCOCCAL CONJUGATE (PCV13) 0.5 ML, IM 04/02/2015 Family History Medical History Relation Name Comments Heart Attack Brother 1 Hypertension Brother 2 Heart Attack Father Hypertension Father Cancer Mother Hypertension Mother Heart Disease Other family hx Relation Name Status Comments Brother 1 Brother 2 Father Mother Other family hx Alive Social History Tobacco Use Types Packs/Day Years Used Date Smoking Tobacco: Former Cigarettes 1 Q uit: 12/01/1987 Smokeless Tobacco: Never Tobacco Cessation:Counseling Given: Not Answered Alcohol Use Standard Drinks/Week Comments Yes 0 (1 standard drink = 0.6 oz pur e alcohol) Feeling Safe Answer Date Recorded Are you in a relationship wi th someone who hurts you emotionally and/or physically? 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 Gender Identity Not on file Sexual Orientation Not on file Last Filed Vital Signs Vital Sign Reading Time Taken Comments Blood Pressure 148/71 11/03/2023 6:54 AM CDT Pulse 76 11/03/2023 6:54 AM CDT Temperature 36.2 C (97.1 F) 11/03/2023 6:54 AM CDT Respiratory Rate 18 11/03/2023 6:54 AM CDT Oxygen Saturation 96% 11/03/2023 6:54 AM CDT Inhaled Oxygen Concentration - - Weight 139.5 kg (307 lb 8.7 oz) 11/03/2023 4:54 AM CDT Height 177.8 cm (5' 10 ) 10/31/2023 6:00 AM CDT Body Mass Index 44.13 10/31/2023 6:00 AM CDT Plan of Treatment Health Maintenance Due Date Last Done Comments DIABETES ANNUAL FOOT EXAM 1968 DIABETES MICROALBUMIN ANNUAL SCREEN 1968 COLORECTAL SCREENING 1995 Colorectal Cancer Screening 1995 FIT-DNA Q 3 years 1995 FIT/FOBT Q 1 year 1995 Flex Sig/CT Colonography Q 5 years 1995 ZOSTER VACCINE (1 of 2) 2000 DIABETES ANNUAL RETINAL EXAM 05/17/2019, 05/17/2018, 05/17/2018, Additional history exists DIABETES HBA1C Q 6 MONTHS 11/15/2023 05/17/2023, 02/2015 LDL CHOLESTEROL ANNUAL 03/12/2024 03/12/2023 RSV VACCINE (60+ or ) (1 - 1-dose 75+ series) 2025 INFLUENZA VACCINE (#1) 2025 COVID-19 Vaccine (3 - 2024-2 6 season) 2025 02/17/2021, 01/20/2021 DTAP/TDAP/TD VACCINES (2 - T d or Tdap) 02/02/2027 02/02/2017 PNEUMOCOCCAL VACCINE 50+ YEARS Completed 1 , 06/14/2015, 04/02/2015 Medical Devices Implanted Type Area Teacher Resource Device Identifier Shelf Expiration Date Model / Serial / Lot Lens Io Tecnis 1pc 23.0 [id number] - [id number] Implanted:Qty: 1 on 05/03/2018 by Aung Rubi MD Eye Right: Eye [employer] 01/20/2022 [id number] / [id number] / Lens Io Tecnis 1pc 22.0 [id number] - [id number] Implanted:Qty: 1 on 05/17/2018 by Aung Rubi MD Eye Left: Eye [employer] 01/07/2022 [id number] / [id number] / Hemostatic Gelfoam Powder 1gm [id number] - Sn/A Implanted:Qty: 1 on 08/29/2016 by Allen Mckeon MD Hemostatic N/A: Spine Lumbar PFIZER- PHARM 12/20/2018 [id number] / N/A / [id number] Hemostatic Gelfoam Spng 12-7mm [id number] - Csc - Sn/A Implanted:Qty: 1 on 08/29/2016 by Allen Mckeon MD Hemostatic N/A: Spine Lumbar PFIZER- PHARM 01/20/2019 [id number] / N/A / [id number] Ring Vein Marking 10mm [id number] - [id number] Implanted:Qty: 1 on 04/01/2015 by Gabriela Cardenas MD Other Heart [facility]LEX- [facility] P [id number] / / Description:load #[id number] Procedures Procedure Name Priority Date/Time Associated Diagnosis Comments LIPID PANEL Routine 03/12/2023 11:41 AM CDT Coronary artery disease involving barrow coronary artery of barrow heart without angina pectoris HEMOGLOBIN A1C Routine 03/29/2015 6:19 AM CDT from Last 3 Months or Most Recently Relevant to Health Maintenance Results * LIPID PANEL (03/12/2023 11:41 AM CDT) ABSTRACTED CHOLESTEROL 118 EXTERNAL LAB ABSTRACTED TRIGLYCERIDE 112 EXTERNAL LAB ABSTRACTED HDL 26 EXTERNAL LAB ABSTRACTED LDL CALCULATED 70 EXTERNAL LAB Blood 03/12/2023 11:4 1 AM CDT Alejandro Bailey MD CHEMISTRY ORDERABLES Final Result Performing Organization Address City/[facility]/ZIP Co de Phone Number EXTERNAL LAB * HEMOGLOBIN A1C (03/29/2015 6:19 AM CDT) Pathologist [facility] HEMOGLOBIN A1C 5.7 4.0 - 6.0 %A1C 03/29/2015 1:37 PM CDT [facility] TCM Bertha [facility] Comment: This test was performed on a [employer] II Instrument using HPLC methodology. Blood 03/29/2015 6:19 AM CDT Narrative [facility] - 03/29/2015 1:37 PM CDT From am lab From am lab Radha Montero [facility] CHEMISTRY ORDERABLES Fin al Result Performing Organization Address City/[facility]/ZIP Co de Phone Number [facility] CLIA# [id number] [address] [place] [address] [facility] CLIA # [id number] [address] [facility] [place] [address] from Last 3 Months or Most Recently Relevant to Health Maintenance Insurance [facility] [id number] Advance Directives For more information, please contact: [phone] * Full Code (Latest Code Status on File) Date Activated Date Inactivated Comments 10/31/2023 1:55 PM 11/03/2023 7:21 PM * NO CPR (In Event of Cardiopulmonary Arrest) Date Activated Date Inactivated Comments 10/30/2023 10:56 PM 10/31/2023 1:55 PM Question Answer Comments Mechanical Ventilation (for respiratory distress) - Invasive (i.e. intubation): No Mechanical Ventilation (for respiratory distress) - Non-Invasive (i.e. BiPAP, CPAP): Yes * Full Code Date Activated Date Inactivated Comments 06/03/2023 10:55 PM 06/08/2023 6:10 PM * Full Code Date Activated Date Inactivated Comments 09/30/2022 3:19 PM 10/07/2022 4:43 PM Care Teams [employer] Compliance Internship Relationship Specialty Start Date End Date Nellie Joe FNP [address] [place] [phone] PCP - General Nurse Practitioner Family 03/07/20
--- OUTSIDE RECORDS SUMMARY | 2025-08-11 18:23 | XMS_ITS | Clinical Summary ---
Author Organization [facility] Address [address] [place] [address] Phone Care Team Providers Care Gold Leaf Roller Name Role Phone Nellie Joe MAURA Primary Care Provider [phone] Allergies No known active allergies Medications atorvastatin (LIPITOR) 40 mg tablet Take 1 Tab by mouth daily. 30 Tab 0 07/07/2014 Active magnesium oxide (MAG-OX) 400 mg tablet Take 400 mg by mouth daily. Active carvedilol (COREG) 25 mg tablet Take 0.5 Tablet (12.5 mg) by mouth every 12 hours. 30 Tablet 11 05/07/2016 Active furosemide (LASIX) 20 mg tabletIndicatio ns:NSTEMI (non-ST elevated myocardial infarction) (CMS/HCC) Take 1 Tablet (20 mg) by mouth daily. 90 Tablet 3 11/19/2017 Active nitroglycerin (NITROSTAT) 0.4 mg Tablet, Sublingual Place 1 Tablet (0.4 mg) under tongue every 5 minutes as needed for Chest Pain. 25 Tablet 2 12/16/2017 Active meloxicam (MOBIC) 15 mg tablet Take 15 mg by mouth daily at bedtime. Active lisinopril (PRINIVIL) 40 mg tablet TAKE 1 TABLET BY MOUTH ONCE DAILY 90 Tablet 3 11/22/2018 Active Miscellaneous Medical Supply Seated wheeled walker. 1 Each 01/25/2019 Active Miscellaneous Medical Supply Wheeled seated walker. 1 Each 04/13/2019 Active baclofen (LIORESAL) 10 mg tablet TAKE 1 TABLET BY MOUTH THREE TIMES DAILY NEEDED FOR PAIN 270 Tablet 1 08/31/2019 Active gabapentin (NEURONTIN) 400 mg capsule TAKE 1 CAPSULE BY MOUTH THREE TIMES DAILY 270 Capsule 2 11/09/2019 Active Active Problems Problem Noted Date Diagnosed Date Severe left ventricular systolic dysfunction 08/2018 Dyslipidemia 12/21/2018 Pseudophakia of both eyes 06/21/2018 Regular astigmatism of both eyes 06/21/2018 History of coronary artery stent placement 12/20 Arthritis of both knees 12/11/2016 Chronic pain of both knees 12/01/2016 Morbid obesity with body mass index of 40.0-49.9 06/01/2016 Neuroforaminal stenosis of spine 12/03/2015 Lumbar facet arthropathy 12/03/2015 DDD (degenerative disc disease), lumbar 12/03/19 16 Lumbar radiculitis 12/03/2015 Spinal stenosis of lumbar re gion with neurogenic claudication 12/03/2015 Overview (12/03/2015): severe L4-5; moderate L5S1 Obese 03/29/2015 Overview (03/29/2015): Body mass index is 37.12 kg/(m^2). Old OK (myocardial infarction) 09/20/2014 Stroke 07/06/2014 Overview (07/06/2014): Atherosclerotic, Atheroemoblic Subacute right pontine infarction. NIHSS 2 on admission. 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 Mild stenoses involving [...] Problem Noted Date Diagnosed Date Resolved Date Pseudophakia, left eye 05/17/201806/21 Symptomatic bradycardia 12/03/2015 0508/2018 PVC (premature ventricular contraction) 04/05/2015 12/21/2018 Ventricular bigeminy 04/05/2015 019 Acute exacerbation of CHF (c ongestive heart failure) 03/22/2015 12/21/2018 Unstable angina 09/28/2014 12/21/2018 Systolic congestive heart fa ilure, NYHA class 3 09/28/2014 12/21/2018 Abnormal stress test 09/28/2014 019 S/P coronary artery stent placement 09/28/2014 12/21/2018 Overview (09/28/2014): 09/28/14 drug eluting stent placement to saphenous vein graft to diagonal NSTEMI (non-ST elevated myoc ardial infarction) 11/03/2013 12/21/2018 Overview (07/06/2014): Effient stopped, changed to clopidogrel (per Dr Gimlore and Dr Greyson Segovia) due to an acute stroke 07/06/2014. 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 Gender Identity Not on file Sexual Orientation Not on file Occupation Industry Job Start Date Job End Date Not on file Not on file Not on file Not on file Last Filed Vital Signs Vital Sign Reading Time Taken Comments Blood Pressure 126/60 05/29/2020 12:08 PM CDT Pulse 66 05/29/2020 10:11 AM CDT Temperature 36.3 C (97.3 F) 05/29/2020 9:40 AM CDT Respiratory Rate 22 05/29/2020 10:11 AM CDT Oxygen Saturation 99% 05/29/2020 10:11 AM CDT Inhaled Oxygen Concentration - - Weight 124.7 kg (275 lb) 05/29/2020 12:08 PM CDT Height 177.8 cm (5' 10 ) 05/29/2020 12:08 PM CDT Body Mass Index 39.46 05/29/2020 12:08 PM CDT Plan of Treatment Health Maintenance Due Date Last Done Comments DTAP/TDAP/TD VACCINES (1 - Tdap) 1969 COLORECTAL SCREENING 1995 Colorectal Cancer Screening 1995 FIT-DNA Q 3 years 1995 FIT/FOBT Q 1 year 1995 Flex Sig/CT Colonography Q 5 years 1995 ZOSTER VACCINE (1 of 2) 2000 PNEUMOCOCCAL VACCINE 50+ YEA RS (2 of 2 - PCV20 or PCV21) 04/02/2016 04/02/2015 RSV VACCINE (60+ or ) (1 - 1-dose 75+ series) 2025 INFLUENZA VACCINE (#1) 2025 Medical Devices Implanted Type Area Trials Manager Device Identifier Shelf Expiration Date Model / Serial / Lot Lens Io Tecnis 1pc 23.0 [id number] - [id number] Implanted:Qty: 1 on 05/03/2018 by Aung Rubi MD at [facility] Right: Eye [employer] 01/20/2022 [id number] / [id number] / Lens Io Tecnis 1pc 22.0 [id number] - [id number] Implanted:Qty: 1 on 05/17/2018 by Aung Rubi MD at [facility] Left: Eye [employer] 01/07/2022 [id number] / [id number] / Hemostatic Gelfoam Powder 1gm [id number] - Sn/A Implanted:Qty: 1 on 08/29/2016 by Allen Mckeon MD at [facility] Hemostatic N/A: Spine Lumbar PFIZER- PHARM 12/20/2018 [id number] / N/A / [id number] Hemostatic Gelfoam Spng 12-7mm [id number] - Csc - Sn/A Implanted:Qty: 1 on 08/29/2016 by Allen Mckeon MD at [facility] Hemostatic N/A: Spine Lumbar PFIZER- PHARM 01/20/2019 [id number] / N/A / [id number] Ring Vein Marking 10mm [id number] - [id number] Implanted:Qty: 1 on 04/01/2015 by Gabriela Cardenas MD at [facility] Other Heart TELEFLEX- PILL WECK MIGUEL L P [id number] / / Description:[facility] #[id number] Insurance UHC DUAL COMPLETE [facility] PPO D-SNP Advance Directives For more information, please contact: [phone] * Full Code (Latest Code Status on File) Date Activated Date Inactivated Comments 05/17/2018 6:58 AM 05/17/2018 10:39 AM * Full Code Date Activated Date Inactivated Comments 05/03/2018 8:12 AM 05/03/2018 11:30 AM * Full Code Date Activated Date Inactivated Comments 08/29/2016 9:13 AM 08/30/2016 1:13 PM * Full Code Date Activated Date Inactivated Comments 08/27/2016 6:56 AM 08/29/2016 9:13 AM * Full Code Date Activated Date Inactivated Comments 04/01/2015 5:43 PM 04/06/2015 1:23 PM Care Teams Gold Leaf Roller Relationship Specialty Start Date End Date Nellie Joe FNP [address] [place] [address] PCP - General Nurse Practitioner Family 03/07/20
--- OUTSIDE RECORDS SUMMARY | 2025-08-11 18:23 | XMS_ITS | Encounter Summary ---
Author Organization [facility] Address [address] [place] [address] Care Team Providers Care Coffee Grinder Name Role Phone Nellie Joe Primary Care Provider Encounter Details Date Type Department Care Team (Latest Contact Info) Description 08/14/2005 Outpatient Historical [facility] [address] 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
--- OUTSIDE RECORDS SUMMARY | 2025-08-11 18:23 | XMS_ITS | Encounter Summary ---
Author Organization [facility] Address [address] [place] [address] Care Team Providers Care Cognos Tm1 Developer Name Role Phone Nellie Joe Primary Care Provider [phone] Encounter Details Date Type Department Care Team (Latest Contact Info) Description 11/25/2005 Outpatient Historical [facility] Orthopedics- 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
--- OUTSIDE RECORDS SUMMARY | 2025-08-11 18:24 | XMS_ITS | Encounter Summary ---
Author Organization [facility] Address [address] [place] [address] Care Team Providers Care Tire Specialist Name Role Phone Nellie Joe Primary Care Provider [phone] Encounter Details Date Type Department Care Team (Latest Contact Info) Description 04/21/2005 Outpatient Historical [facility] Cardiology- [place] [address] [place] [phone] Luis Angel Beaulieu MD NO ADDRESS ON FILE CORON ATHEROSCL [place] CORON VESSEL (Primary Dx); HYPERTENSION NOS; Pure hypercholesterolem Social History Tobacco Use Types Packs/Day Years Used Date Smoking Tobacco: Never Assessed Sex and Gender Information Value Date Recorded Sex Assigned at Not on file 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
--- OUTSIDE RECORDS SUMMARY | 2025-08-11 18:24 | XMS_ITS | Encounter Summary ---
Author Organization [facility] Address [address] [facility] [place] [address] Care Team Providers Care Gis Web Developer Name Role Phone Nellie Joe MAURA Primary Care Provider Encounter Details Date Type Department Care Team (Late st Contact Info) Description 02/13/2005 Inpatient Historical [facility] IN BED Kyle Magaña MD NO ADDRESS ON FILE CORON ATHEROSCL [place] CORON VES[place] (Primary Dx) Social History Tobacco Use Types Packs/Day Years Used Date Smoking Tobacco: Never Assessed Sex and Gender Information Value Date Recorded Sex Assigned at Not on file 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 Gender Identity Not on file Sexual Orientation Not on file documented as of this encounter Plan of Treatment Not on file documented as of this encounter Procedures Procedure Name Priority Date/Time Associated Diagnosis Comments POC GLUCOSE Routine 02/17/2005 11:46 AM CDT POC GLUCOSE Routine 02/17/2005 6:23 AM CDT CBC WITH DIFFERENTIAL Routine 02/17/2005 5:24 AM CDT POC GLUCOSE Routine 02/16/2005 8:32 PM CDT POC GLUCOSE Routine 02/16/2005 5:20 PM CDT POC GLUCOSE Routine 02/16/2005 12:37 PM CDT POC GLUCOSE Routine 02/16/2005 6:00 AM CDT POC GLUCOSE Routine 02/15/2005 8:57 PM CDT POC GLUCOSE Routine 02/15/2005 6:06 PM CDT POC GLUCOSE Routine 02/15/2005 1:05 PM CDT CBC WITH DIFFERENTIAL Routine 02/15/2005 5:39 AM CDT BASIC METABOLIC PANEL Routine 02/15/2005 5:39 AM CDT POC GLUCOSE Routine 02/15/2005 5:25 AM CDT POC GLUCOSE Routine 02/14/2005 9:19 PM CDT POC GLUCOSE Routine 02/14/2005 5:36 PM CDT POC GLUCOSE Routine 02/14/2005 12:01 PM CDT POC GLUCOSE Routine 02/14/2005 7:28 AM CDT POC GLUCOSE Routine 02/14/2005 5:49 AM CDT CBC WITHOUT DIFFERENTIAL Routine 02/14/2005 3:29 AM CDT BASIC METABOLIC PANEL Routine 02/14/2005 3:29 AM CDT POC GLUCOSE Routine 02/14/2005 2:17 AM CDT POC GLUCOSE Routine 02/14/2005 12:36 AM CDT POC GLUCOSE Routine 02/13/2005 9:38 PM CDT POC GLUCOSE Routine 02/13/2005 8:29 PM CDT POC GLUCOSE Routine 02/13/2005 7:27 PM CDT POC GLUCOSE Routine 02/13/2005 6:12 PM CDT POC BLOOD GAS, LYTES AND H+H Routine 02/13/2005 4:52 PM CDT POC GLUCOSE Routine 02/13/2005 2:00 PM CDT POC BLOOD GAS, LYTES AND H+H Routine 02/13/2005 1:11 PM CDT POC GLUCOSE Routine 02/13/2005 1:06 PM CDT documented in this encounter Results * (ABNORMAL) POC GLUCOSE (02/17/2005 11:46 AM CDT) GLUCOSE POC 109(H) 60 - 100 mg/dL INTERFACE SYSTEM 02/17/2005 11:4 6 AM CDT us Kyle Magaña MD POINT OF CARE TESTING Final Resu lt Performing Organization Address [facility] de Phone Number INTERFACE SYSTEM Refer to clinic/hospital department * POC GLUCOSE (02/17/2005 6:23 AM CDT) GLUCOSE POC 94 60 - 100 mg/dL INTERFACE SYSTEM 02/17/2005 6:23 AM CDT us Kyle Magaña MD POINT OF CARE TESTING Final Resu lt Performing Organization Address [facility] de Phone Number INTERFACE SYSTEM Refer to clinic/hospital department * (ABNORMAL) CBC WITH DIFFERENTIAL (02/17/2005 5:24 AM CDT) WBC 9.8 4.8 - 10.8 K/ul INTERFACE SYSTEM RBC 3.23(L) 4.60 - 6.20 Mil/ul INTERFACE SYSTEM HEMOGLOBIN 9.2(L) 14.0 - 18.0 g/dL INTERFACE SYSTEM HEMATOCRIT 28.5(L) 41.0 - 53.0 % INTERFACE SYSTEM MCV 88.2 84.0 - 103.0 Fl INTERFACE SYSTEM MCH 28.5 27.0 - 34.0 pg INTERFACE SYSTEM MCHC 32.3 30.0 - 35.0 g/dL INTERFACE SYSTEM RDW 12.7 11.0 - 14.5 % INTERFACE SYSTEM PLATELETS 191 140 - 440 K/ul INTERFACE SYSTEM MPV 11.0 8.9 - 12.8 Fl INTERFACE SYSTEM NEUTROPHILS 76.4(H) 42.2 - 75.2 % INTERFACE SYSTEM LYMPHOCYTES 11.3(L) 24.0 - 44.0 % INTERFACE SYSTEM MONOCYTES 8.9 2.0 - 10.0 % INTERFACE SYSTEM EOSINOPHILS 3.2 0.0 - 7.0 % INTERFACE SYSTEM BASOPHILS 0.2 0.0 - 1.0 % INTERFACE SYSTEM NEUTROPHIL ABSOLUTE 7.5 2.0 - 8.0 K/uL INTERFACE SYSTEM LYMPHOCYTE ABSOLUTE 1.1(L) 1.2 - 4.0 K/ul INTERFACE SYSTEM MONOCYTE ABSOLUTE 0.9(H) 0.1 - 0.6 K/ul INTERFACE SYSTEM EOSINOPHIL ABSOLUTE 0.3 0.0 - 0.7 K/ul INTERFACE SYSTEM BASOPHILS ABSOLUTE 0.0 0.0 - 0.2 K/ul INTERFACE SYSTEM PERIPHERAL BLOOD SMEAR REVIEW Automated Diff INTERFACE SYSTEM 02/17/2005 5:24 AM CDT us Kyle Magaña MD HEMATOLOGY ORDERABLES Final Resu lt Performing Organization Address [facility] de Phone Number INTERFACE SYSTEM Refer to clinic/hospital department * (ABNORMAL) POC GLUCOSE (02/16/2005 8:32 PM CDT) GLUCOSE POC 118(H) 60 - 100 mg/dL INTERFACE SYSTEM 02/16/2005 8:32 PM CDT us Kyle Magaña MD POINT OF CARE TESTING Final Resu lt Performing Organization Address [facility] de Phone Number INTERFACE SYSTEM Refer to clinic/hospital department * (ABNORMAL) POC GLUCOSE (02/16/2005 5:20 PM CDT) GLUCOSE POC 105(H) 60 - 100 mg/dL INTERFACE SYSTEM 02/16/2005 5:20 PM CDT us Kyle Magaña MD POINT OF CARE TESTING Final Resu lt Performing Organization Address [facility] de Phone Number INTERFACE SYSTEM Refer to clinic/hospital department * (ABNORMAL) POC GLUCOSE (02/16/2005 12:37 PM CDT) GLUCOSE POC 117(H) 60 - 100 mg/dL INTERFACE SYSTEM 02/16/2005 12:3 7 PM CDT us Kyle Magaña MD POINT OF CARE TESTING Final Resu lt Performing Organization Address [facility] Phone Number INTERFACE SYSTEM Refer to clinic/hospital department * (ABNORMAL) POC GLUCOSE (02/16/2005 6:00 AM CDT) GLUCOSE POC 113(H) 60 - 100 mg/dL INTERFACE SYSTEM 02/16/2005 6:00 AM CDT us Kyle Magaña MD POINT OF CARE TESTING Final Resu lt Performing Organization Address [facility] Phone Number INTERFACE SYSTEM Refer to clinic/hospital department * POC GLUCOSE (02/15/2005 8:57 PM CDT) GLUCOSE POC 97 60 - 100 mg/dL INTERFACE SYSTEM 02/15/2005 8:57 PM CDT us Kyle Magaña MD POINT OF CARE TESTING Final Resu lt Performing Organization Address [facility] Phone Number INTERFACE SYSTEM Refer to clinic/hospital department * (ABNORMAL) POC GLUCOSE (02/15/2005 6:06 PM CDT) GLUCOSE POC 108(H) 60 - 100 mg/dL INTERFACE SYSTEM 02/15/2005 6:06 PM CDT us Kyle Magaña MD POINT OF CARE TESTING Final Resu lt Performing Organization Address [facility] de Phone Number INTERFACE SYSTEM Refer to clinic/hospital department * (ABNORMAL) POC GLUCOSE (02/15/2005 1:05 PM CDT) GLUCOSE POC 114(H) 60 - 100 mg/dL INTERFACE SYSTEM 02/15/2005 1:05 PM CDT Kyle Magaña MD POINT OF CARE TESTING Final Resu lt Performing Organization Address City/State/[facility] Co de Phone Number INTERFACE SYSTEM Refer to clinic/hospital department * (ABNORMAL) CBC WITH DIFFERENTIAL (02/15/2005 5:39 AM CDT) WBC 16.5(H) 4.8 - 10.8 K/ul INTERFACE SYSTEM RBC 3.11(L) 4.60 - 6.20 Mil/ul INTERFACE SYSTEM HEMOGLOBIN 9.0(L) 14.0 - 18.0 g/dL INTERFACE SYSTEM HEMATOCRIT 28.4(L) 41.0 - 53.0 % INTERFACE SYSTEM MCV 91.3 84.0 - 103.0 Fl INTERFACE SYSTEM MCH 28.9 27.0 - 34.0 pg INTERFACE SYSTEM MCHC 31.7 30.0 - 35.0 g/dL INTERFACE SYSTEM RDW 12.9 11.0 - 14.5 % INTERFACE SYSTEM PLATELETS 135(L) 140 - 440 K/ul INTERFACE SYSTEM MPV 10.7 8.9 - 12.8 Fl INTERFACE SYSTEM NEUTROPHILS 83.4(H) 42.2 - 75.2 % INTERFACE SYSTEM LYMPHOCYTES 6.4(L) 24.0 - 44.0 % INTERFACE SYSTEM MONOCYTES 9.7 2.0 - 10.0 % INTERFACE SYSTEM EOSINOPHILS 0.3 0.0 - 7.0 % INTERFACE SYSTEM BASOPHILS 0.2 0.0 - 1.0 % INTERFACE SYSTEM NEUTROPHIL ABSOLUTE 13.8(H) 2.0 - 8.0 K/uL INTERFACE SYSTEM LYMPHOCYTE ABSOLUTE 1.1(L) 1.2 - 4.0 K/ul INTERFACE SYSTEM MONOCYTE ABSOLUTE 1.6(H) 0.1 - 0.6 K/ul INTERFACE SYSTEM EOSINOPHIL ABSOLUTE 0.1 0.0 - 0.7 K/ul INTERFACE SYSTEM BASOPHILS ABSOLUTE 0.0 0.0 - 0.2 K/ul INTERFACE SYSTEM PERIPHERAL BLOOD SMEAR REVIEW Automated Diff INTERFACE SYSTEM 02/15/2005 5:39 AM CDT Klye Magaña MD HEMATOLOGY ORDERABLES Final Resu lt Performing Organization Address City/[facility] Phone Number INTERFACE SYSTEM Refer to clinic/hospital department * (ABNORMAL) BASIC METABOLIC PANEL (02/15/2005 5:39 AM CDT) GLUCOSE 125(H) 70 - 110 mg/dL INTERFACE SYSTEM BUN 22(H) 9 - 20 mg/dL INTERFACE SYSTEM CREATININE 1.3 0.7 - 1.5 mg/dL INTERFACE SYSTEM SODIUM 134(L) 136 - 145 mEq/L INTERFACE SYSTEM POTASSIUM 4.3 3.5 - 5.0 mEq/L INTERFACE SYSTEM CHLORIDE 104 95 - 110 mEq/L INTERFACE SYSTEM CO2 26 22 - 32 mmol/l INTERFACE SYSTEM ANION GAP 8(L) 9 - 20 mEq/L INTERFACE SYSTEM OSMOLALITY, CALCULATED 282 275 - 295 mOsm/Kg INTERFACE SYSTEM CALCIUM 7.9(L) 8.4 - 10.5 mg/dL INTERFACE SYSTEM 02/15/2005 5:39 AM CDT us Kyle Magaña MD CHEMISTRY ORDERABLES Final Resul t Performing Organization Address [facility] Phone Number INTERFACE SYSTEM Refer to clinic/hospital department * (ABNORMAL) POC GLUCOSE (02/15/2005 5:25 AM CDT) GLUCOSE POC 142(H) 60 - 100 mg/dL INTERFACE SYSTEM 02/15/2005 5:25 AM CDT us Kyle Magaña MD POINT OF CARE TESTING Final Resu lt Performing Organization Address [facility] Phone Number INTERFACE SYSTEM Refer to clinic/hospital department * (ABNORMAL) POC GLUCOSE (02/14/2005 9:19 PM CDT) GLUCOSE POC 132(H) 60 - 100 mg/dL INTERFACE SYSTEM 02/14/2005 9:19 PM CDT us Kyle Magaña MD POINT OF CARE TESTING Final Resu lt Performing Organization Address [facility] Phone Number INTERFACE SYSTEM Refer to clinic/hospital department * (ABNORMAL) POC GLUCOSE (02/14/2005 5:36 PM CDT) GLUCOSE POC 133(H) 60 - 100 mg/dL INTERFACE SYSTEM 02/14/2005 5:36 PM CDT Result Lu Magaña MD POINT OF CARE TESTING Final Resu Performing Organization Address [facility] Phone Number INTERFACE SYSTEM Refer to clinic/hospital department * (ABNORMAL) POC GLUCOSE (02/14/2005 12:01 PM CDT) GLUCOSE POC 128(H) 60 - 100 mg/dL INTERFACE SYSTEM 02/14/2005 12:0 1 PM CDT us Kyle Magaña MD POINT OF CARE TESTING Final [facility] Performing Organization Address [facility] Phone Number INTERFACE SYSTEM Refer to clinic/hospital department * (ABNORMAL) POC GLUCOSE (02/14/2005 7:28 AM CDT) GLUCOSE POC 116(H) 60 - 100 mg/dL INTERFACE SYSTEM 02/14/2005 7:28 AM CDT us Kyle Magaña MD POINT OF CARE TESTING Final [facility] Performing Organization Address [facility] Phone Number INTERFACE SYSTEM Refer to clinic/hospital department * (ABNORMAL) POC GLUCOSE (02/14/2005 5:49 AM CDT) GLUCOSE POC 133(H) 60 - 100 mg/dL INTERFACE SYSTEM 02/14/2005 5:49 AM CDT Result Lu Magaña MD POINT OF CARE TESTING Final Resu Performing Organization Address [facility] Phone Number INTERFACE SYSTEM Refer to clinic/hospital department * (ABNORMAL) CBC WITHOUT DIFFERENTIAL (02/14/2005 3:29 AM CDT) WBC 15.4(H) 4.8 - 10.8 K/ul INTERFACE SYSTEM RBC 3.88(L) 4.60 - 6.20 Mil/ul INTERFACE SYSTEM HEMOGLOBIN 11.1(L) 14.0 - 18.0 g/dL INTERFACE SYSTEM HEMATOCRIT 34.7(L) 41.0 - 53.0 % INTERFACE SYSTEM MCV 89.4 84.0 - 103.0 Fl INTERFACE SYSTEM MCH 28.6 27.0 - 34.0 pg INTERFACE SYSTEM MCHC 32.0 30.0 - 35.0 g/dL INTERFACE SYSTEM RDW 12.6 11.0 - 14.5 % INTERFACE SYSTEM PLATELETS 181 140 - 440 K/ul INTERFACE SYSTEM MPV 11.0 8.9 - 12.8 Fl INTERFACE SYSTEM NEUTROPHILS 82.7(H) 42.2 - 75.2 % INTERFACE SYSTEM LYMPHOCYTES 8.9(L) 24.0 - 44.0 % INTERFACE SYSTEM MONOCYTES 8.0 2.0 - 10.0 % INTERFACE SYSTEM EOSINOPHILS 0.1 0.0 - 7.0 % INTERFACE SYSTEM BASOPHILS 0.3 0.0 - 1.0 % INTERFACE SYSTEM NEUTROPHIL ABSOLUTE 12.7(H) 2.0 - 8.0 K/uL INTERFACE SYSTEM LYMPHOCYTE ABSOLUTE 1.4 1.2 - 4.0 K/ul INTERFACE SYSTEM MONOCYTE ABSOLUTE 1.2(H) 0.1 - 0.6 K/ul INTERFACE SYSTEM EOSINOPHIL ABSOLUTE 0.0 0.0 - 0.7 K/ul INTERFACE SYSTEM BASOPHILS ABSOLUTE 0.1 0.0 - 0.2 K/ul INTERFACE SYSTEM 02/14/2005 3:29 AM CDT us Kyle Magaña MD HEMATOLOGY ORDERABLES Final Resu lt INTERFACE SYSTEM Refer to clinic/hospital department * (ABNORMAL) BASIC METABOLIC PANEL (02/14/2005 3:29 AM CDT) GLUCOSE 110 70 - 110 mg/dL INTERFACE SYSTEM BUN 13 9 - 20 mg/dL INTERFACE SYSTEM CREATININE 0.9 0.7 - 1.5 mg/dL INTERFACE SYSTEM SODIUM 140 136 - 145 mEq/L INTERFACE SYSTEM POTASSIUM 4.0 3.5 - 5.0 mEq/L INTERFACE SYSTEM CHLORIDE 106 95 - 110 mEq/L INTERFACE SYSTEM CO2 27 22 - 32 mmol/l INTERFACE SYSTEM ANION GAP 11 9 - 20 mEq/L INTERFACE SYSTEM OSMOLALITY, CALCULATED 289 275 - 295 mOsm/Kg INTERFACE SYSTEM CALCIUM 8.0(L) 8.4 - 10.5 mg/dL INTERFACE SYSTEM 02/14/2005 3:29 AM CDT us Kyle Magaña MD CHEMISTRY ORDERABLES Final Resul t Performing Organization Address [facility] Phone Number INTERFACE SYSTEM Refer to clinic/hospital department * (ABNORMAL) POC GLUCOSE (02/14/2005 2:17 AM CDT) GLUCOSE POC 121(H) 60 - 100 mg/dL INTERFACE SYSTEM 02/14/2005 2:17 AM CDT us Kyle Magaña MD POINT OF CARE TESTING Final Resu lt Performing Organization Address [facility] Phone Number INTERFACE SYSTEM Refer to clinic/hospital department * (ABNORMAL) POC GLUCOSE (02/14/2005 12:36 AM CDT) GLUCOSE POC 152(H) 60 - 100 mg/dL INTERFACE SYSTEM 02/14/2005 12:3 6 AM CDT us Kyle Magaña MD POINT OF CARE TESTING Final Resu lt Performing Organization Address [facility] Phone Number INTERFACE SYSTEM Refer to clinic/hospital department * (ABNORMAL) POC GLUCOSE (02/13/2005 9:38 PM CDT) GLUCOSE POC 114(H) 60 - 100 mg/dL INTERFACE SYSTEM 02/13/2005 9:38 PM CDT us Kyle Magaña MD POINT OF CARE TESTING Final Resu lt Performing Organization Address [facility] Phone Number INTERFACE SYSTEM Refer to clinic/hospital department * (ABNORMAL) POC GLUCOSE (02/13/2005 8:29 PM CDT) GLUCOSE POC 105(H) 60 - 100 mg/dL INTERFACE SYSTEM 02/13/2005 8:29 PM CDT us Kyle Magaña MD POINT OF CARE TESTING Final Resu lt Performing Organization Address [facility] de Phone Number INTERFACE SYSTEM Refer to clinic/hospital department * (ABNORMAL) POC GLUCOSE (02/13/2005 7:27 PM CDT) GLUCOSE POC 139(H) 60 - 100 mg/dL INTERFACE SYSTEM 02/13/2005 7:27 PM CDT Kyle Magaña MD POINT OF CARE TESTING Final Resu lt Performing Organization Address [facility] de Phone Number INTERFACE SYSTEM Refer to clinic/hospital department * (ABNORMAL) POC GLUCOSE (02/13/2005 6:12 PM CDT) GLUCOSE POC 158(H) 60 - 100 mg/dL INTERFACE SYSTEM 02/13/2005 6:12 PM CDT Kyle Magaña MD POINT OF CARE TESTING Final Resu lt Performing Organization Address [facility] de Phone Number INTERFACE SYSTEM Refer to clinic/hospital department * (ABNORMAL) POC ISTAT EG 7+ (02/13/2005 4:52 PM CDT) SPECIMEN TYPE Arterial INTERF DOYLE SYSTEM Comment:PEEP: 03 FIO2 40 INTERFACE SYSTEM TEMPERATURE 100.5 DegC INTERFAC E SYSTEM PH 7.42 7.35 - 7.45 Unit INTERFACE SYSTEM PH TEMP CORRECT 7.41 7.35 - 7.45 Unit INTERFACE SYSTEM PCO2 POC 32(L) 35 - 45 mmHg INTERFACE SYSTEM PCO2 TEMP CORRECT 34(L) 35 - 45 mmHg INTERFACE SYSTEM PO2 117(H) 80 - 105 mmHg INTERFACE SYSTEM PO2 TEMP CORRECT 123(H) 80 - 105 mmHg INTERFACE SYSTEM HCO3 (CALC) POC 20.9(L) 22.0 - 26.0 mmol/l INTERFACE SYSTEM BASE EXCESS -4(L) -2 - 3 mmol/l INTERFACE SYSTEM HEMOGLOBIN POC 10.2(L) 13.5 - 18.0 g/dL INTERFACE SYSTEM HEMATOCRIT ABG 30(L) 38 - 51 % INTER FACE SYSTEM O2 SATURATION 99(H) 95 - 98 % INTERF DOYLE SYSTEM TCO2 (CALC) POC 22(L) 23 - 27 mmol/l INTERFACE SYSTEM SODIUM 140 138 - 146 mEq/L INTERFACE SYSTEM POTASSIUM 4.0 3.5 - 4.9 mEq/L INTERFACE SYSTEM CALCIUM IONIZED 1.03(L) 1.12 - 1.32 mmol/l INTERFACE SYSTEM 02/13/2005 4:52 PM CDT us Kyle Magaña MD POINT OF CARE TESTING COM Final Result Performing Organization Address [facility] de Phone Number INTERFACE SYSTEM Refer to clinic/hospital department * (ABNORMAL) POC GLUCOSE (02/13/2005 2:00 PM CDT) GLUCOSE POC 120(H) 60 - 100 mg/dL INTERFACE SYSTEM 02/13/2005 2:00 PM CDT us Kyle Magaña MD POINT OF CARE TESTING Final Resu lt Performing Organization Address [facility] Phone Number INTERFACE SYSTEM Refer to clinic/hospital department * (ABNORMAL) POC ISTAT EG 7+ (02/13/2005 1:11 PM CDT) SPECIMEN TYPE Arterial INTERF DOYLE SYSTEM Comment: Tidal volume: 800 PEEP: 05 Rate: 10 Pulse OX: 100 FIO2 60 INTERFACE SYSTEM TEMPERATURE 97.6 DegC INTERFAC E SYSTEM PH 7.37 7.35 - 7.45 Unit INTERFACE SYSTEM PH TEMP CORRECT 7.38 7.35 - 7.45 Unit INTERFACE SYSTEM PCO2 POC 43 35 - 45 mmHg INTERFACE SYSTEM PCO2 TEMP CORRECT 42 35 - 45 mmHg INTERFACE SYSTEM PO2 108(H) 80 - 105 mmHg INTERFACE SYSTEM PO2 TEMP CORRECT 104 80 - 105 mmHg INTERFACE SYSTEM HCO3 (CALC) POC 24.7 22.0 - 26.0 mmol/l INTERFACE SYSTEM BASE EXCESS -1 -2 - 3 mmol/l INTERFACE SYSTEM HEMOGLOBIN POC 10.9(L) 13.5 - 18.0 g/dL INTERFACE SYSTEM HEMATOCRIT ABG 32(L) 38 - 51 % INTER FACE SYSTEM O2 SATURATION 98 95 - 98 % INTERF DOYLE SYSTEM TCO2 (CALC) POC 26 23 - 27 mmol/l INTERFACE SYSTEM SODIUM 141 138 - 146 mEq/L INTERFACE SYSTEM POTASSIUM 4.1 3.5 - 4.9 mEq/L INTERFACE SYSTEM CALCIUM IONIZED 1.09(L) 1.12 - 1.32 mmol/l INTERFACE SYSTEM 02/13/2005 1:11 PM CDT us Kyle Magaña MD POINT OF CARE TESTING COM Final Result Performing Organization Address [facility] de Phone Number INTERFACE SYSTEM Refer to clinic/hospital department * (ABNORMAL) POC GLUCOSE (02/13/2005 1:06 PM CDT) GLUCOSE POC 122(H) 60 - 100 mg/dL INTERFACE SYSTEM 02/13/2005 1:06 PM CDT us Kyle Magaña MD POINT OF CARE TESTING Final Resu lt Performing Organization Address [facility] Phone Number INTERFACE SYSTEM Refer to clinic/hospital department documented in this encounter Visit Diagnoses Diagnosis Coronary atherosclerosis of [place] coronary artery- Primary documented in this encounter Care Teams Gis Web Developer Relationship Specialty Start Date End Date Nellie Joe FNP [address] [place] [address] PCP - General Nurse Practitioner Family 03/07/20 documented as of this encounter
--- OUTSIDE RECORDS SUMMARY | 2025-08-11 18:24 | XMS_ITS | Encounter Summary ---
Author Organization [facility] Address [address] [place] [address] Care Team Providers Care Telephone Answerer Name Role Phone Nellie Joe Primary Care Provider [phone] Encounter Details Date Type Department Care Team (Latest Contact Info) Description 2005 Outpatient Historical [facility] Cardiac Thoracic Vascular Surg [place] [address] [place] [id number] Kyle Magaña MD NO ADDRESS ON FILE CORONARY ATHEROSCLER UNSPEC VESSEL (Primary Dx) Social History Tobacco Use Types Packs/Day Years Used Date Smoking Tobacco: Never Assessed Sex and Gender Information Value Date Recorded Sex Assigned at Not on file 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
--- NOTE | 2025-08-11 19:03 | CTR_ITS ---
PROCEDURE INFORMATION: Exam: CT Abdomen And Pelvis Without Contrast Exam date and time: 08/11/2025 7:31 PM Age: 75 years old Clinical indication: Prior surgery; Surgery date: 6+ months; Surgery type: Cabg; C/O constipation; Additional info: Prev constipation with now sounding obstipation TECHNIQUE: Imaging protocol: Computed tomography of the abdomen and pelvis without contrast. Radiation optimization: All CT scans at this facility use at least one of these dose optimization techniques: automated exposure control; mA and/or kV adjustment per patient size (includes targeted exams where dose is matched to clinical indication); or iterative reconstruction. COMPARISON: CT abdomen pelvis wo con [id number] 07/20/2020 6:04 AM RADIATION DOSE METRICS: Total DLP (mGy-cm): 1530.93 FINDINGS: Lungs: Limited evaluation of the lower thorax demonstrates subsegmental atelectasis in the posterior dependent aspect of the lower lobes. Liver: Liver is unremarkable. Gallbladder and biliary ducts: Gallbladder is unremarkable. Pancreas: The pancreas is unremarkable. Spleen: Spleen is normal in size. Adrenal glands: Adrenal glands are unremarkable. Kidneys and ureters: No evidence of renal stones or hydronephrosis. Renal artery calcification noted. Small stable right renal cysts. Stomach and bowel: Bowel loops are nondilated. No evidence of bowel obstruction. A lipoma noted in the wall of the gastric antrum. Moderate stool burden in rectum. Diverticulosis coli. No evidence of acute diverticulitis. Appendix: No evidence of appendicitis. Intraperitoneal space: No ascites. No free air. No significant fluid collection. Vasculature: Infrarenal abdominal aortic aneurysm measuring 4.4 cm. There is diffuse atherosclerotic calcification of the aorta and the iliac arteries. IVC filter seen. Lymph nodes: Unremarkable. No enlarged lymph nodes. Urinary bladder: Urinary bladder unremarkable. Reproductive: Coarse calcification seen in the prostate gland. Bones/joints: Degenerative changes seen involving the spine and both hip joints. Soft tissues: Small fat containing left inguinal hernia. Small fat containing umbilical hernia. CT/CT abdomen pelvis wo con [id number] IMPRESSION: 1. Moderate stool burden in the rectum. No evidence of bowel obstruction. 2. Diverticulosis coli. No evidence of acute diverticulitis. 3. Abdominal aortic aneurysm. COMMENTS: For patients with an IVC filter, recommend assessment for a management plan for the patient's IVC filter. If there is no established management plan, recommend referral to an interventional clinician on a nonemergent basis for evaluation.
--- NOTE | 2025-08-11 19:03 | XRR_ITS ---
PROCEDURE INFORMATION: Exam: XR Chest Exam date and time: 08/11/2025 7:26 PM Age: 75 years old Clinical indication: Pain; Chest pressure; Prior surgery; Surgery date: 6+ months; Surgery type: Cabg, stents; Additional info: Cp TECHNIQUE: Imaging protocol: Radiologic exam of the chest. Views: 1 view. COMPARISON: CR XR chest 1V portable [id number] 08/25/2020 9:49 AM FINDINGS: Lungs: No evidence of airspace consolidation pulmonary edema. Pleural spaces: No evidence of pleural effusion. Biapical pleural thickening noted. Heart/Mediastinum: Normal heart size. Bones/joints: Sternotomy wires are seen. XR/XR chest 1V portable [id number] IMPRESSION: No acute abnormality identified.
--- NOTE | 2025-08-11 19:03 | CTR_ITS ---
PROCEDURE INFORMATION: Exam: CT Head Without Contrast Exam date and time: 08/11/2025 7:28 PM Age: 75 years old Clinical indication: Syncope and collapse; EMS arrival for syncopal episode. ; Additional info: Syncope, AMS TECHNIQUE: Imaging protocol: Computed tomography of the head without contrast. 281 image(s) are submitted. Radiation optimization: All CT scans at this facility use at least one of these dose optimization techniques: automated exposure control; mA and/or kV adjustment per patient size (includes targeted exams where dose is matched to clinical indication); or iterative reconstruction. COMPARISON: CT head wo con* [id number] 07/20/2020 5:59 AM RADIATION DOSE METRICS: Total DLP (mGy-cm): 930.83 FINDINGS: Brain: No change since previous study with chronic inferior left cerebellar stroke. No acute intracranial hemorrhage, mass effect or hydrocephalus, unchanged. Cerebral ventricles: See Brain finding. Paranasal sinuses: Visualized sinuses are unremarkable. No fluid levels. Mastoid air cells: Visualized mastoid air cells are well aerated. Bones: Unremarkable. No acute fracture. Soft tissues: Unremarkable. CT/CT head wo con* [id number] IMPRESSION: No change since previous study with chronic inferior left cerebellar stroke. No acute intracranial hemorrhage, mass effect or hydrocephalus, unchanged.
[2025-08-11 19:36] LABS: Hematocrit 45.0 % (37-53); Hemoglobin 14.30 g/dL (11.27-16.99); Mean Corpuscular HGB Conc 31.8 g/dL (30-55); Mean Corpuscular Hemoglobin 27.6 pg (27-33); Mean Corpuscular Volume 86.7 fl (82-101); Nucleated Red Blood Cells % 0 %; Platelet Count 253 10^3/cmm (157-399); Red Blood Count 5.19 10^6/uL (3.85-5.65); White Blood Count 19.50 10^3/uL (3.29-11.43)
--- NOTE | 2025-08-11 19:39 | W.ED.SYNCOPE ---
HPI - Syncope General: Chief Complaint: Syncope Stated Complaint: syncope Time Seen by Provider: 08/11/25 18:16 History of Present Illness: Patient is a 75-year-old male with past medical history of CHF, CAD, hypertension, HLD, COPD who presents to the ED with a syncopal episode. Patient's brother is currently staying with him, they were watching TV on the couch when the patient had a coughing spell and then seemingly short of breath, then seemingly had a syncopal episode and so called EMS. Lately, he has been constipated but he was given milk of magnesia today and then seemingly had 4 bowel movements. Patient complains of no abdominal pain now, no recent fevers, chills, diaphoresis, urinary issues. Patient's is alert and oriented x 2 at baseline, fluctuating, has a home health nurse that helps him with most of his ADLs. Related Data Home Medications ?Medication ?Instructions ?Recorded ?Confirmed atorvastatin 40 mg tablet 40 mg PO DAILY 07/19/20 07/19/20 baclofen 10 mg tablet 10 mg PO TID PRN Muscle Spasm 07/19/20 07/19/20 carvedilol 12.5 mg tablet 12.5 mg PO Q12H 07/19/20 07/19/20 furosemide 20 mg tablet 20 mg PO DAILY 07/19/20 07/19/20 gabapentin 400 mg capsule 400 mg PO TID 07/19/20 07/19/20 hydrocodone 5 mg-acetaminophen 325 1 tab PO BID PRN Pain 07/19/20 07/19/20 mg tablet lisinopril 40 mg tablet 40 mg PO DAILY 07/19/20 07/19/20 magnesium oxide 400 mg (241.3 mg 400 mg PO DAILY 07/19/20 07/19/20 magnesium) tablet meloxicam 15 mg tablet 15 mg PO DAILY 07/19/20 07/19/20 nitroglycerin 0.4 mg sublingual 0.4 mg sublingual Q5MIN PRN Chest 07/19/20 07/19/20 tablet Pain Allergies Allergy/AdvReac Type Severity Reaction Status Date / Time No Known Allergies Allergy Verified 07/20/20 16:29 Review of Systems General: Reports: ROS unobtainable due to mental status PFS ED PFSH: Medical History (Updated 08/11/25 @ 22:16 by Andi Valdes DO) Aneurysm of infrarenal abdominal aorta 4.4cm AP, 5.1 cm craniocaudal on 07/19/2020 CHF (congestive heart failure) Hyperlipidemia CAD (coronary artery disease) Surgical History Hx of CABG Social History Smoking and tobacco/nicotine status: unknown if used tobacco/nicotine Physical Exam Narrative: EXAM NARRATIVE: Patient obese, chronically ill-appearing, hypertensive but other vital stable on arrival, on 2 L saturating over 96%, afebrile, no acute distress patient with distant coarse breath sounds but nothing adventitious, breathing comfortably on 2 L which was placed by EMS, no increased work of breathing, no signs of respiratory distress. Normal sinus rhythm with no murmurs, mild nonpitting lower extremity edema, pale but good refill, 2+ pulses. Abdomen protuberant but soft, no overlying skin changes, bowel sounds decreased, no reproducible tenderness, no CVA tenderness. GCS 14, able to follow commands and answer questions appropriately. Course Vital Signs: Vital signs: Vital Signs Temperature 98.1 F 08/11/25 18:11 Pulse Rate 87 08/11/25 20:41 Respiratory Rate 16 08/11/25 21:05 Blood Pressure 197/108 08/11/25 20:41 Pulse Oximetry 94 08/11/25 21:05 Oxygen Delivery Me thod Room Air 08/11/25 20:41 Oxygen Flow Rate 2 08/11/25 18:11 MDM - Syncope Medical Decision Making -ddx: Vagal versus orthostatic versus cardiac syncope, URI, pneumonia, hypertensive urgency versus emergency, constipation, SBO, ileus - Patient with syncopal episode at home seemingly after having a coughing fit likely vagal but very comorbid and so we will evaluate with cardiac workup, CT abdomen pelvis in setting of recent constipation with possibly obstipation, is alert and oriented x 2 seemingly at baseline per brother but will also get CT head to evaluate for any bleed, other pathology. Patient has some baseline back pain, will start with oxycodone, with blood pressure a little over 200 systolic will give 20 of labetalol. - Patient's blood pressure hovered around 200, 20 mg more of labetalol given with mild improvements to 180, did not develop any symptoms of chest pain, shortness of breath here, had no further episodes of syncope. Of note, his BMP was seemingly at an all-time IV for him at 1659, his troponins were elevated more than usual with an increasing delta, 51 and then 73. In setting of his very high risk comorbidities, he was admitted to the hospital for further management of his hypertension, syncopal episode, still unexplained white count of 19, pending urinalysis at time of admission, stable at this time. Lab Data 08/11/25:08/11/25 Radiology Impressions Abdomen/Pelvis CT 08/11/25: IMPRESSION: 1. Moderate stool burden in the rectum. No evidence of bowel obstruction. 2. Diverticulosis coli. No evidence of acute diverticulitis. 3. Abdominal aortic aneurysm. COMMENTS: For patients with an IVC filter, recommend assessment for a management plan for the patient's IVC filter. If there is no established management plan, recommend referral to an interventional clinician on a nonemergent basis for evaluation. Chest X-Ray 08/11/25: IMPRESSION: No acute abnormality identified. Head CT 08/11/25: IMPRESSION: No change since previous study with chronic inferior left cerebellar stroke. No acute intracranial hemorrhage, mass effect or hydrocephalus, unchanged. Laboratory Results WBC 19.50 10^3/uL (3.29-11.43) H 08/11/25: RBC 5.19 10^6/uL (3.85-5.65) 08/11/25: Hgb 14.30 g/dL (11.27-16.99) 08/11/25: Hct 45.0 % (37-53) 08/11/25: MCV 86.7 fl (82-101) 08/11/25: MCH 27.6 pg (27-33) 08/11/25: MCHC 31.8 g/dL (30-55) 08/11/25: RDW 13.7 % (12.1-15.1) 08/11/25: Plt Count 253 10^3/cmm (157-399) 08/11/25: MPV 10.2 fL (7.4-10.4) 12/20/25 19:25 Neut % (Auto) 87.6 % 08/11/25 19: Lymph % (Auto) 5.8 % 08/11/25: [place] % (Auto) 4.7 % 08/11/25: Eos % (Auto) 0.6 % 08/11/25:25 Baso % (Auto) 0.3 % 08/11/25: Neut # (Auto) 17.09 10^3/uL (1.8-7.7) H 08/11/25: Lymph # (Auto) 1.1 10^3/uL (0.8-4.8) 08/11/25: [place] # (Auto) 0.9 10^3/uL (0.2-0.9) 08/11/25: Eos # (Auto) 0.1 10^3/uL (0.0-0.8) 08/11/25: Baso # (Auto) 0.1 10^3/uL (0.0-0.1) 08/11/25: Nucleated RBC % (auto) 0 % 08/11/25: Nucleated RBCs # 0.0 /100WBC 08/11/25 19:25 Sodium 134 mmol/L (136-145) L 08/11/25: Potassium 3.9 mmol/L (3.5-5.1) 08/11/25: Chloride 99 mmol/L (98-107) 08/11/25: Carbon Dioxide 21 mmol/L (22-29) L 08/11/25:25 Anion Gap 17.9 (5-19) 08/11/25 19:25 BUN 9 mg/dL (8-23) 08/11/25 19:25 Creatinine 0.6 mg/dL (0.7-1.2) L 08/11/25:25 GFR Calculation Not Reportable 08/11/25: Glucose 163 mg/dL (65-115) H 08/11/25 19:25 Calculated Osmolality 280 mOsm/kg (285-295) L 08/11/25:25 Lactic Acid 1.7 mmol/L (0.5-2.2) 08/11/25: Calcium 8.9 mg/dL (8.5-10.5) 08/11/25 19:25 Phosphorus 2.4 mg/dL (2.5-4.5) L 08/11/25 19:25 Magnesium 2.2 mg/dL (1.7-2.3) 08/11/25 19:25 Total Bilirubin 0.7 mg/dL (0.15-1.2) 08/11/25 19:25 AST 22 U/L (0-40) 08/11/25 19:25 ALT 17 U/L (0-41) 08/11/25 19:25 Alkaline Phosphatase 88 U/L (40-130) 08/11/25 19:25 Troponin T Baseline 51 ng/L (0-15) H 08/11/25 19:25 Troponin T 60 Minute 73.21 ng/L (0-15) H 08/11/25 20:16 Delta Troponin T 22.21 ABS# (0-10) H* 08/11/25 20:16 C-Reactive Protein 16.6 mg/L (0.0-4.9) H 08/11/25 19:25 NT-Pro-B Natriuret Pep 1659 pg/mL (0-450) H 08/11/25 19:25 Total Protein 6.9 g/dL (6.6-8.7) 08/11/25 19:25 Albumin 3.9 g/dL (3.5-5.2) 08/11/25 19:25 Globulin 3.0 g/dL (1.3-4.6) 08/11/25 19:25 All radiology interpretation(s) finalized by discharge Critical Care Time Critical Care Time: Critical Care Time: Yes Total Critical Care Time: 32 Attestation: Hypertensive urgency requiring multiple pushes of IV antihypertensives, elevated troponins in very comorbid patient Discharge Plan Discharge Patient Disposition: Admitted As Inpatient Clinical Impression: Hypertensive urgency, Elevated troponin, Back pain Condition: Stable Coding Level of Care Code ED Project Control Analyst for Mayda Vo
[2025-08-11] MEDS: oxyCODONE 5 mg IR Tab/Cap PO (19:51)
[2025-08-11] MEDS: labetalol 5 mg/mL SDV 20mL 20 MG IVP ×2 (19:51→21:06)
--- NOTE | 2025-08-11 20:05 | ECG_ITS ---
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
[2025-08-11 20:06] LABS: Lactic Sepsis W/Reflex 1.7 mmol/L (0.5-2.2)
[2025-08-11 20:10] LABS: Alanine Aminotransferase 17 U/L (0-41); Albumin Level 3.9 g/dL (3.5-5.2); Alkaline Phosphatase 88 U/L (40-130); Anion Gap 17.9 (5-19); Aspartate Amino Transferase 22 U/L (0-40); Blood Urea Nitrogen 9 mg/dL (8-23); Calcium 8.9 mg/dL (8.5-10.5); Carbon Dioxide 21 mmol/L (22-29); Chloride 99 mmol/L (98-107); Globulin 3.0 g/dL (1.3-4.6); Glucose 163 mg/dL (65-115); Magnesium 2.2 mg/dL (1.7-2.3); Osmolality Calculated 280 mOsm/kg (285-295); Potassium 3.9 mmol/L (3.5-5.1); Sodium 134 mmol/L (136-145); Total Protein 6.9 g/dL (6.6-8.7); Troponin(5th) Baseline 51 ng/L (0-15)
[2025-08-11 20:17] LABS: NT Pro B Type Natriuretic Pept 1659 pg/mL (0-450)
[2025-08-11] MEDS: morphine 4 mg/mL SDV 1 mL IVP (21:05)
[2025-08-11] MEDS: hyDRALAzine 20 mg/mL INJ 1 mL 10 MG IVP (22:48)
--- NOTE | 2025-08-11 23:05 | P.HP_ITS ---
Providers/Chief Complaint 2 Admitting Physician: Peter Myles MD Primary Care Provider: Nellie Joe NP Chief Complaint: syncope History of Present Illness Ravindra Lam is a 75 year old male comes in with episode of nonresponsiveness for 4 minutes. He is accompanied by his brother Jeremiah who gives the history of the event. They were watching football together and patient was conversing regularly then did not answer a question. Jeremiah went over and talk to the patient who did not answer and then shook him also did not answer. Patient was with eyes rolled back in his head and a little bit of jerking in the arms but was not stiff. He called 911 and ambulance. Reports says patient was awake but not answering questions blood sugar 154. Blood pressure 154/88 pulse 99 O2 sat 95% there is no other meaningful documentation from EM. Patient has a history of coronary artery disease CABG, COPD, CHF he has a home health RN because patient cannot walk and he has bedsore in his sacrum as well as the right heel. Patient typically is alert and orient x 2 at least. His Valeria is his caregiver but she is out of town in [facility] because her mother . She left on Wednesday and will be back tomorrow. Patient's brother Jeremiah also from [facility] is caring for the patient. He states he is turning the patient every time he changes the patient but not otherwise. Patient had 4 stools today. He has been constipated with recent Milk of Magnesia given. Patient is confused as to how he got here. He has been told by his brother. Brother states that patient is clear of mind now. Dr. Valdes thought that maybe the patient had vasovagal response to bowel movements today. Patient states that his blood pressure has been high the last 2 days. Patient tells me that his hips are deteriorated and he was told in the hospital during a hospitalization 1 year ago at [facility] that operation may not be possible for the degree of disease in his hips. Patient tells me he also has knee pain. Review of Systems 2 Narrative: General No fevers chills Cardiovascular no chest pain palpitations or change in edema. Respiratory positive for cough with white phlegm GI positive for nausea no vomiting he has had loose stools after Milk of Magnesia given 2 days ago no blood in the stool positive for dysuria but no hematuria Heme he has had no blood clots in legs or lungs Neuro denies seizures he was told maybe 7 or 8 years ago that maybe he had a mild stroke but he does not recall if he had any symptoms and cannot recall limb weakness dysarthria. It may have been related to a CT scan finding Musculoskeletal patient reports that for the last 4 months he cannot walk prior to that he could walk with a walker few steps. He denies any broken bones in his back states his hips deteriorated. Patient reports pain in the hips and knees. Malignancy history negative Medications/Allergies Home Medications ?Medication ?Instructions ?Recorded ?Confirmed ?Last Taken ?Type atorvastatin 40 mg tablet 40 mg PO DAILY 07/19/2006/24 Unknown History baclofen 10 mg tablet 10 mg PO TID PRN Muscle Spas m 07/19/20 07/19/20 Unknown History carvedilol 12.5 mg tablet 12.5 mg PO Q12H 07/19/20 Unknown History furosemide 20 mg tablet 20 mg PO DAILY 07/19/2006/24 Unknown History gabapentin 400 mg capsule 400 mg PO TID 07/19/2007/19 Unknown History hydrocodone 5 mg-acetaminophen 325 1 tab PO BID PRN Pa in 07/19/20 07/19/20 Unknown History mg tablet lisinopril 40 mg tablet 40 mg PO DAILY 07/19/2006/24 Unknown History magnesium oxide 400 mg (241.3 mg 400 mg PO DAILY 07/1907/19/20 Unknown History magnesium) tablet meloxicam 15 mg tablet 15 mg PO DAILY 07/19/2006/24 Unknown History nitroglycerin 0.4 mg sublingual 0.4 mg sublingual Q5MI N PRN Chest 07/19/20 07/19/20 Unknown History tablet Pain Allergies Allergy/AdvReac Type Severity Reaction Status Date / Time No Known Allergies Allergy Verified 07/20/20 16:29 PFSH Acute 2 PFSH: Medical History (Updated 08/11/25 @ 23:29 by Peter Myles MD) Aneurysm of infrarenal abdominal aorta 4.4cm AP, 5.1 cm craniocaudal on 07/19/2020 CHF (congestive heart failure) Hyperlipidemia CAD (coronary artery disease) Surgical History Hx of CABG Social History (Updated 08/11/25 @ 23:14 by Peter Myles MD) Smoking and tobacco/nicotine status: unknown if used tobacco/nicotine Alcohol intake: never Substance/Drug Use: never Additional social history: Patient is companied by his brother Jeremiah. Patient wants full code as discussed today with Peter Myles MD on 08/11/2025. 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 He complains of back pain Abdomen positive bowel tones soft obese nontender Calves left leg is larger than the right 1+ edema left leg trace on the right right heel with shallow pressure divot that appears to be healed not ulcerated Neuro pupils are equally round and reactive light accommodation at 2.5 mm external ocular movements are intact face is symmetric tongue protrusion midline head turn to left and right good strength motor strength 5/5 bilateral handgrips and foot flexion and extension. Gross sensation is decreased below the knees he reports some tingling and then some numbness in the feet. Mentation he is alert and oriented x 3 except he thought it was Wednesday instead of Wednesday On lifting his heels off the bed for exam he is very painful and resistant to exam. Raising his knees to bend them just 5 degrees he is complaining of pain. The knees are not obviously inflamed. Not able to range of motion his hips because of pain. Data 08/11/25 19:25 08/11/25 19:25 A&P Assessment and plan 1. Syncope: Patient with 4 minutes of unresponsiveness and some confusion thereafter that she was just a seizure. Because he was not stiff that goes against seizure but he did lose urinary continence. Other option is that he had a vagal response due to diarrhea from milk of mag but the patient denied abdominal pain and he had immediate vitals showing hypertension and tachycardia not bradycardia. 2. Hypertensive urgency: Patient is admitted and states he did not miss any of medications other than his 7 PM meds tonight. Will increase carvedilol to 25 mg twice a day. Patient be monitored on telemetry. Continue lisinopril. Will give additional doses of hydralazine as needed 3. Elevated troponin: Monitor additional troponins and will check echocardiogram due to syncope and elevated troponin 4. DVT, bilateral lower limbs: Patient is a poor historian he denied blood clots in his legs. He is has an IVC filter. 5. Osteoarthritis: Patient is nonambulatory and now has bedsores. He has DJD of the hips and knees by history will obtain plain films. Start physical therapy. I discussed with patient that he needs to get mobile and even with hip he placements and knee replacements if he is not mobile he will not regain ambulation. He is willing to do therapy but unwilling to go to [place] [facility] and wants to be home by [place] 6. Sacral decubitus ulcer: Sacral and right heel ulcer will need heel protectors wound care and physical therapy family needs to be educated regarding need for turning as does the patient PDMP PDMP Reviewed: Not Reviewed Attestations 2 Medical Necessity Statement*: Patient is admitted to hospital with hypertensive urgency and syncope and will require greater than 2 midnights in the hospital Coding Level of Care Code 96324 Diagnoses Syncope R55 Hypertensive urgency I16.0 Elevated troponin R79.89 DVT, bilateral lower limbs I82.403 Osteoarthritis M19.90 Sacral decubitus ulcer L89.159 Time Spent (min) 75
[2025-08-12] VITALS (11 sets, daily range): BP systolic 121–169; BP diastolic 63–89; PULSE 66–73; RESP 16–18; TEMP 36.6–37; O2SAT 93–97; BMI 32.6
[2025-08-12] MEDS: potassium phosphate (mEq K) 40 MEQ in sodium chloride 0.9% (100 ml) 100 ML 27.25 MEQ IV (01:38)
--- NOTE | 2025-08-12 07:26 | USR_ITS ---
PROCEDURE INFORMATION: Exam: US Duplex Bilateral Extracranial Arteries; Complete; Carotid Arteries Exam date and time: 08/12/2025 9:12 AM Age: 75 years old Clinical indication: Syncope and collapse TECHNIQUE: Imaging protocol: Real-time duplex ultrasound scan of the bilateral extracranial arteries combining robledo scale, color Doppler and spectral waveform analysis with image documentation. Complete exam. Exam focused on the carotid arteries. COMPARISON: CT head wo con* [id number] 08/11/2025 7:28 PM FINDINGS: Right common carotid artery: Unremarkable. No occlusion or stenosis. Waveforms are normal. Right internal carotid artery: Unremarkable. No occlusion or stenosis. Waveforms are normal. Right ICA/CCA ratio: Within normal limits. Right external carotid artery: No stenosis in the origin. Right vertebral artery: Unremarkable. Antegrade flow. Left common carotid artery: Unremarkable. No occlusion or stenosis. Waveforms are normal. Left internal carotid artery: Unremarkable. No occlusion or stenosis. Waveforms are normal. Left ICA/CCA ratio: Within normal limits. Left external carotid artery: 50-69% diameter stenosis left external carotid artery. Peak systolic velocity is 232 cm/sec. Left vertebral artery: Unremarkable. Antegrade flow. US/CV carotid duplex BI* [id number] IMPRESSION: 1. 50-69% diameter stenosis left external carotid artery. 2. No other hemodynamically significant carotid arterial stenoses or occlusions. REFERENCES: SRU CRITERIA. The degree of internal carotid artery stenosis is based on criteria defined by the Society of Radiologists in Ultrasound (SRU). Normal is no stenosis. Mild is less than 50% stenosis. Moderate is 50-69% stenosis. Severe is greater than 69% stenosis to near occlusion. Near occlusion is a markedly narrowed lumen. Total occlusion is no detectable patent lumen. Fransisca Valentine, et al. Carotid Artery Stenosis: Robledo-Scale and Doppler US Diagnosis-Society of Radiologists in Ultrasound Consensus Conference. Radiology 2003; 229:340-346.
--- NOTE | 2025-08-12 07:26 | USCV_ITS ---
Genaro Ravindra Age: 75 Gender: M : 1950 Exam Date: 08/12/2025 08:55 Ordering Phys: Fely Naylor NP Technologist: TINA [place] [facility] [place]: Syncope BP: 152 / 81 HR: 68 Rhythm: Sinus Technical Quality: Adequate MEASUREMENTS (Male / Female) Normal Values 2D ECHO LV Diastolic Diameter PLAX 5.2 cm 4.2 - 5.9 / 3.9 - 5.3 cm IVS Diastolic Thickness 1.0 cm 0.6 - 1.0 / 0.6 - 0.9 cm IVS Systolic Thickness 1.1 cm LVPW Diastolic Thickness 1.0 cm 0.6 - 1.0 / 0.6 - 0.9 cm LVPW Systolic Thickness 1.1 cm LVOT Diameter 2.1 cm LV Ejection Fraction 2D Teich 6.0 % LV Ejection Fraction MOD 4C 57.7 % LV Ejection Fraction MOD 2C 58.2 % LV Ejection Fraction 2C AL 61.0 % LA Diameter 4.1 cm RA Systolic Volume 4C AL 40.8 ml RA Systolic Volume 4C MOD 39.4 ml LA Sys Volume AL 59.4 cm cubed LA Sys Volume Index AL 25.8 cm cubed/m squared Aorta at Sinotubular Diameter 2.9 cm M-MODE LA Ao Ratio MM 1.5 AV Cusp Separation MM 1.7 cm DOPPLER AV Peak Velocity 118.0 cm/s LVOT Peak Velocity 93.0 cm/s AV Area Cont Eq vti 2.8 cm squared AV Area Cont Eq pk 2.7 cm squared MV Peak Velocity 72.0 cm/s MV Area PHT 3.6 cm squared Mitral E to A Ratio 1.0 TR Peak Velocity 101.0 cm/s TR Peak Gradient 4.1 mmHg TV Peak E Velocity 43.0 cm/s PV Peak Velocity 91.0 cm/s FINDINGS Left Ventricle Technically limited quality echocardiogram. LV systolic function is normal with EF of 55-60%. No regional wall motion abnormalities are seen. Right Ventricle Normal in size and function Right Atrium Normal in size Left Atrium Normal in size IA Septum Grossly normal Mitral Valve Structurally normal mitral valve. Mild mitral regurgitation. Aortic Valve Grossly normal. No significant stenosis or regurgitation Tricuspid Valve Insufficient TR jet to calculate RVSP Pulmonic Valve Not well visualized Pericardium Normal Aorta Normal in size IVC Not visualized CONCLUSIONS LV systolic function is normal with EF of 55-60% Mild mitral regurgitation. Geovanni Knapp MD (Electronically Signed) Final Date: 12 August 2025 10:49 S
--- NOTE | 2025-08-12 07:27 | P.PN_ITS ---
Subjective 2 Subjective: Patient is a very pleasant 75-year-old male seen and examined at bedside on hospital rounds this morning. Patient sitting up in bed orientated to baseline x 3, brother at bedside and of good support to the patient. Patient continues to have complaints of bilateral lower extremity weakness and mild shortness of breath. Patient says that when he gets up and walks around he has increased shortness of breath. Bilateral carotid Doppler reviewed, no significant occlusion noted. Elevated troponin. Pending echo, reviewed chart with Dr. Mccord mechanical manufacturing engineer who graciously agrees for cardiology consultation in the morning. Patient will be n.p.o. at midnight for stress test in the a.m. Pending physical therapy evaluation which will most likely happen tomorrow, patient will be referred home with home health unless he needs skilled. Greatly appreciate case management and discharge planning, referral already sent for home health of choice. Vital signs reviewed stable blood pressure 152/81, pulse 71, respirations 17, temp 98.3 ?F, O2 sat 97% on supplemental oxygen 2 L/min via nasal cannula. Patient does have home oxygen already as needed. In review of labs WBC improved 15.27, hemoglobin 13.50, stands BUN 12, creatinine 0.8. Vitals/I&O/Wt Last Vital Signs Temp 98.1 F 08/12/25 04:00 Pulse 70 08/12/25 05:16 Resp 18 08/12/25 04:00 BP 130/76 08/12/25 04:00 Pulse Ox 93 08/12/25 04:00 O2 Del Method Nasal Cannula 08/12/25 00:42 O2 Flow Rate 2 08/12/25 00:42 08/11/25 08/12/25 08/12/25 22:59 06:59 14:59 Intake Total 109.0909 / 109.0909 Balance 109.0909 / 109.0909 Weight last 48 hrs Weight 104.553 kg Weight 103.147 kg Weight 108.862 kg Physical Exam 2 Narrative: General: A&Ox3, sitting up in bed, weakness, but in NAD. HEENT: Normo-cephalic, atraumatic, grossly unremarkable exam Cardio: NSR, normal S1-S2 without any murmurs, rubs, or gallops and JVD normal Respiratory: Clear bilaterally to auscultation, diminished at the bases. GI: Abd soft, non-tender, non-distended, normo-active bowel sounds present Neuro: No sensory deficits, Normal speech Behavior: Appropriate and cooperative Extremities: Distal pulses are palpable ANDRE lower extremity is warm and well- perfused. Weakness in ANDRE legs Data 08/12/25 08:28 08/12/25 08:28 A&P Assessment and plan 1. Syncope: - CT Head: No change since previous study with chronic inferior left cerebral stroke, no acute intracranial hemorrhage, mass effect or hydrocephalus, unchanged. - Fall precautions - Suspicion for vasovagal - ANDRE carotid doppler - Pending ECHO 2. Hypertensive urgency: - Blood pressure improved: 152/81 - Continue increased dosing carvedilol 25 mg p.o. twice daily, lisinopril 40 mg p.o. daily,. Hydralazine - Monitor 3. Elevated troponin: - Denies chest pain - Most lkely Type II Demand (not wearing home oxygen) - Troponin 47.30--<51--<73.21 - Greatly appreciate cardiology consultation management with Dr. Knapp in the morning - N.p.o. midnight for stress test tomorrow morning 4. DVT, bilateral lower limbs: - Per previous documentation Patient is a poor historian he denied blood clots in his legs. He is has an IVC filter. 5. Osteoarthritis: - Patient is non-ambulatory and now has bedsores. - Pending PT evaluation - Frequent repositioning 6. Sacral decubitus ulcer: - Sacral and right heel ulcer will need heel protectors wound care and physical therapy family needs to be educated regarding need for turning as does the patient - Pending Home health, appreciate Case Management on discharge planning 7. Hyperlipidemia: - Pending Lipid Panel - Continue atorvastatin 40 mg p.o. daily 8. CAD (coronary artery disease): - Continue cardioprotective medications. 9. CHF (congestive heart failure): - Euvolemic - Continue cardioprotective medications including atorvastatin, carvedilol, Lasix, lisinopril - Pending cardiology consultation and management Plan: VTE PPX: SCD GI PPX: PPI Code Status: Full Code PDMP PDMP Reviewed: Not Reviewed Attestations 2 Medical Necessity Statement*: Patient will continue inpatient interventions for syncope and hypertensive urgency, pending PT evaluation and recommendations. Coding Level of Care Code 58705 Diagnoses Syncope R55 Hypertensive urgency I16.0 Elevated troponin R79.89 DVT, bilateral lower limbs I82.403 Osteoarthritis M19.90 Sacral decubitus ulcer L89.159 Hyperlipidemia E78.5 CAD (coronary artery disease) I25.10 CHF (congestive heart failure) I50.9
--- NOTE | 2025-08-12 08:00 | XRR_ITS ---
PROCEDURE INFORMATION: Exam: XR Pelvis Exam date and time: 08/12/2025 11:28 AM Age: 75 years old Clinical indication: Hip pain; Bilateral; Additional info: Bilateral hip pain; PT is bedbound x 1yr; No specific known injury. TECHNIQUE: Imaging protocol: Radiologic exam of the pelvis. Views: 1 or 2 view. COMPARISON: CT abdomen pelvis wo con [id number] 08/11/2025 7:31 PM FINDINGS: Bones/joints: Severe arthritis both hips with marked narrowing of the joint spaces and deformities of both femoral heads. Spondylosis visualized lumbar spine. Both superolateral acetabular lips are prominent, and there is buttressing of both lateral femoral heads. This can result in femoral acetabular impingement on 1 or both sides. Otherwise, unremarkable. Soft tissues: Otherwise, unremarkable soft tissues. Vasculature: Large amount of arterial calcification. XR/XR pelvis 1-2V* [id number] IMPRESSION: 1. Severe arthritis both hips with marked narrowing of the joint spaces and deformities of both femoral heads. 2. 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
--- NOTE | 2025-08-12 08:00 | XRR_ITS ---
PROCEDURE INFORMATION: Exam: XR Left Knee Exam date and time: 08/12/2025 11:31 AM Age: 75 years old Clinical indication: Pain; Knee; Bilateral; Additional info: Bilateral knee pain; PT is bedbound x 1yr; No specific known injury; Best obtainable images due to patient condition. TECHNIQUE: Imaging protocol: Radiologic exam of the left knee. Views: 1 or 2 views. COMPARISON: [place] [id number] 07/20/2020 9:21 AM FINDINGS: Tubes, catheters and devices: Surgical clips medially. Bones/joints: Diffuse osteopenia. Mild degenerative changes left patellofemoral articulation. No obvious left knee joint effusion, but evaluation for such is limited as a true lateral view is not provided. Otherwise, unremarkable. Soft tissues: Otherwise, unremarkable soft tissues. Vasculature: Large amount of arterial calcification. XR/XR knee LT 1-2V [id number] IMPRESSION: 1. No acute findings. 2. Additional details as above.
--- NOTE | 2025-08-12 08:00 | XRR_ITS ---
PROCEDURE INFORMATION: Exam: XR Right Knee Exam date and time: 08/12/2025 11:36 AM Age: 75 years old Clinical indication: Pain; Knee; Bilateral; Additional info: Stanley TECHNIQUE: Imaging protocol: Radiologic exam of the right knee. Views: 1 or 2 views. COMPARISON: [place] [id number] 07/20/2020 9:21 AM FINDINGS: Bones/joints: Diffuse osteopenia. Mild degenerative changes right patellofemoral articulation. Small right knee joint effusion. Otherwise, unremarkable. Soft tissues: Surgical clips medially Otherwise, unremarkable soft tissues. Vasculature: Large amount of arterial calcification. XR/XR knee RT 1-2V [id number] IMPRESSION: 1. Small right knee joint effusion. 2. No other acute findings. 3. Additional details as above.
[2025-08-12 08:54] LABS: Hematocrit 42.6 % (37-53); Hemoglobin 13.50 g/dL (11.27-16.99); Mean Corpuscular HGB Conc 31.7 g/dL (30-55); Mean Corpuscular Hemoglobin 28.2 pg (27-33); Mean Corpuscular Volume 89.1 fl (82-101); Nucleated Red Blood Cells % 0 %; Platelet Count 232 10^3/cmm (157-399); Red Blood Count 4.78 10^6/uL (3.85-5.65); White Blood Count 15.27 10^3/uL (3.29-11.43)
[2025-08-12 09:15] LABS: Alanine Aminotransferase 14 U/L (0-41); Albumin Level 3.4 g/dL (3.5-5.2); Alkaline Phosphatase 78 U/L (40-130); Anion Gap 16.1 (5-19); Aspartate Amino Transferase 17 U/L (0-40); Blood Urea Nitrogen 12 mg/dL (8-23); Calcium 8.8 mg/dL (8.5-10.5); Carbon Dioxide 23 mmol/L (22-29); Chloride 101 mmol/L (98-107); Globulin 3.3 g/dL (1.3-4.6); Glucose 111 mg/dL (65-115); Magnesium 2.1 mg/dL (1.7-2.3); Osmolality Calculated 282 mOsm/kg (285-295); Potassium 4.1 mmol/L (3.5-5.1); Sodium 136 mmol/L (136-145); Total Protein 6.7 g/dL (6.6-8.7)
--- NOTE | 2025-08-12 11:47 | PC.PHAR ---
Patient was unsure of his medication, told me to come talk to his that she is on her way to his room. she be there around 12:30.
[2025-08-12] MEDS: HYDROcodone-acetaminophen 5-325 mg Tablet 1 TAB PO (20:41)
[2025-08-13] VITALS (8 sets, daily range): BP systolic 107–162; BP diastolic 54–77; PULSE 57–73; RESP 17–19; TEMP 36.6–37; O2SAT 93–97
[2025-08-13 05:24] LABS: Hematocrit 39.0 % (37-53); Hemoglobin 11.90 g/dL (11.27-16.99); Mean Corpuscular HGB Conc 30.5 g/dL (30-55); Mean Corpuscular Hemoglobin 27.5 pg (27-33); Mean Corpuscular Volume 90.1 fl (82-101); Nucleated Red Blood Cells % 0 %; Platelet Count 186 10^3/cmm (157-399); Red Blood Count 4.33 10^6/uL (3.85-5.65); White Blood Count 10.19 10^3/uL (3.29-11.43)
[2025-08-13] MEDS: ferrous sulfate EC 325 mg Tablet PO (05:31)
[2025-08-13 05:55] LABS: Alanine Aminotransferase 11 U/L (0-41); Albumin Level 3.4 g/dL (3.5-5.2); Alkaline Phosphatase 63 U/L (40-130); Anion Gap 12.1 (5-19); Aspartate Amino Transferase 13 U/L (0-40); Blood Urea Nitrogen 20 mg/dL (8-23); Calcium 8.9 mg/dL (8.5-10.5); Carbon Dioxide 28 mmol/L (22-29); Chloride 103 mmol/L (98-107); Globulin 2.8 g/dL (1.3-4.6); Glucose 97 mg/dL (65-115); Magnesium 2.3 mg/dL (1.7-2.3); Osmolality Calculated 291 mOsm/kg (285-295); Potassium 4.1 mmol/L (3.5-5.1); Sodium 139 mmol/L (136-145); Total Protein 6.2 g/dL (6.6-8.7)
[2025-08-13 08:27] LABS: Glucose Urine UA Negative (Normal); Nitrate Urine Negative (Negative); Specific Gravity, Urine 1.029 (1.005-1.030)
[2025-08-13 08:29] LABS: Add Urine Microscopic? YES; Universal Test for UA Present (0)
--- NOTE | 2025-08-13 08:41 | PC.NURSE ---
This nurse called [facility] to see if pt had his stress test done this morning as pt was injected for it and only off the floor for approximately 10 minutes. Naomie in [facility] said pt refused once getting down there. This nurse notified Dr. Carlos of refusal.
[2025-08-13 08:50] LABS: UA Slide Review UA Slide Review Perf
--- NOTE | 2025-08-13 08:59 | ECG_ITS ---
[facility] Test Date: 2025-08-13 Pat Name: Ravindra Lam Department: Room: 259 Gender: Male Senior Writer: : 1950 Requested By: Flynn Carlos Order Number: [id number] Reading MD: FANTA MARIANO Measurements Intervals [place] Rate: 64 P: 7 ND: 155 QRS: 9 QRSD: 98 T: 56 QT: 433 QTc: 449 Interpretive Statements SINUS RHYTHM [address] DEVIATION AND MODERATE T-WAVE ABNORMALITY, CONSIDER ANTERIOR ISCHEMIA [-0.1+ mV T-WAVE IN V3/V4] Compared to ECG 08/11/2025 18:15:36 Possible ischemia now present T-wave abnormality still present Electronically Signed On 08-14-2025 11:59:28 VOLUNTEER SERVICES SPECIALIST by FANTA MARIANO [email or web address] [email or web address]
[2025-08-13 09:27] LABS: Troponin(5th) Baseline 82 ng/L (0-15)
--- NOTE | 2025-08-13 10:41 | ECG_ITS ---
[facility] Date: 2025-08-13 Pat Name: Ravindra Lam Department: Room: 259 Gender: Male Watch Dial Maker: : 1950 Requested By: Flynn Carlos Order Number: [id number] Reading MD: FANTA MARIANO Measurements Intervals [place] Rate: 54 P: 15 WV: 140 QRS: 9 QRSD: 98 T: 57 QT: 454 QTc: 433 Interpretive Statements SINUS BRADYCARDIA ST DEVIATION AND MODERATE T-WAVE ABNORMALITY, CONSIDER ANTERIOR ISCHEMIA [-0.1+ mV T-WAVE IN V3/V4] Compared to ECG 08/13/2025 08:59:34 Sinus rhythm no longer present T-wave abnormality still present Possible ischemia still present Electronically Signed On 08-15-2025 20:42:30 ANIMATOR by FANTA MARIANO [email or web address] [id number]
--- NOTE | 2025-08-13 13:11 | PC.SOCIAL ---
IMM Updated Updated pt on IMM. No questions voiced. Provided pt a copy. Initialed, dated, & time a copy & placed in chart.
--- NOTE | 2025-08-13 14:45 | PM.PN ---
Subjective Subjective: Patient seen in the morning, and refused nuclear stress test to rule out any ischemic cardiomyopathy. The patient is claustrophobic and would not like to proceed. Cardiology on board and informed about patient preference. patient currently asymptomatic. repeat trop negative. currently stable Vitals/I&O/Wt Last Vital Signs Temp 98.5 F 08/13/25 11:55 Pulse 57 L 08/13/25 11:55 Resp 19 H 08/13/25 11:55 BP 117/54 08/13/25 11:55 Pulse Ox 95 08/13/25 11:55 O2 Del Method Nasal Cannula 08/13/25 11:55 O2 Flow Rate 2 08/13/25 08:00 08/12/25 08/13/25 08/13/25 22:59 06:59 14:59 Intake Total 360 / 960 240 / 240 Output Total 300 / 300 Balance 360 / 760 -60 / -60 Weight last 48 hrs Weight 106.311 kg Weight 104.553 kg Weight 103.147 kg Weight 108.862 kg Physical Exam Narrative: General: Alert and oriented, lying comfortably without any distress HEENT: Normocephalic, atraumatic, grossly unremarkable exam Cardio: normal rate rhythm, normal S1-S2 without any murmurs, rubs, or gallops and JVD normal Respiratory: mild coarse crackles due to secretions, no wheezes, no stridor, able to speak in full sentences. GI: Abdomen soft, nontender, nondistended, normoactive bowel sounds present all 4 quadrants, Neuro: intact cranial nerves motor and sensory and cerebellar/coordination function without any focal neurological deficit Behavior: Appropriate and cooperative Extremities: Adequate palpable pulses, mild trace edema Data 08/13/25 05:02 08/13/25 05:02 A&P Assessment and plan 1. Vasovagal syncope: - CT Head: No change since previous study with chronic inferior left cerebral stroke, no acute intracranial hemorrhage, mass effect or hydrocephalus, unchanged. - Fall precautions - Suspicion for vasovagal? And could be seizure since the patient has a rolling of eyes and urinary incontinence - Start the patient on Keppra 750 mg twice daily and then to discharge with neurology follow-up for EEG and MRI as outpatient, discussed with neurology for the further plan of care and tailoring of his possible differential diagnosis of seizures? - Carotid Doppler showed 50 to 69% stenosis of the left external carotid and no other stenosis. - Echo showed ejection fraction of 55 to 60%, for detailed report refer to the study - Continue telemetry monitoring 2. Seizures: There is also high likelihood of possible seizures episode based on the patient history provided by the brother Start the patient on Keppra 750 twice daily after discussing on the phone verbally by the neurologist. EEG and MRI as outpatient and with referral to the neurologist The neurologist further later tailor Keppra based on patient further evaluation and diagnostic workup. Continue seizure precautions Frequent neurochecks 3. Acute kidney injury: Patient started on lisinopril 40 mg daily? Hold lisinopril, gentle hydration Monitor renal parameters Start amlodipine 5 mg to control blood pressure Intake and output monitoring Electrolyte monitoring and correction accordingly 4. Hypertensive urgency: - currently getting better - Continue carvedilol 25 mg p.o. twice daily, lisinopril 40 mg p.o. daily - Monitor 5. Elevated troponin: - Denies chest pain - Most lkely Type II Demand (not wearing home oxygen) - repeat trops negative, no intervention as of now as per cardio - event monitor at the time of discharge 6. DVT, bilateral lower limbs: - Per previous documentation Patient is a poor historian he denied blood clots in his legs. He is has an IVC filter. - Cardiology referral at the time of discharge 7. Osteoarthritis of multiple joints, unspecified osteoarthritis type: - Patient is non-ambulatory and now has bedsores. - Pending PT evaluation - Frequent repositioning 8. Sacral decubitus ulcer: - Sacral and right heel ulcer will need heel protectors wound care and physical therapy family needs to be educated regarding need for turning as does the patient - Pending Case Management on discharge planning 9. Hyperlipidemia, unspecified hyperlipidemia type: - Continue atorvastatin 40 mg p.o. daily 10. Coronary artery disease involving [place] heart with angina pectoris, unspecified vessel or lesion type: - cont home medications, patient not on aspirin? cardio referral at the time of discharge - cont beta blockers and statins 11. Chronic congestive heart failure, unspecified heart failure type: - Euvolemic - Continue cardioprotective medications including atorvastatin, carvedilol, Lasix, lisinopril Plan: VTE PPX: Heparin twice daily GI PPX: PPI Code Status: Full Code PDMP PDMP Reviewed: Not Reviewed Attestations Medical Necessity Statement*: Patient will stay overnight for management of his syncope versus seizures and acute kidney injury Time Spent in Patient Care: 16 - 35 minutes (>than 50% of time spent in counselling and/or direct pt care on unit). Other Attestations: Patient condition has been discussed at length with the patient/family, I have independently reviewed the chart labs imaging/diagnostics/EKG. the goals of care and code status with the patient/family/NOK/legal unit support representative, and documented accordingly. I have reconciled the medications after confirmation/comorbidities/current clinical condition. The management has been done according to the current clinical condition with respect to patient goals of care and based on recommendations/guidelines. The patient/family has been informed about the current condition and further plan of care. Agreed with the plan of care and understood without any language barrier. Every effort was made to ensure accuracy of health consultant. Any obvious errors or omissions should be clarified with the author of the document. Coding Level of Care Code Acute Code for Chg Fwd Diagnoses Vasovagal syncope R55 Syncope type: vasovagal syncope Seizures R56.9 Acute kidney injury N17.9 Hypertensive urgency I16.0 Elevated troponin R79.89 DVT, bilateral lower limbs I82.403 Osteoarthritis of multiple joints, unspecified osteoarthritis type M15.9 Osteoarthritis location: multiple joints Osteoarthritis type: unspecified Sacral decubitus ulcer L89.159 Hyperlipidemia, unspecified hyperlipidemia type E78.5 Hyperlipidemia type: unspecified Coronary artery disease involving [place] heart with angina pectoris, unspecified vessel or lesion type I25.119 Associated angina: with unspecified angina Coronary Disease-Associated Artery/Lesion type: unspecified vessel or lesion type [place] vs. transplanted heart: [place] heart Chronic congestive heart failure, unspecified heart failure type I50.9 Heart failure chronicity: chronic Heart failure type: unspecified
--- NOTE | 2025-08-13 15:09 | P.CONIM_ITS ---
<Statement entered by Geovanni Knapp M.D - 08/19/25 11:08> Patient was cared for in conjunction with an advanced practice practitioner.? I reviewed the chart and all pertinent data including imaging, telemetry, and laboratory results.? I discussed the patient in detail with the advanced practice practitioner.? Please see? their documentation for consult note, testing results and agreed upon plan of care for the patient. Providers/Reason For Consult 2 Consulting Physician/Specialty*: Dr. Knapp Reason for Consult*: Syncope Requesting Physician: Dr. Carlos Attending Physician: Flynn Carlos MD Primary Care Provider: Nellie Joe NP History of Present Illness History of Present Illness Ravindra Lam is a 75 year old male hx of CAD s/p CABG, CKD, who was found unconscious by his brother in an unconsious state for around 4 minutes. Patient states he remembers he accidentally got mixed up when taking his medications and think he took more than he was supposed to. Denies hx of chest pressure or shortness of breath. EKG showed no acute ST or T wave abnormalities. Troponin was elevated but flat at 82-81-74. Delta negative. Echo was obtained that showed normal EF with no significant valvular abnormalities. Review of Systems 2 Narrative: Denies chest pain Denies shortness of breath denies s/s of stroke denies palpitations, abnormal heart rhythm Medications/Allergies Home Medications ?Medication ?Instructions ?Recorded ?Confirmed ?Last Taken ?Type atorvastatin 40 mg tablet 40 mg PO DAILY 07/19/2007/24 Unknown History baclofen 10 mg tablet 10 mg PO TID PRN Muscle Spas m 07/19/20 08/12/25 Unknown History carvedilol 12.5 mg tablet 12.5 mg PO Q12H 07/19/20 Unknown History furosemide 20 mg tablet 20 mg PO DAILY 07/19/2007/24 Unknown History gabapentin 400 mg capsule 400 mg PO BID 07/19/2008/12 Unknown History magnesium oxide 400 mg (241.3 mg 400 mg PO DAILY 07/1908/12/25 Unknown History magnesium) tablet ferrous sulfate 325 mg (65 mg 325 mg PO DAILY 08/12/25 08/12/25 Unknown History iron) tablet,delayed release pantoprazole 40 mg tablet,delayed 40 mg PO BID 5 08/12/25 Unknown History release potassium chloride 10 mEq 10 meq PO BID 08/12/2508/12 Unknown History tablet,extended release sertraline 25 mg tablet 25 mg PO DAILY 08/12/2507/24 Unknown History tramadol 25 mg tablet 25 mg PO TID PRN Pain 08/12/25 Unknown History Allergies Allergy/AdvReac Type Severity Reaction Status Date / Time No Known Allergies Allergy Verified 07/20/20 16:29 Current Medications Generic Name Dose Route Start Last Admin Trade Name Freq PRN Reason Stop Dose Admin Hydrocodone Bitart/Acetaminophen 1 tab 08/12/25 00:13 08/12/25 20:41 Hydrocodone-Acetaminophen 5-325 Mg Tablet PO 1 tab BID PRN Administration PAIN Atorvastatin Calcium 40 mg 08/12/25 05:00 08/13/25 05:30 Atorvastatin 40 Mg Tablet PO 40 mg DAILY MANUELA Administration Budesonide 0.5 mg 08/12/25 20:00 08/13/25 08:37 Budesonide 0.5 Mg/2 Ml Neb INHALATION 0.5 mg BID.RESPIRATORY MANUELA Administration Carvedilol 25 mg 08/11/25 22:55 08/13/25 05:30 Carvedilol 25 Mg Tablet PO 25 mg BID MANUELA Administration Ferrous Sulfate 325 mg 08/13/25 05:00 08/13/25 05:31 Ferrous Sulfate Ec 325 Mg Tablet PO 325 mg DAILY MANUELA Administration Furosemide 20 mg 08/11/25 22:20 08/13/25 05:31 Furosemide 20 Mg Tablet PO 20 mg DAILY MANUELA Administration Gabapentin 400 mg 08/12/25 05:00 08/13/25 12:06 Gabapentin 400 Mg Capsule PO 400 mg TID MANUELA Administration Lactated Ringer's 1,000 mls @ 75 mls/hr 08/13/25 09:00 08/13/25 09:30 Lactated Ringers IV 08/14/25 08:59 75 mls/hr .[id number] MANUELA Administration Lisinopril 40 mg 08/12/25 05:00 08/13/25 05:31 Lisinopril 20 Mg Tablet PO 40 mg DAILY MANUELA Administration Magnesium Oxide 400 mg 08/12/25 05:00 08/13/25 05:29 Magnesium Oxide 400 Mg Tablet PO 400 mg DAILY MANUELA Administration Meloxicam 15 mg 08/12/25 05:00 08/13/25 05:30 Meloxicam 7.5 Mg Tablet PO 15 mg DAILY MANUELA Administration Pantoprazole Sodium 40 mg 08/13/25 05:00 08/13/25 05:[address] 40 Mg Tablet PO 40 mg DAILY MANUELA Administration Potassium Chloride 10 meq 08/12/25 17:00 08/13/25 05:30 Potassium Chloride Er 10 Meq Tablet PO 10 meq BID MANUELA Administration Sertraline HCl 25 mg 08/13/25 05:00 08/13/25 05:30 Sertraline 50 Mg Tablet PO 25 mg DAILY MANUELA Administration Tramadol HCl 25 mg 08/12/25 13:16 08/12/25 14:46 Tramadol 50 Mg Tablet PO 25 mg TID PRN Administration Pain PFSH Acute 2 PFSH: Medical History (Updated 08/13/25 @ 20:13 by Flynn Carlos MD) Aneurysm of infrarenal abdominal aorta 4.4cm AP, 5.1 cm craniocaudal on 07/19/2020 CHF (congestive heart failure) Hyperlipidemia CAD (coronary artery disease) Surgical History Hx of CABG Social History (Updated 08/11/25 @ 23:14 by Peter Myles MD) Smoking and tobacco/nicotine status: unknown if used tobacco/nicotine Alcohol intake: never Substance/Drug Use: never Additional social history: Patient is companied by his brother Jeremiah. Patient wants full code as discussed today with Peter Myles MD on 08/11/2025. 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 Vitals/I&O/Wt Last Vital Signs Temp 98.5 F 08/13/25 11:55 Pulse 57 L 08/13/25 11:55 Resp 19 H 08/13/25 11:55 BP 117/54 08/13/25 11:55 Pulse Ox 95 08/13/25 11:55 O2 Del Method Nasal Cannula 08/13/25 11:55 O2 Flow Rate 2 08/13/25 08:00 08/13/25 08/13/25 08/13/25 06:59 14:59 22:59 Intake Total 240 / 240 Output Total 300 / 300 Balance -60 / -60 Weight last 48 hrs Weight 234 lb 6 oz Weight 230 lb 8 oz Weight 227 lb 6.4 oz Weight 240 lb Physical Exam 2 Narrative: General: No apparent distress Neck: No carotid bruit bilaterally Respiratory: Normal respiratory effort, clear to auscultation bilaterally throughout all lung marcus, no use of accessory muscles Cardio: No JVD, regular rate, regular rhythm, S1 S2 normal, no murmurs, peripheral pulses 2+ radial palpated bilaterally Extremities: Full ROM, normal, normal capillary refill, no cyanosis or edema Neuro: Alert and oriented x4 Psych: Affect normal Skin: No rashes or lesions noted, no wounds Data 08/14/25 04:40 08/14/25 04:40 A&P Assessment and plan 1. Syncope: 2. CAD (coronary artery disease): 3. Elevated troponin: Plan: episode presents as possible vasovagal. It was recommended that patient get a stress test to rule out acute coronary syndrome. At this time patient does not want ischemic workup. At this time would recommend event monitor at discharge for evaluation of any arrhythmias that could have potentially cause syncopal episode. This has been ordered. F/U appointment has been ordered. At this time, cardiology will sign off of this patient. As always, if our assistance is needed in the future, please consult us. Thank you for allowing us to take care of this very pleasant patient. PDMP PDMP Reviewed: Not Reviewed Consult Attestations 2 Medical Necessity Statement: deferred to primary Coding Level of Care Code Acute Code for Chg Fwd Diagnoses Syncope R55 CAD (coronary artery disease) I25.10 Elevated troponin R79.89
[2025-08-13 15:12] LABS: Troponin 5 6HR 74.71 ng/L (0-15)
--- NOTE | 2025-08-13 17:21 | ECG_ITS ---
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1950 Requested By: Flynn Carlos Order Number: [id number] Reading MD: FANTA MARIANO Measurements Intervals [place]iken Rate: 70 P: 53 VT: 153 QRS: 52 QRSD: 98 T: 4 QT: 394 QTc: 428 Interpretive Statements SINUS RHYTHM MINIMAL ST DEPRESSION [0.025+ mV ST DEPRESSION] Compared to ECG 08/13/2025 10:41:28 ST (T wave) deviation now present Sinus bradycardia no longer present T-wave abnormality no longer present Possible ischemia no longer present Electronically Signed On 08-15-2025 20:39:57 STEAM TABLE WORKER by FANTA MARIANO [email or web address]
[2025-08-13] MEDS: levETIRAcetam 750 MG in sodium chloride 0.9% (100 ml) 100 ML 430 MG IV (21:55)
[2025-08-13] MEDS: heparin 5,000 unit/mL INJ 1 mL 5000 UNIT SUBCUT (21:55)
[2025-08-14] VITALS (7 sets, daily range): BP systolic 127–160; BP diastolic 62–68; PULSE 56–68; RESP 16–18; TEMP 36.3–36.8; O2SAT 90–97; BMI 33.8
[2025-08-14] MEDS: ferrous sulfate EC 325 mg Tablet PO (04:43)
[2025-08-14 05:12] LABS: Hematocrit 37.3 % (37-53); Hemoglobin 11.60 g/dL (11.27-16.99); Mean Corpuscular HGB Conc 31.1 g/dL (30-55); Mean Corpuscular Hemoglobin 28.2 pg (27-33); Mean Corpuscular Volume 90.8 fl (82-101); Nucleated Red Blood Cells % 0 %; Platelet Count 181 10^3/cmm (157-399); Red Blood Count 4.11 10^6/uL (3.85-5.65); White Blood Count 10.26 10^3/uL (3.29-11.43)
[2025-08-14 05:40] LABS: Alanine Aminotransferase 11 U/L (0-41); Albumin Level 3.2 g/dL (3.5-5.2); Alkaline Phosphatase 61 U/L (40-130); Anion Gap 12.2 (5-19); Aspartate Amino Transferase 13 U/L (0-40); Blood Urea Nitrogen 22 mg/dL (8-23); Calcium 8.4 mg/dL (8.5-10.5); Carbon Dioxide 26 mmol/L (22-29); Chloride 104 mmol/L (98-107); Globulin 2.7 g/dL (1.3-4.6); Glucose 89 mg/dL (65-115); Osmolality Calculated 289 mOsm/kg (285-295); Potassium 4.2 mmol/L (3.5-5.1); Sodium 138 mmol/L (136-145); Total Protein 5.9 g/dL (6.6-8.7)
[2025-08-14] MEDS: heparin 5,000 unit/mL INJ 1 mL 5000 UNIT SUBCUT (07:49)
[2025-08-14] MEDS: levETIRAcetam 750 MG in sodium chloride 0.9% (100 ml) 100 ML 430 MG IV (07:49)
--- NOTE | 2025-08-14 18:58 | PM.DCS ---
Discharge Providers Date of Admission: 08/11/25 21:42 Date of Discharge: August 14, 2025 Attending Provider at Admission: Peter Myles MD Attending Provider at Discharge: Flynn Carlos MD Primary Care Provider: Nellie Joe NP Diagnoses at Discharge Discharge Diagnosis 1. Vasovagal syncope: 2. 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 Elevated troponin: Reason for Visit Reason for Visit: syncope Brief History: As per the previous retrospective notes and the admitting physician history: Ravindra Lam is a 75 year old male comes in with episode of nonresponsiveness for 4 minutes. He is accompanied by his brother Jeremiah who gives the history of the event. They were watching football together and patient was conversing regularly then did not answer a question. Bill went over and talk to the patient who did not answer and then shook him also did not answer. Patient was with eyes rolled back in his head and a little bit of jerking in the arms but was not stiff. He called 911 and ambulance. Reports says patient was awake but not answering questions blood sugar 154. Blood pressure 154/88 pulse 99 O2 sat 95% there is no other meaningful documentation from EM. Patient has a history of coronary artery disease CABG, COPD, CHF he has a home health RN because patient cannot walk and he has bedsore in his sacrum as well as the right heel. Patient typically is alert and orient x 2 at least. His Valeria is his caregiver but she is out of town in [facility] because her mother . She left on Wednesday and will be back tomorrow. Patient's brother Jeremiah also from [facility] is caring for the patient. He states he is turning the patient every time he changes the patient but not otherwise. Patient had 4 stools today. He has been constipated with recent Milk of Magnesia given. Patient is confused as to how he got here. He has been told by his brother. Brother states that patient is clear of mind now. Dr. Valdes thought that maybe the patient had vasovagal response to bowel movements today. Patient states that his blood pressure has been high the last 2 days. Patient tells me that his hips are deteriorated and he was told in the hospital during a hospitalization 1 year ago at [facility] that operation may not be possible for the degree of disease in his hips. Patient tells me he also has knee pain. Hospital Course Hospital Course Patient admitted as a case of possible vasovagal syncope. CT head was done and did not show any acute concerning stroke. Patient history was also suggestive of possible seizures since there was rolling of eyes and urinary incontinence. I discussed the case with neurology and started him on Keppra 750 mg twice daily with discharge and neurology follow-up for EEG and MRI as outpatient. The patient was also for nuclear stress test in the light of syncope and cardiology was taken on board however the patient did not want to proceed since he was claustrophobic. And deferred the procedure. Cardiology recommendation greatly appreciated suggested to follow him with that outpatient and he was discharged on event monitor to be followed as outpatient. He also had acute kidney injury and was on lisinopril. Lisinopril was held and he was started on amlodipine with gentle hydration and improved his kidney dysfunction. Patient also had higher blood pressure and his medications were continued but lisinopril was discontinued. He was given primary care physician follow-up for his healthcare maintenance the time of discharge. Patient is more or less bedbound and had home hospice therefore was discharged with home hospice and further workup of his syncope versus seizures to be done as outpatient based on discussion with the neurologist. Medications were reconciled after confirmation and according to patient comorbidities and appropriate follow-ups and referrals were provided at the time of discharge. Patient condition has been discussed at length with the patient/family, I have independently reviewed the chart labs imaging/diagnostics/EKG. the goals of care and code status with the patient/family/NOK/legal business representative, and documented accordingly. The management has been done according to the current clinical condition with respect to patient goals of care and based on recommendations/guidelines. The patient/family has been informed about the current condition and further plan of care. Agreed with the plan of care and understood without any language barrier. Every effort was made to ensure accuracy of cable rigger. Any obvious errors or omissions should be clarified with the author of the document. Physical Exam Narrative: General: Alert and oriented, lying comfortably without any distress HEENT: Normocephalic, atraumatic, grossly unremarkable exam Cardio: normal rate rhythm, normal S1-S2 without any murmurs, rubs, or gallops and JVD normal Respiratory: mild coarse crackles due to secretions, no wheezes, no stridor, able to speak in full sentences. GI: Abdomen soft, nontender, nondistended, normoactive bowel sounds present all 4 quadrants, Neuro: intact cranial nerves motor and sensory and cerebellar/coordination function without any focal neurological deficit Behavior: Appropriate and cooperative Extremities: Adequate palpable pulses, mild trace edema with some chronic skin changes and superficial skin scaling Discharge Data Studies Completed and Pending Completed Studies During Hospitalization Category Date Time Status CT abdomen pelvis wo con [id number] Stat Cat Scan 08/11/25 19:[address] head wo con* [id number] Stat Cat Scan 08/11/25 19:03 Completed XR chest 1V portable [id number] Stat Exams 08/11/25 19:03 Completed XR knee LT 1-2V [id number] Routine Exams 08/12/25 08:00 Completed XR knee RT 1-2V 10400 Routine Exams 08/12/25 08:00 Completed XR pelvis 1-2V* [id number] Routine Exams 08/12/25 08:00 Completed CV carotid duplex BI* [id number] Routine Ultrasound 08/12/25 07:26 Completed CV. echo complete* [id number] Routine Ultrasound 08/12/25 07:26 Completed Pending at discharge Category Date Time Status Cardiac Stress Test MIBI [Sestamibi Stress Test Request Exams 08/12/25 13:08 Stop Req ] Routine Cardiac Stress Test MIBI [Sestamibi Stress Test Request Exams 08/13/25 05:00 Ordered ] Routine Urine Culture Stat Lab 08/13/25 08:18 Results Radiology Impressions Abdomen/Pelvis CT 08/11/25 19:03 IMPRESSION: 1. Moderate stool burden in the rectum. No evidence of bowel obstruction. 2. Diverticulosis coli. No evidence of acute diverticulitis. 3. Abdominal aortic aneurysm. COMMENTS: For patients with an IVC filter, recommend assessment for a management plan for the patient's IVC filter. If there is no established management plan, recommend referral to an interventional clinician on a nonemergent basis for evaluation. Chest X-Ray 08/11/25 19:03 IMPRESSION: No acute abnormality identified. Head CT 08/11/25 19:03 IMPRESSION: No change since previous study with chronic inferior left cerebellar stroke. No acute intracranial hemorrhage, mass effect or hydrocephalus, unchanged. Carotid Doppler Study 08/12/25 07:26 IMPRESSION: 1. 50-69% diameter stenosis left external carotid artery. 2. No other hemodynamically significant carotid arterial stenoses or occlusions. REFERENCES: SRU CRITERIA. The degree of internal carotid artery stenosis is based on criteria defined by the Society of Radiologists in Ultrasound (SRU). Normal is no stenosis. Mild is less than 50% stenosis. Moderate is 50-69% stenosis. Severe is greater than 69% stenosis to near occlusion. Near occlusion is a markedly narrowed lumen. Total occlusion is no detectable patent lumen. Fransisca Valentine, et al. Carotid Artery Stenosis: Robledo-Scale and Doppler US Diagnosis-Society of Radiologists in Ultrasound Consensus Conference. Radiology 2003; 229:340-346. Knee X-Ray 08/12/25 08:00 IMPRESSION: 1. Small right knee joint effusion. 2. No other acute findings. 3. Additional details as above. Pelvis X-Ray 08/12/25 08:00 IMPRESSION: 1. Severe arthritis both hips with marked narrowing of the joint spaces and deformities of both femoral heads. 2. 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 Laboratory Results WBC 10.26 10^3/uL (3.29-11.43) 08/14/25 04:40 RBC 4.11 10^6/uL (3.85-5.65) 08/14/25 04:40 Hgb 11.60 g/dL (11.27-16.99) 08/14/25 04:40 Hct 37.3 % (37-53) 08/14/25 04:40 MCV 90.8 fl (82-101) 08/14/25 04:40 MCH 28.2 pg (27-33) 08/14/25 04:40 MCHC 31.1 g/dL (30-55) 08/14/25 04:40 RDW 14.2 % (12.1-15.1) 08/14/25 04:40 Plt Count 181 10^3/cmm (157-399) 08/14/25 04:40 MPV 10.6 fL (7.4-10.4) H 08/14/25 04:40 Neut % (Auto) 66.0 % 08/14/25 04:40 Lymph % (Auto) 14.6 % 08/14/25 04:40 Bowie % (Auto) 13.8 % 08/14/25 04:40 Eos % (Auto) 4.5 % 08/14/25 04:40 Baso % (Auto) 0.6 % 08/14/25 04:40 Neut # (Auto) 6.77 10^3/uL (1.8-7.7) 08/14/25 04:40 Lymph # (Auto) 1.5 10^3/uL (0.8-4.8) 08/14/25 04:40 Bowie # (Auto) 1.4 10^3/uL (0.2-0.9) H 08/14/25 04:40 Eos # (Auto) 0.5 10^3/uL (0.0-0.8) 08/14/25 04:40 Baso # (Auto) 0.1 10^3/uL (0.0-0.1) 08/14/25 04:40 Nucleated RBC % (auto) 0 % 08/14/25 04:40 Nucleated RBCs # 0.0 /100WBC 08/14/25 04:40 Sodium 138 mmol/L (136-145) 08/14/25 04:40 Potassium 4.2 mmol/L (3.5-5.1) 08/14/25 04:40 Chloride 104 mmol/L (98-107) 08/14/25 04:40 Carbon Dioxide 26 mmol/L (22-29) 08/14/25 04:40 Anion Gap 12.2 (5-19) 08/14/25 04:40 BUN 22 mg/dL (8-23) 08/14/25 04:40 Creatinine 0.9 mg/dL (0.7-1.2) 08/14/25 04:40 GFR Calculation Not Reportable 08/14/25 04:40 Glucose 89 mg/dL (65-115) 08/14/25 04:40 Calculated Osmolality 289 mOsm/kg (285-295) 08/14/25 04:40 Lactic Acid 1.7 mmol/L (0.5-2.2) 08/11/25 19:25 Calcium 8.4 mg/dL (8.5-10.5) L 08/14/25 04:40 Phosphorus 2.4 mg/dL (2.5-4.5) L 08/11/25 19:25 Magnesium 2.3 mg/dL (1.7-2.3) 08/13/25 05:02 Total Bilirubin 0.8 mg/dL (0.15-1.2) 08/14/25 04:40 AST 13 U/L (0-40) 08/14/25 04:40 ALT 11 U/L (0-41) 08/14/25 04:40 Alkaline Phosphatase 61 U/L (40-130) 08/14/25 04:40 Troponin T Baseline 82 ng/L (0-15) H 08/13/25 09:02 Troponin T 60 Minute 81.51 ng/L (0-15) H 08/13/25 10:22 Delta Troponin T -0.49 ABS# (0-10) L 08/13/25 10:22 Troponin T Hi Sens 6Hr 74.71 ng/L (0-15) H 08/13/25 14:48 Troponin T Hi Sens 6Hr Delta -7.29 ng/L (0-12) L 08/13/25 14:48 C-Reactive Protein 16.6 mg/L (0.0-4.9) H 08/11/25 19:25 NT-Pro-B Natriuret Pep 1659 pg/mL (0-450) H 08/11/25 19:25 Total Protein 5.9 g/dL (6.6-8.7) L 08/14/25 04:40 Albumin 3.2 g/dL (3.5-5.2) L 08/14/25 04:40 Globulin 2.7 g/dL (1.3-4.6) 08/14/25 04:40 Urine Color Dark yellow (Yellow) A 08/13/25 08:18 Urine Appearance Cloudy (CLEAR) A 08/13/25 08:18 Urine pH 5.0 (5-7) 08/13/25 08:18 Ur Specific North 1.029 (1.005-1.030) 08/13/25 08:18 Urine Protein 2+ (Negative) A 08/13/25 08:18 Urine Glucose (UA) Negative (Normal) 08/13/25 08:18 Urine Ketones Trace (Negative) 08/13/25 08:18 Urine Blood Negative (Negative) 08/13/25 08:18 Urine Nitrate Negative (Negative) 08/13/25 08:18 Urine Bilirubin 2+ (Negative) H 08/13/25 08:18 Urine Urobilinogen 1.0 mg/dL (Negative) 08/13/25 08:18 Ur Leukocyte Esterase 2+ (Negative) A 08/13/25 08:18 Urine RBC 11-20 /hpf (0-2) H 08/13/25 08:18 Urine WBC >100 /hpf (0-5) H 08/13/25 08:18 Ur Squamous Epith Cells 0-5 /hpf (0-5) 08/13/25 08:18 Amorphous Sediment Not Reportable 08/13/25 08:18 Urine Bacteria None seen /hpf (NONE) 08/13/25 08:18 Hyaline Casts 98.04 /lpf 08/13/25 08:18 Urine Yeast 4+ /hpf H 08/13/25 08:18 Vitals Last Vital Signs Temp 98.0 F 08/14/25 16:26 Pulse 56 L 08/14/25 16:33 Resp 18 08/14/25 16:26 BP 142/65 08/14/25 16:33 Pulse Ox 96 08/14/25 16:33 O2 Del Method Nasal Cannula 08/14/25 16:26 O2 Flow Rate 1 08/14/25 08:45 Discharge Plan Discharge Patient Disposition: Hospice - Home Condition: Stable Prescriptions: New amlodipine 5 mg Tablet 5 mg PO DAILY 60 Days Qty: 60 0RF Phospha 250 Neutral 250 mg Tablet 1 tab PO BID 3 Days Qty: 6 0RF levetiracetam [Keppra] 750 mg tablet 750 mg PO BID 60 Days Qty: 120 0RF Continued atorvastatin 40 mg tablet 40 mg PO DAILY carvedilol 12.5 mg tablet 12.5 mg PO Q12H gabapentin 400 mg capsule 400 mg PO BID magnesium oxide 400 mg (241.3 mg magnesium) Tablet 400 mg PO DAILY baclofen 10 mg tablet 10 mg PO TID PRN (Reason: Muscle Spasm) furosemide 20 mg Tablet 20 mg PO DAILY potassium chloride 10 mEq tablet extended release 10 meq PO BID pantoprazole 40 mg tablet,delayed release (DR/EC) 40 mg PO BID sertraline 25 mg tablet 25 mg PO DAILY ferrous sulfate 325 mg (65 mg iron) tablet,delayed release (DR/EC) 325 mg PO DAILY tramadol 25 mg Tablet 25 mg PO TID PRN (Reason: Pain) Pattern Marking Supervisor OK for DC: Cardiology and Neurology Discharge Order = DC NOW: Discharge Order (Routine); Ordered 08/14/25 Ordered By: Flynn Carlos Other Ambulatory Orders: EEG amplitude integrated aEEG (Routine) Timeframe: 1 Week Facility: [facility] - Location: Neurology Ordered By: Flynn Carlos MR head orbits wo con 45612/[id number] (Routine) Timeframe: 1 Week Facility: [facility] - Location: Radiology Ordered By: Flynn Carlos MCT/Event Monitor 21 Days (Routine) Timeframe: 1 Week Facility: [facility] - Location: Radiology Ordered By: Flynn Carlos Referrals: [facility] [Outside] Christine Avery MD [Physician, Neurology] - 12/06/25 9:00 am Referral Note: seizures work up, discharged on Nanci Ruiz NP [Nurse Practitioner, Cardiology] - 09/03/25 1:00 pm Referral Note: Leighton Montoya MD [Staff Physician, Family Practice] - 2 weeks Referral Note: post discharge follow up for healthcare maintenance We have notified your physician's clinic of the need for a follow-up appointment to be scheduled. If you have not heard from them within the next 2 business days, please call them directly. Discharge Diet: Advance as tolerated Discharge Activity: Limit activity as instructed Patient Instructions: Amlodipine (By mouth), Levetiracetam (By mouth) (Keppra, Keppra XR, Spritam, Elepsia XR), Hypertensive Crisis (DC), Opioid Safety, Pain Management, Patient Portal & Viv Instructions, Seizures Discharge Attestations Time Spent in Discharge Care*: greater than 30 min Specific Discharge Activities: educating patient, educating and/or supporting family/caregiver, discussing with pcp/other providers, discussing with therapeutic case manager/social workers/dc planners, documenting/other paperwork and evaluating patient/reviewing data Status at Discharge: Cognitive status at discharge: cognitively intact, Behavioral status at discharge: cooperative, Functional status at discharge: bed bound, Overall status at discharge: patient is back to baseline Quality Metrics Clinical Quality Measures [ No reported AMI, CVA or VTE this stay] Coding Level of Care Code Acute Code for Chg Fwd Diagnoses Vasovagal syncope R55 Syncope type: vasovagal syncope 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 transplanted heart: knik heart Elevated troponin R79.89
== END 2025-08-14 16:33 | disposition hospice, home (50) | DRG 101 ==
LOC: ER 22:28 → MEDSURG 23:15
PROVIDERS: Registered Nurse; Admitting Provider Internal Medicine; Emergency Provider Student in an Organized Health Care Education/Training Program; PCP Nurse Practitioner Family; Visit Provider Student in an Organized Health Care Education/Training Program
DX: R56.9 Unspecified convulsions (principal); N17.9 Acute kidney failure, unspecified; I13.0 Hypertensive heart and chronic kidney disease with heart failure and stage 1 through stage 4 chronic kidney disease, or unspecified chronic kidney disease; I16.0 Hypertensive urgency; R55 Syncope and collapse; Z51.5 Encounter for palliative care; R32 Unspecified urinary incontinence; R79.89 Other specified abnormal findings of blood chemistry; M19.90 Unspecified osteoarthritis, unspecified site; I25.119 Atherosclerotic heart disease of native coronary artery with unspecified angina pectoris; N18.9 Chronic kidney disease, unspecified; L89.159 Pressure ulcer of sacral region, unspecified stage; L89.619 Pressure ulcer of right heel, unspecified stage; I50.9 Heart failure, unspecified; M54.9 Dorsalgia, unspecified; F40.240 Claustrophobia; M16.0 Bilateral primary osteoarthritis of hip; M17.0 Bilateral primary osteoarthritis of knee; E66.9 Obesity, unspecified; E78.5 Hyperlipidemia, unspecified; J44.9 Chronic obstructive pulmonary disease, unspecified; Z86.718 Personal history of other venous thrombosis and embolism; Z79.899 Other long term (current) drug therapy; Z95.1 Presence of aortocoronary bypass graft; Z68.33 Body mass index [BMI] 33.0-33.9, adult; Z99.81 Dependence on supplemental oxygen
CPT/HCPCS: 36415; 70450; 71045; 72170; 73560; 74176; 80053; 81001; 83605; 83735; 83880; 84100; 84484; 85025; 86140; 87086; 93005; 93306; 93880; 94640; 94664; 96372; 96374; 96375; 96376; 97161; 99285; J0360; J1644; J1650; J1953; J2270; J3490; J7120; J7626; J9999